=== PATIENT | male | born 1945 | race Caucasian/White ===

== ENCOUNTER 2019-12-14 18:00 | Inpatient (IN) | payer OTHER, SELFPAY ==
[2019-12-14] VITALS (14 sets, daily range): BP systolic 134–168; BP diastolic 50–87; PULSE 78–102; RESP 14–20; TEMP 36.1–37.2; O2SAT 93–100
--- NOTE | 2019-12-14 14:43 | P.HP_ITS ---
H&P: HPI History of Present Illness Chief complaint: BLADDER CLOT Narrative: Clint Ceron is a 74 year old male, well known to me, with a long history of prostate carcinoma that was metastatic at diagnosis in November 2016. He is being managed with a combination of Eligard and androgen receptor inhibitors per his medical oncologist Dr. Cabrera. Patient is known to have occasional problematic local recurrences that have required resection at the bladder neck in the past, most recently in May 2018. Since starting a new blood thinner (the name of which he can't recall) he has been having persistent hematuria for the past 6 weeks. He is recently begun to develop episodes of near clot retention. He was seen in the office today were large clots were evacuated decision was made to proceed with formal clot evacuation and cauterization. Review of Systems Cardiovascular: Cardiovascular: Denies chest pain, Denies lightheadedness, Denies palpitations and Denies dyspnea Respiratory: Respiratory: Denies dyspnea Gastrointestinal: Gastrointestinal: Denies diarrhea, Denies nausea and Denies vomiting Genitourinary: Genitourinary: Reports hematuria and Denies dysuria Endocrine: Endocrine: Denies palpitations Meds Home Medications and Allergies Allergies Allergy/AdvReac Type Severity Reaction Status Date / Time No Known Allergies Allergy Unverified 01/09/19 14:56 Exam Const: General: no acute distress Resp: Effort & Inspection: normal respiratory effort GI: Inspection: non-distended GI Palp: No abdominal tenderness and No Guarding due to palpation present (GI) Auscultation: normal bowel sounds Assessment and Plan Assessment and plan (1) Gross hematuria: Code(s): R31.0 - Gross hematuria Status: Acute (2) Prostate cancer: Code(s): C61 - Malignant neoplasm of prostate Status: Acute Assessment and Plan: * Cystoscopy with clot evacuation
--- NOTE | 2019-12-14 14:53 | ECG_ITS ---
Measurements Intervals [place] Rate: 84 P: 29 VA: 160 QRS: 22 QRSD: 85 T: 60 QT: 388 QTc: 461 Interpretive Statements SINUS RHYTHM EARLY PRECORDIAL R/S TRANSITION BORDERLINE ECG Electronically Signed On 12-14-2019 15:14:48 CDT by Kemal Gramajo D.O.
--- NOTE | 2019-12-14 15:26 | P.PNAN_ITS ---
Anes - Initial Pre Proc Eval Procedure: Operation Date: 12/14/19 14:45 Proposed Procedures p Cystoscopy, Evacuation Bladder Clots - Chase Aguirre MD Date/Time: 12/14/19 15:26 Surgeon: Chase Aguirre MD Pre Op Diagnosis: BLADDER CLOT Patient Data Age: 74 Gender: M Height: Weight: Allergies Allergy/AdvReac Type Severity Reaction Status Date / Time No Known Allergies Allergy Unverified 01/09/19 14:56 Patient hx anesthesia problems: none Family hx anesthesia problems: none [facility] Past Medical History Medical History (Updated 12/14/19 @ 15:29 by Demetrius Reyes MD) Diabetes Gastroesophageal reflux disease HTN (hypertension) Hyperlipidemia Obesity KENISHA (obstructive sleep apnea) Prostate cancer metastatic at diagnosis in November 2016 Anes - Eval Final PreProcedure Day of Procedure 12/14/19 15:26 Patient weight: obese Heart: regular rate and rhythm Lungs: clear to auscultation and normal air movement Airway: Mallampati scale class II Neurological: alert and oriented Last oral intake: >/= 8 hours ASA classification: III Emergent: no Anesthetic plan: proceed Anesthesia type and monitoring: general LMA Informed Consent: The patient's anesthetic plan and its attendant risks and benefits were discussed with the patient/family/POA. Questions were solicited and answers provided to the satisfaction of the patient/family/POA.
[2019-12-14] MEDS: LACTATED RINGERS 1,000 ML 30 ML IV CONT (15:40)
--- NOTE | 2019-12-14 15:51 | SUR.OPER ---
DVT IN PATIENTS RIGHT LEG. LEG IS RED AND WARM TO TOUCH WITH SWELLING. SPOKE WITH DR PETERS ABOUT KIKO. WANTS TO PROCEED WITH KIKO
[2019-12-14 16:08] LABS: Blood Urea Nitrogen 17 mg/dL (9-20); Calcium 9.2 mg/dL (8.4-10.2); Carbon Dioxide 25 mmol/L (22-30); Chloride 102 mmol/L (98-107); Estimated Glomerular Filt Rate > 60; Glucose 121 mg/dL (75-110); Potassium 3.8 mmol/L (3.4-5.0); Sodium 135 mmol/L (137-145)
--- NOTE | 2019-12-14 16:42 | P.OP_ITS ---
Procedure Note - Detailed Date of procedure: 12/14/19 Pre-op diagnosis: BLADDER CLOT Procedure performed: 1. Cystoscopy, urethral dilatation. 2. Clot evacuation. 3. Cauterization bladder neck. Description of procedure: Patient is brought to the operative suite where he was prepped and draped in routine sterile visible on dorsal lithotomy position. Attempt to place a 24 F resectoscope sheath but could because of a mid penile urethral stricture. This turned out to be a fairly tight long stricture that I dilated with sounds. I did place the resectoscope sheath and evacuated a small amount of clot. His bladder was endoscopically normal otherwise. He had m inimal regrowth of prostate cancer at the bladder neck. I extensively cauterized the bladder neck. Urinary efflux was clear at this point. I removed the resectoscope and placed a 22 F hematuria catheter over a wire. Anesthesia: GLMA Surgeon: Siddharth Lord MD Estimated blood loss (mL): 0 Drains: Yes (22F hematuria catheter) Packing: No Pathology: none sent Complications: No immediate complications Condition: stable Disposition: PACU
[2019-12-14 17:17] LABS: Glucose Point of Care 132 (65-105)
--- NOTE | 2019-12-14 17:27 | SUR.PHASEI ---
REPORT TO SUSANNA BYRNE
--- NOTE | 2019-12-14 18:59 | ADMGEN ---
This patient, Clint Ceron, was admitted to 2 Medical Room 244-. Patient/family oriented to hospital policies and general routines including ID bracelet, bed and alarms, visiting hours, pain management, procedures, bathroom and other care routines, personal items, smoking policy, room service/diet, and visiting hours. Valuables list has been completed. Information on how to activate the Rapid Response Team has been discussed. Patient/Family are encouraged to report perceived risks to care and to ask questions if they do not understand what they are told or what they should do.
[2019-12-14] MEDS: DOCUSATE SODIUM 100 MG CAPSULE PO (23:43)
[2019-12-15] VITALS (13 sets, daily range): BP systolic 122–159; BP diastolic 43–58; PULSE 70–96; RESP 16–20; TEMP 36.1–36.8; O2SAT 92–99; BMI 30.2
[2019-12-15 04:52] LABS: Hemoglobin 6.2 g/dL (14.0-18.0)
[2019-12-15 05:02] LABS: Potassium 4.3 mmol/L (3.4-5.0)
[2019-12-15 05:11] LABS: Blood Urea Nitrogen 13 mg/dL (9-20); Calcium 8.4 mg/dL (8.4-10.2); Carbon Dioxide 29 mmol/L (22-30); Chloride 107 mmol/L (98-107); Estimated Glomerular Filt Rate > 60; Glucose 109 mg/dL (75-110); Sodium 137 mmol/L (137-145)
--- NOTE | 2019-12-15 07:01 | WPDUROPN2 ---
Progress Note: A&P Assessment and Plan (1) Prostate cancer: Code(s): C61 - Malignant neoplasm of prostate Status: Acute (2) Gross hematuria: Code(s): R31.0 - Gross hematuria Status: Acute Assessment and Plan: Urine has cleared overnight - will stop CBI. Transfuse 2 units PRBC's. Subjective Subjective Date/Time Seen: 12/15/19 07:01 Comfortable, sleeping. Review of Systems Cardiovascular: Cardiovascular: Denies chest pain, Denies lightheadedness, Denies palpitations and Denies dyspnea Respiratory: Respiratory: Denies dyspnea Gastrointestinal: Gastrointestinal: Denies diarrhea, Denies nausea and Denies vomiting Genitourinary: Genitourinary: Denies hematuria and Denies dysuria Endocrine: Endocrine: Denies palpitations Exam Const: General: no acute distress Resp: Effort & Inspection: normal respiratory effort GI: Inspection: non-distended GI Palp: No abdominal tenderness and No Guarding due to palpation present (GI) Auscultation: normal bowel sounds Objective Data Vital Signs Vital Signs: Vital Signs - 24 hr 12/14/19 15:47 12/14/19 16:19 12/14/19 16:35 Temperature 98.9 F 97.3 F L Pulse Rate 78 95 90 Respiratory Rate 18 20 18 Blood Pressure 134/78 158/87 H 139/57 L Pulse Oximetry 98 96 95 12/14/19 16:55 12/14/19 17:10 12/14/19 17:24 Temperature Pulse Rate 90 93 90 Respiratory Rate 14 20 20 Blood Pressure 148/68 H 153/64 H 153/64 H Pulse Oximetry 94 94 93 12/14/19 17:35 12/14/19 17:50 12/14/19 18:00 Temperature Pulse Rate 89 90 94 Respiratory Rate 18 20 20 Blood Pressure 150/50 H 167/73 H 167/74 H Pulse Oximetry 95 95 98 12/14/19 18:15 12/14/19 18:25 12/14/19 18:47 Temperature 97.0 F L Pulse Rate 90 93 96 Respiratory Rate 18 20 18 Blood Pressure 168/75 H 147/72 H 150/55 H Pulse Oximetry 97 96 100 12/14/19 19:17 12/14/19 20:17 12/15/19 00:17 Temperature 97.0 F L 97.8 F 97.7 F Pulse Rate 102 H 100 96 Respiratory Rate 18 16 16 Blood Pressure 151/61 H 157/53 H 152/58 H Pulse Oximetry 99 98 99 12/15/19 04:17 Temperature 97.6 F Pulse Rate 88 Respiratory Rate 16 Blood Pressure 159/55 H Pulse Oximetry 99 Intake/Output Intake/Output: Intake & Output 12/12/19 12/13/19 12/14/19 12/15/19 23:59 23:59 23:59 23:59 Intake Total 650 500 Output Total 4650 Balance -4000 500 Meds/Results Medications: Active Medications Generic Name Dose Route Start Last Admin Trade Name Freq PRN Reason Stop Dose Admin Hydrocodone Bitart/Acetaminophen 1 tab 12/14/19 18:32 [place] 5-325 Mg PO Q4H PRN Pain Rated 1-6 Cephalexin HCl 500 mg 12/15/19 13:00 Keflex Capsule PO QID LUCIANO Docusate Sodium 100 mg 12/14/19 18:32 12/14/19 23:43 Colace Capsule PO 100 mg BID LUCIANO Administration Fentanyl Citrate 25 mcg 12/14/19 15:30 Sublimaze IV PUSH Q2M PRN Pain Hydromorphone HCl 0.25 mg 12/14/19 15:30 Dilaudid Inj IV PUSH Q5M PRN Pain Hyoscyamine 0.125 mg 12/14/19 18:32 Levsin Tablet SUBLINGUAL Q6H PRN Bladder Spasm Lactated Ringer's 1,000 mls @ 30 mls/hr 12/14/19 14:55 12/14/19 18:30 Lr - Lactated Ringers Iv IV CONT 30 mls/hr .Q24H LUCIANO Infusion Lactated Ringer's 1,000 mls @ 30 mls/hr 12/14/19 15:30 12/14/19 17:01 Lr - Lactated Ringers Iv IV CONT Not Given .Q24H LUCIANO Lactated Ringer's 1,000 mls @ 30 mls/hr 12/14/19 15:30 Lr - Lactated Ringers Iv IV CONT .Q24H LUCIANO Dextrose/Lactated Ringer's 1,000 mls @ 125 mls/hr 12/14/19 18:32 Dextrose 5%/Lactated Ringers IV CONT .Q8H LUCIANO Sodium Chloride 250 mls @ 30 mls/hr 12/15/19 05:09 Normal Saline Iv IV CONT 12/15/19 13:28 .Q8H20M STA Sodium Chloride 250 mls @ 30 mls/hr 12/15/19 06:57 Normal Saline Iv IV CONT 12/15/19 15:16 .Q8H20M STA Morphine Sulfate 2 mg 12/14/19 18:32 Morphine Sulfate Inj IV PUSH Q2H PRN Pain Rated 7-10
[2019-12-15] MEDS: METOPROLOL TARTRATE 12.5 MG TABLET PO ×2 (09:26→20:46)
[2019-12-15] MEDS: DOCUSATE SODIUM 100 MG CAPSULE PO ×2 (09:26→17:57)
[2019-12-15] MEDS: AMLODIPINE BESYLATE 5 MG TABLET PO (09:27)
[2019-12-15] MEDS: ASPIRIN 81 MG ENTERIC TABLET PO (09:27)
[2019-12-15] MEDS: metFORMIN HCL 500 MG TABLET PO ×2 (09:28→18:28)
[2019-12-15] MEDS: ATORVASTATIN 40 MG TABLET PO (09:28)
[2019-12-15] MEDS: SERTRALINE HCL 50 MG TABLET PO (09:28)
[2019-12-15] MEDS: PANTOPRAZOLE 40 MG TABLET PO (09:28)
[2019-12-15] MEDS: lisinopriL 10 MG TABLET PO (09:28)
[2019-12-15] MEDS: predniSONE 5 MG TABLET PO (09:28)
[2019-12-15] MEDS: APIXABAN 5 MG TABLET PO ×2 (09:29→17:57)
[2019-12-15] MEDS: PYRIDOSTIGMINE BROMIDE 60 MG TABLET PO ×3 (09:29→18:28)
[2019-12-15] MEDS: CLOPIDOGREL BISULFATE 75 MG TABLET PO (09:29)
[2019-12-15] MEDS: SODIUM CHLORIDE 0.9% IV 250 ML 30 ML IV CONT (11:17)
[2019-12-15] MEDS: CEPHALEXIN 500 MG CAPSULE PO ×3 (12:09→20:46)
[2019-12-15 19:01] LABS: Hematocrit 28.5 % (42.0-52.0); Hemoglobin 8.7 g/dL (14.0-18.0)
--- NOTE | 2019-12-15 19:47 | PHAR ---
Drug Name: Abiraterone Acetate Ingredients: Abiraterone Acetate -- 250 MG Related Documents: DRUGDEX Evaluations - ABIRATERONE ACETATE Color: White to Off-White Shape: Oval Imprint: 250 , ABR Form: Oral Tablet
[2019-12-16 05:00] VITALS: BP 124/50; PULSE 75; RESP 20; TEMP 36.9; O2SAT 95
[2019-12-16 07:36] LABS: Hemoglobin 8.1 g/dL (14.0-18.0)
[2019-12-16 07:48] LABS: Blood Urea Nitrogen 12 mg/dL (9-20); Calcium 7.6 mg/dL (8.4-10.2); Carbon Dioxide 27 mmol/L (22-30); Chloride 107 mmol/L (98-107); Estimated CRCL calculation 95 ml/min; Estimated Glomerular Filt Rate > 60; Glucose 103 mg/dL (75-110); Potassium 3.6 mmol/L (3.4-5.0); Sodium 137 mmol/L (137-145)
[2019-12-16 08:00] VITALS: PULSE 75; RESP 20; O2SAT 96
[2019-12-16] MEDS: ATORVASTATIN 40 MG TABLET PO (08:49)
[2019-12-16] MEDS: CLOPIDOGREL BISULFATE 75 MG TABLET PO (08:49)
[2019-12-16] MEDS: APIXABAN 5 MG TABLET PO ×2 (08:49→16:41)
[2019-12-16] MEDS: CEPHALEXIN 500 MG CAPSULE PO ×3 (08:49→16:42)
[2019-12-16] MEDS: ASPIRIN 81 MG ENTERIC TABLET PO (08:49)
[2019-12-16 08:50] VITALS: PULSE 75
[2019-12-16] MEDS: metFORMIN HCL 500 MG TABLET PO ×2 (08:50→16:42)
[2019-12-16] MEDS: METOPROLOL TARTRATE 12.5 MG TABLET PO (08:50)
[2019-12-16] MEDS: AMLODIPINE BESYLATE 5 MG TABLET PO (08:50)
[2019-12-16] MEDS: SERTRALINE HCL 50 MG TABLET PO (08:50)
[2019-12-16] MEDS: predniSONE 5 MG TABLET PO (08:50)
[2019-12-16] MEDS: PYRIDOSTIGMINE BROMIDE 60 MG TABLET PO ×3 (08:50→16:43)
[2019-12-16] MEDS: PANTOPRAZOLE 40 MG TABLET PO (08:50)
--- NOTE | 2019-12-16 09:00 | PC.NURSE ---
left message for pharmacy, missing lisinopril.
[2019-12-16 09:36] VITALS: O2SAT 96
--- NOTE | 2019-12-16 10:29 | WPDUROPN2 ---
Progress Note: A&P Additional Plan hematuria has returned after restarting anticoagulation. cbi off. will monitor at this time. repeat H&H in AM. Time Spent With Patient Time with patient: 15 - 25 minutes Subjective Subjective Date/Time Seen: 12/16/19 10:29 urine became bloody overnight. Patient states he was hand irrigated yesterday. Has not required hand irrigation today. CBI off. No abd pain. No f/c/n/v. Review of Systems Review of Systems: All systems reviewed & are unremarkable except as noted in HPI and below Exam Const: General: comfortable and no acute distress HENMT: Mouth: Yes moist mucous membranes Eyes: General: appearance normal, both eyes and all related structures Neck: Neck: no JVD Resp: Effort & Inspection: normal respiratory effort Cardio: Rate: regular rate Rhythm: regular rhythm GI: Inspection: non-distended : Male General Exam: Yes normal external exam Urinary Catheter: Urinary Catheter: patent and draining and urine red Skin: General skin exam: normal color Extrem: General: normal to inspection Psych: Mental Status: mental status grossly normal Affect: normal affect Objective Data Vital Signs Vital Signs: Vital Signs - 24 hr 12/15/19 11:30 12/15/19 13:55 12/15/19 14:23 Temperature 36.6 C 36.1 C L 36.1 C L Pulse Rate 76 70 72 Respiratory Rate 18 16 16 Blood Pressure 131/43 L 122/50 L 122/53 L Pulse Oximetry 97 93 93 12/15/19 16:30 12/15/19 18:00 12/15/19 20:46 Temperature 36.6 C 36.5 C Pulse Rate 78 76 76 Respiratory Rate 16 16 Blood Pressure 135/55 L 146/57 H Pulse Oximetry 94 97 12/15/19 22:00 12/16/19 05:00 12/16/19 08:50 Temperature 36.3 C L 36.9 C Pulse Rate 74 75 75 Respiratory Rate 20 20 Blood Pressure 129/55 L 124/50 L Pulse Oximetry 92 95 12/16/19 09:36 Temperature Pulse Rate Respiratory Rate Blood Pressure Pulse Oximetry 96 Intake/Output Intake/Output: Intake & Output 12/13/19 12/14/19 12/15/19 12/16/19 23:59 23:59 23:59 23:59 Intake Total 650 2330 400 Output Total 4650 3000 850 Balance -4000 -670 -450 Meds/Results Medications: Active Medications Generic Name Dose Route Start Last Admin Trade Name Freq PRN Reason Stop Dose Admin Hydrocodone Bitart/Acetaminophen 1 tab 12/14/19 18:32 [place] 5-325 Mg PO Q4H PRN Pain Rated 1-6 Amlodipine Besylate 5 mg 12/15/19 09:00 12/16/19 08:50 Norvasc PO 5 mg DAILY LUCIANO Administration Apixaban 5 mg 12/15/19 09:00 12/16/19 08:49 Eliquis PO 5 mg BID LUCIANO Administration Aspirin 81 mg 12/15/19 09:00 12/16/19 08:49 Aspirin Ec PO 81 mg DAILY LUCIANO Administration Atorvastatin Calcium 40 mg 12/15/19 09:00 12/16/19 08:49 Lipitor PO 40 mg DAILY LUCIANO Administration Cephalexin HCl 500 mg 12/15/19 13:00 12/16/19 08:49 Keflex Capsule PO 500 mg QID LUCIANO Administration Clopidogrel Bisulfate 75 mg 12/15/19 09:00 12/16/19 08:49 Plavix PO 75 mg DAILY [facility] Administration Docusate Sodium 100 mg 12/14/19 18:32 12/16/19 08:51 Colace Capsule PO Not Given BID [facility] Fentanyl Citrate 25 mcg 12/14/19 15:30 Sublimaze IV PUSH Q2M PRN Pain Hydromorphone HCl 0.25 mg 12/14/19 15:30 Dilaudid Inj IV PUSH Q5M PRN Pain Hyoscyamine 0.125 mg 12/14/19 18:32 Levsin Tablet SUBLINGUAL Q6H PRN Bladder Spasm Lactated Ringer's 1,000 mls @ 30 mls/hr 12/14/19 14:55 12/14/19 18:30 Lr - Lactated Ringers Iv IV CONT 30 mls/hr .Q24H LUCIANO Infusion Lactated Ringer's 1,000 mls @ 30 mls/hr 12/14/19 15:30 12/14/19 17:01 Lr - Lactated Ringers Iv IV CONT Not Given .Q24H LUCIANO Lactated Ringer's 1,000 mls @ 30 mls/hr 12/14/19 15:30 12/15/19 07:34 Lr - Lactated Ringers Iv IV CONT Not Given .Q24H LUCIANO Dextrose/Lactated Ringer's 1,000 mls @ 125 mls/hr 12/14/19 18:32 12/15/19 07:34 Dextrose 5%/Lactated Ringers IV CONT Not Given .Q8H LUCIANO
[2019-12-16 14:00] VITALS: BP 150/56; PULSE 79; RESP 17; TEMP 37.6; O2SAT 95
[2019-12-16] MEDS: lisinopriL 10 MG TABLET PO (16:40)
--- NOTE | 2020-01-11 09:53 | PM.DS ---
DS: Diagnosis Admitting Diagnosis Admitting Diagnosis: Malignant neoplasm of prostate DS: Summary Time Spent with Patient Time attestation: Total time spent providing and/or coordinating discharge services:15 This patient is very well known to me with a history of locally advanced prostate cancer and intermittent episodes of gross hematuria. In the relatively recent past he has had a DVT requiring anticoagulation. He has also had an IVC filter placed in the recent past. On this occasion he was admitted with gross hematuria requiring clot evacuation. We undertook extensive cauterization at the bladder neck. Thereafter his continuous bladder irrigation remained relatively clear and had been stopped and the catheter removed prior to discharge on 12/15 4, 2 days after admission. Exam Const: General: no acute distress Resp: Effort & Inspection: normal respiratory effort GI: Inspection: non-distended GI Palp: No abdominal tenderness and No Guarding due to palpation present (GI) Auscultation: normal bowel sounds Discharge Plan Discharge Consulting providers: Kemal Gramajo ; Chase Aguirre Discharging Clinician: Akbar Sheffield Patient Disposition: Home, Self-Care Activity: no straining and other - see discharge instructions Diet: regular Discharge Instructions: No straining or lifting 10 lbs or more for 2 weeks. Have blood work drawn in 1 week and follow up with Urology. Return to the ER with concerning symptoms: dizziness, weakness, or unable to clear clots. Discharge with Henry catheter. Patient Instructions: Antibiotic Form, Apixaban (By mouth) Stand Alone Forms: General Discharge Information Follow-up/Referrals: Siddharth Lord MD [Physician] - Discharge Medications: Continued metformin 500 mg tablet 500 mg PO BID RF: 0 pyridostigmine bromide 60 mg tablet 90 mg PO TID RF: 0 sertraline 50 mg tablet 50 mg PO HS RF: 0 atorvastatin 40 mg tablet 40 mg PO HS RF: 0 prednisone 5 mg tablet 5 mg PO DAILY RF: 0 clopidogrel 75 mg tablet 75 mg PO HS RF: 0 amlodipine 5 mg tablet 5 mg PO HS RF: 0 metoprolol tartrate 25 mg tablet 12.5 mg PO BID RF: 0 calcium carbonate [Oysco-500] 500 mg calcium (1,250 mg) Tablet 500 mg PO BID RF: 0 esomeprazole magnesium 20 mg Tablet,Delayed Release (Dr/Ec) 20 mg PO QPM RF: 0 No Action abiraterone 250 mg Tablet 1,000 mg PO DAILY RF: 0 Other Ambulatory Orders: Hemoglobin and Hematocrit (Routine) Timeframe: 1 Week Location: Determined by Patient Ordered By: Akbar Sheffield Date of admission: 12/14/19 18:00 Primary Care Provider: UNKNOWN,DOCTOR Admitting Provider: Siddharth Lord Discharge Date/Time: 12/16/19 18:45 Attending physician on admission: Akbar Sheffield
== END 2019-12-16 18:45 | disposition home or self-care (01) | DRG 716 ==
LOC: ANH2MED 12-16 12:57
PROVIDERS: Anesthesiology; Urology; Admitting Provider Urology; Visit Provider Surgery
PROC: 0TCB8ZZ Extirpation of Matter from Bladder, Via Natural or Artificial Opening Endoscopic (ICD-10-PCS; CPT 52001; principal; 2019-12-14 14:45)
DX: C61 Malignant neoplasm of prostate (principal); R31.0 Gross hematuria; Z86.718 Personal history of other venous thrombosis and embolism
CPT/HCPCS: 36415; 36430; 80048; 85014; 85018; 86850; 86900; 86901; 86923; 93005; A9270; C1757; C1758; C1769; J0690; J1100; J2405; J2704; J3010; J7050; J7120; J7512; P9016

== ENCOUNTER 2020-01-03 15:53 | Inpatient (IN) | payer OTHER, SELFPAY ==
--- NOTE | ~2020-01-03 | XR_ITS ---
EXAMINATION: XR chest 1V portable DATE: 01/15/2020 06:00 INDICATION: Respiratory failure TECHNIQUE: frontal view of the chest was obtained. COMPARISON: Chest radiograph dated 01/14/2020, 01/13/2020 and 01/12/2020 FINDINGS: Endotracheal tube tip 3.3 cm above the rogleio. Right internal jugular central venous catheter with di stal tip at the midsuperior vena cava. Nasogastric tube extends below the left hemidiaphragm with di stal tip collimated off the study. Patchy bilateral airspace opacities without significant interval change accounting for differences in technique. No pneumothorax or definitive pleural effusion. The cardiomediastinal silhouette is mary l. Sclerotic lesions at the right humeral head and at T8. IMPRESSION: 1. No significant interval change in patchy bilateral opacities consistent with pneumonia, pulmonary edema, ARDS or some combination thereof. 2. A couple sclerotic bone lesions consistent with metastatic disease. Reviewed, dictated and finalized at location A.
--- NOTE | ~2020-01-03 | XR_ITS ---
EXAMINATION: XR chest 1V portable DATE: 01/19/2020 05:33 INDICATION: Bilateral pulmonary infiltrates TECHNIQUE: frontal view of the chest was obtained. COMPARISON: Chest radiograph dated 01/18/2020 FINDINGS: Endotracheal tube tip 3.4 cm above the rogelio. Nasogastric tube extends below the left hemidiaphragm with distal tip collimated off the study. Right internal jugular central venous catheter with distal tip at the midsuperior vena cava. Diffuse bilateral interstitial and patchy airspace opacities throughout both lungs. No pulmonary kuldip a or pleural effusion. The cardiomediastinal silhouette is normal. Sclerotic bone lesions at T8 and r ight humeral head. IMPRESSION: 1. No significant interval change in diffuse bilateral lung disease consistent with pneumonia, pulmon justice edema, ARDS or some combination thereof. 2. Sclerotic bone lesions consistent with metastatic disease. Reviewed, dictated and finalized at location A. IMPRESSION: 1. No significant interval change in diffuse bilateral lung disease consistent with pneumonia, pulmonary edema, ARDS or some combination thereof. 2. Sclerotic bone lesions consistent with metastatic disease.
--- NOTE | ~2020-01-03 | XR_ITS ---
XR chest 1V portable DATE: 01/20/2020 06:13 INDICATION: Bilateral infiltrates TECHNIQUE: Portable AP chest on 01/30/2020 at 0529 hours COMPARISON: 01/29/2020 portable AP chest at 0523 hours FINDINGS: Bilateral hyperinflation. There are extensive diffuse bilateral pulmonary infiltrates, with out significant change since 01/29/2020. No pneumothorax or pleural effusion is evident. Heart size is within normal range. Aortic arch calcification. ET tube tip approximately 5.3 cm above rogelio; ideal range is 205 cm. NG tube in stomach. Right internal jugular central venous catheter tip overlies the superior vena cava. IMPRESSION: No definite change of extensive bilateral pulmonary infiltrates since 01/19/2020 Reviewed, dictated and finalized at location A. IMPRESSION: No definite change of extensive bilateral pulmonary infiltrates sin ce 01/19/2020
--- NOTE | ~2020-01-03 | XR_ITS ---
EXAMINATION: XR chest 1V portable DATE: 01/12/2020 06:13 INDICATION: Respiratory failure TECHNIQUE: frontal view of the chest was obtained. COMPARISON: Chest radiograph dated 01/11/2020 FINDINGS: Endotracheal tube tip 3.2 cm above the rogelio. Nasogastric tube extends below the left hemidiaphragm with distal tip collimated off the study. Right internal jugular central venous catheter with distal tip in the mid superior vena cava. No significant interval change in diffuse bilateral interstitial and airspace opacities. The previous ly small left pleural effusion is not definitively identified in the current study. No pneumothorax. The cardiomediastinal silhouette is normal. Again seen are sclerotic lesions at the right humeral hea d and throughout the T8 vertebral body. IMPRESSION: 1. Unchanged diffuse lung disease consistent with pneumonia, pulmonary edema, ARDS or some combinatio n thereof. 2. A couple sclerotic bone lesions consistent with metastatic disease. Reviewed, dictated and finalized at location A. IMPRESSION: 1. Unchanged diffuse lung disease consistent with pneumonia, pulmonary edema, A RDS or some combination thereof. 2. A couple sclerotic bone lesions consistent with metastatic disease.
--- NOTE | ~2020-01-03 | CT_ITS ---
EXAMINATION: CTA chest PE protocol EXAM DATE: 01/08/2020 19:10 INDICATION: Hypoxia, recent DVT. TECHNIQUE: Spiral CTA of the chest (pulmonary arteries) was performed with 100 cc Omnipaque 350 intr avenous contrast injection. Images were acquired during the pulmonary arterial phase. Coronal maxi mum intensity projection 3D-reconstructions were created by the technologist on dedicated workstation . Axial, coronal and sagittal reformatted images were reviewed. The dose-length product (DLP) for t his examination was 470.13 mGy-cm. The exposure was tailored according to patient size (auto mA exp osure control), and iterative reconstruction (ASIR) was used as additional dose reduction technique. Comparison is made to prior examination from 07/11/2019. FINDINGS: There are no pulmonary emboli in the 1st through 3rd order (central and interlobar) pulmon justice arteries. Some loss of attenuation in the left basilar segmental pulmonary arteries due to respi ratory motion, but no intraluminal filling defects suspected. No thoracic aortic dissection. There is moderate amount of groundglass airspace disease throughout the dependent portions of the brett gs, new compared to the previous chest CT. Probably acute process such as be pneumonia, acute lung in jury, edema. Small bilateral pleural effusions. Tracheobronchial tree is patent. There is right h ilar lymphadenopathy with a lymph node or conglomerate of nodes measuring 3.0 x 2.1 cm. Probably reac tive. There is no pneumothorax. Heart normal in size. There is mild to moderate coronary arteria l calcification, arterial sclerosis. There is small sliding gastroesophageal hiatal hernia. Upper ab domen is unremarkable. There is thoracic spondylosis without osteoblastic or osteolytic lesions yovana ntified. IMPRESSION: 1. Limited segmental evaluation, but no pulmonary emboli are suspected. 2. Moderate amount of groundglass airspace disease, likely acute process such as infection and/or ed rodo. Acute lung injury from COVID 19 also possible. 3. Small pleural effusions. 4. Right hilar lymphadenopathy likely reactive. 5. Small hiatal hernia. Reviewed, dictated and finalized at location A. IMPRESSION: 1. Limited segmental evaluation, but no pulmonary emboli are suspected. 2. Moderate amount of groundglass airspace disease, likely acute process such as infection and/or edema. Acute lung injury from COVID 19 also possible. 3. Small pleural effusions. 4. Right hilar lymphadenopathy likely reactive. 5. Small hiatal hernia.
--- NOTE | ~2020-01-03 | XR_ITS ---
EXAMINATION: XR chest 1V portable DATE: 01/09/2020 05:00 INDICATION: Oxygen desaturation. Fever. TECHNIQUE: A single frontal view of the chest was obtained. COMPARISON: Chest 2 views 01/08/2020, chest CT 01/08/2020 FINDINGS: There are airspace and interstitial opacities in all lung zones bilaterally, right worse th an left. No pleural effusion or pneumothorax. The heart size is normal. There are sclerotic lesions i n right humeral head and T8 vertebral body. IMPRESSION: 1. Worsened diffuse lung disease, consistent with atypical pneumonia such as COVID-19 versus pulmonar y edema. 2. Sclerotic lesions of bone, consistent with metastatic disease. Reviewed, dictated and finalized at location A. IMPRESSION: 1. Worsened diffuse lung disease, consistent with atypical pneumonia such as CO VID-19 versus pulmonary edema. 2. Sclerotic lesions of bone, consistent with metastatic disease.
--- NOTE | ~2020-01-03 | XR_ITS ---
EXAMINATION: XR chest 1V portable DATE: 01/16/2020 05:59 INDICATION: Bilateral pulmonary infiltrates TECHNIQUE: frontal view of the chest was obtained. COMPARISON: Chest radiographs dated 01/15/2020-01/13/2020 FINDINGS: Endotracheal tube tip 3.7 cm above the rogelio. Right internal jugular central venous catheter with di stal tip at the caudal superior vena cava. Nasogastric tube extends below the left hemidiaphragm wit h distal tip collimated off the study. No significant interval change in patchy bilateral airspace opacities. No pleural effusion or pneumot horax. The cardiomediastinal silhouette is normal. Sclerotic lesion at T8 and more subtly at the left humeral neck. IMPRESSION: 1. Unchanged diffuse bilateral lung disease consistent with pneumonia, pulmonary edema, ARDS or some combination thereof. 2. Sclerotic bone lesions consistent with metastatic disease. Reviewed, dictated and finalized at location A. IMPRESSION: 1. Unchanged diffuse bilateral lung disease consistent with pneumonia, pulmonar y edema, ARDS or some combination thereof. 2. Sclerotic bone lesions consistent with metastatic disease.
--- NOTE | ~2020-01-03 | CT_ITS ---
EXAMINATION: CT abdomen pelvis wo con EXAM DATE: 01/03/2020 17:19 INDICATION: Fully clotted. Urinary retention. TECHNIQUE: Spiral CT of the abdomen and pelvis was performed without contrast. Axial, coronal and s agittal images were reviewed. The dose-length product (DLP) for this examination was 1239.78 mGy-cm. The exposure was tailored according to patient size (auto mA exposure control), and iterative recon struction (ASIR) was used as additional dose reduction technique. Comparison is made to prior examina tion from 07/11/2019. FINDINGS: The liver, spleen, adrenal glands and pancreas are unremarkable. Gallbladder is unremarkab le. No biliary obstruction. There is Henry catheter in expected position. The bladder is collapsed. There is moderate amount of pericystic inflammation, consistent with cystitis. There is mild to mode rate right-sided hydronephrosis, moderate to severe left-sided hydronephrosis, probably chronic parti cularly on the left with completely extend renal cortex, probably minimal functioning renal parenchym a on this side. There is been development of the right-sided hydronephrosis and progression of the le ft-sided hydronephrosis compared to 2019. There are pathologically enlarged bilateral iliac, obturato r lymph nodes. Mildly enlarged lower retroperitoneal lymph nodes. There is an IVC filter. There is m ild scattered arteriosclerotic disease. Some generalized body wall fat stranding, and some right uppe r leg edema. There is nonspecific edema at the base of the penis. The appendix is normal. The stomach and small bowel are unremarkable. There is colonic fluid, corre late for diarrhea. No free intraperitoneal gas. The interventricular septum is perceptible, sugge sting patient is anemic. Mild basilar fibrosis. There is scattered osteoblastic disease, pelvis, r ight hip which also has replacement, T8 among others. Compared to prior study, lymphadenopathy has developed. Difficult to appreciate significant interval change in the osteoblastic disease. IMPRESSION: 1. Henry catheter in position. Development of right-sided mild to moderate and progression of left-s ided moderate to severe hydronephrosis. 2. Pericystic inflammation, could be acute or chronic cystitis. Bladder is mostly collapsed. 3. Pelvic, retroperitoneal metastatic lymphadenopathy. 4. Osteoblastic disease. 5. Colonic fluid. Reviewed, dictated and finalized at location A. IMPRESSION: 1. Henry catheter in position. Development of right-sided mild to moderate and progression of left-sided moderate to severe hydronephrosis. 2. Pericystic inflammation, could be acute or chronic cystitis. Bladder is mos tly collapsed. 3. Pelvic, retroperitoneal metastatic lymphadenopathy. 4. Osteoblastic disease. 5. Colonic fluid.
--- NOTE | ~2020-01-03 | XR_ITS ---
EXAMINATION: XR chest 1V portable DATE: 01/17/2020 05:53 INDICATION: Bilateral pulmonary infiltrates TECHNIQUE: frontal view of the chest was obtained. COMPARISON: Chest radiograph dated 01/16/2020 FINDINGS: Endotracheal tube tip 3.6 cm above the rogelio. Right internal jugular central venous catheter with di stal tip at the midsuperior vena cava. Nasogastric tube extends below the left hemidiaphragm with di stal tip collimated off the study. No significant interval change accounting for leftward rotation of the patient in patchy bilateral ai rspace opacities which relatively spare the left upper lung zone. No pneumothorax or definitive pleur al effusion. The cardiomediastinal silhouette is normal. Sclerotic bone lesions at T8 and at the prox imal left humerus consistent with known metastatic disease. IMPRESSION: 1. No significant interval change in bilateral lung disease consistent with pneumonia, pulmonary kuldip a, ARDS or some combination thereof. Reviewed, dictated and finalized at location A. IMPRESSION: 1. No significant interval change in bilateral lung disease consistent with pne umonia, pulmonary edema, ARDS or some combination thereof.
--- NOTE | ~2020-01-03 | US_ITS ---
EXAMINATION:US venous doppler LE RT INDICATION:Right leg swelling TECHNIQUE: Multiple grayscale, color flow and Doppler images of the right lower extremity deep venous systems were obtained and reviewed. COMPARISON:No prior studies for comparison. FINDINGS: The common femoral, superficial femoral and popliteal veins demonstrate normal respiratory variation, augmentation and compressibility. Color flow is also seen within the posterior tibial, pe roneal, greater saphenous and profunda veins. There are multiple hypoechoic masses in the right groin , consistent with lymph nodes, largest measuring approximately 2 cm. IMPRESSION: 1: No lower extremity deep venous thrombosis. 2: Right inguinal lymphadenopathy, likely reactive. Reviewed, dictated and finalized at location A.
--- NOTE | ~2020-01-03 | XR_ITS ---
EXAMINATION: XR chest 1V portable DATE: 01/22/2020 05:46 INDICATION: Respiratory failure. COVID-19 pneumonia. TECHNIQUE: A single frontal view of the chest was obtained. COMPARISON: Chest single view 01/21/2020, chest CT 01/08/2020 FINDINGS: There are interstitial and airspace opacities throughout the lungs bilaterally. No pleural effusion or pneumothorax. The heart size is normal. The endotracheal tube tip is 3.5 cm above the car teo. The nasogastric tube tip is beyond the inferior margin of the radiograph, but at least to the st omach. A right internal jugular central venous catheter is seen with tip in the superior vena cava. T here are sclerotic lesions in right humeral head and T8 vertebral body. IMPRESSION: 1. Stable diffuse lung disease, consistent with pneumonia versus pulmonary edema versus acute respira tory distress syndrome (ARDS). 2. Sclerotic lesions of bone, consistent with metastatic disease. Reviewed, dictated and finalized at location A. IMPRESSION: 1. Stable diffuse lung disease, consistent with pneumonia versus pulmonary kuldip a versus acute respiratory distress syndrome (ARDS). 2. Sclerotic lesions of bone, consistent with metastatic disease.
--- NOTE | ~2020-01-03 | XR_ITS ---
EXAMINATION: XR fluoroscopy no charge DATE: 01/04/2020 13:07 INDICATION: Prostate cancer TECHNIQUE: 2 fluoroscopic images of the abdomen and pelvis were obtained during procedure performed brian Lord. Radiologist was not present for the imaging or procedure. The amount of fluoroscopy zora e used during this procedure was 0.1 minutes. COMPARISON: None. FINDINGS: IVC filter projecting over the right side of the lumbar spine at L1 and L2. Partially visualized bipo lar type right hip hemiarthroplasty. Mild lumbar levorotocurvature. IMPRESSION: 1. Fluoroscopy utilized during urologic procedure. See procedure note for further detail. Reviewed, dictated and finalized at location A. IMPRESSION: 1. Fluoroscopy utilized during urologic procedure. See procedure note for furth er detail.
--- NOTE | ~2020-01-03 | XR_ITS ---
EXAMINATION: XR abdomen NG/feed tube insert DATE: 01/10/2020 06:06 INDICATION: Orogastric tube placement. TECHNIQUE: An upright view of the abdomen was obtained. COMPARISON: CT abdomen and pelvis 01/03/2020 FINDINGS: There are no dilated loops of bowel. There is a filter in the inferior vena cava. The nasog astric tube tip is in the stomach. There is sclerosis in T8 and T11, consistent with metastatic disea se. IMPRESSION: 1. Nasogastric tube tip in the stomach. 2. Sclerotic lesions of bone, consistent with metastatic disease. Reviewed, dictated and finalized at location A.
--- NOTE | ~2020-01-03 | XR_ITS ---
EXAMINATION: XR chest 1V portable DATE: 01/11/2020 05:56 INDICATION: Respiratory failure. COVID-19 pneumonia. TECHNIQUE: A single frontal view of the chest was obtained. COMPARISON: Chest single view 01/10/2020, chest CT 01/08/2020 FINDINGS: There are airspace and interstitial opacities in all lung zones bilaterally, worst at left lung base. There is a small left pleural effusion. No pneumothorax. The heart size is normal. There a re sclerotic lesions in right humeral head and T8 vertebral body. A right internal jugular central ve nous catheter is seen with tip in the superior vena cava. The nasogastric tube tip is beyond the infe rior margin of the radiograph, but at least to the stomach. The endotracheal tube tip is 2.7 cm above the rogelio. IMPRESSION: 1. Unchanged diffuse lung disease, consistent with pneumonia versus pulmonary edema versus acute resp iratory distress syndrome (ARDS). 2. Small left pleural effusion. 3. Sclerotic lesions of bone, consistent with metastatic disease. Reviewed, dictated and finalized at location A. IMPRESSION: 1. Unchanged diffuse lung disease, consistent with pneumonia versus pulmonary e norris versus acute respiratory distress syndrome (ARDS). 2. Small left pleural effusion. 3. Sclerotic lesions of bone, consistent with metastatic disease.
--- NOTE | ~2020-01-03 | US_ITS ---
EXAMINATION: US venous doppler [facility] EXAM DATE: 01/04/2020 15:41 INDICATION: Left leg swelling. TECHNIQUE: Multiple grayscale, color flow and Doppler images of the left lower extremity deep venous system were obtained and reviewed. There is no prior study for comparison. FINDINGS: The left common femoral, femoral and profunda veins demonstrate normal color flow, respirat ory variation, augmentation and compressibility. Compressibility, color flow confirmed within the le ft popliteal, posterior tibial, peroneal, and greater saphenous veins. IMPRESSION: 1. No left lower extremity deep venous thrombosis. Reviewed, dictated and finalized at location A.
--- NOTE | ~2020-01-03 | XR_ITS ---
XR chest 1V portable 01/13/2020 06:26 Indication: Respiratory failure Procedure: AP portable chest Comparison: Comparison to multiple prior studies sequentially, with oldest reviewed study dated 01/08. Findings: Borderline heart size. Right IJ central line tip in the SVC. Endotracheal tube tip 3.5 cm a carlos alberto the rogelio. NG tube in the stomach. No significant change to diffuse bilateral airspace disease. No pleural effusion or pneumothorax. Impression: 1: Stable diffuse bilateral airspace disease which may represent edema or pneumonia. Reviewed, dictated and finalized at location A. Impression: 1: Stable diffuse bilateral airspace disease which may represent edema or pneum onia.
--- NOTE | ~2020-01-03 | XR_ITS ---
EXAMINATION: XR chest 1V portable DATE: 01/18/2020 05:40 INDICATION: Bilateral pulmonary infiltrates. TECHNIQUE: frontal view of the chest was obtained. COMPARISON: Chest radiograph dated 01/17/2020 FINDINGS: Endotracheal tube tip 3.6 cm above the rogelio. Right internal jugular central venous catheter with di stal tip at the midsuperior vena cava. Nasogastric tube extends below the left hemidiaphragm with di stal tip collimated off the study. Again seen are extensive bilateral patchy airspace opacities with areas appearing to demonstrate slig ht improvement in some slight worsening which may be related to changes in positioning. No pleural ef fusion or pneumothorax. The cardiomediastinal silhouette is normal. Sclerotic bone lesions at the pro ximal humeri and at T8 consistent with metastatic disease. IMPRESSION: 1. No significant interval change in diffuse bilateral lung disease consistent with pneumonia, pulmon justice edema, ARDS or some combination thereof. Reviewed, dictated and finalized at location A. IMPRESSION: 1. No significant interval change in diffuse bilateral lung disease consistent with pneumonia, pulmonary edema, ARDS or some combination thereof.
--- NOTE | ~2020-01-03 | XR_ITS ---
XR chest 1V portable DATE: 01/21/2020 06:19 INDICATION: Respiratory failure TECHNIQUE: Portable AP chest on 01/21/2020 at 0530 hours COMPARISON: 01/30/2020 portable AP chest at 0529 hours FINDINGS: Persistent diffuse extensive bilateral pulmonary patchy infiltrates, mildly increased since 01/16/2020. ET tube in satisfactory position 3.8 cm above rogelio. NG tube in stomach. Right internal jugular cent ral venous catheter tip overlies the superior vena cava. No pneumothorax. No pleural effusion is evid ent. IMPRESSION: Extensive bilateral pulmonary infiltrates, increased since 01/20/2020 Reviewed, dictated and finalized at location A.
--- NOTE | ~2020-01-03 | XR_ITS ---
EXAMINATION: XR chest ET placement DATE: 01/10/2020 06:06 INDICATION: Intubation. COVID-19 pneumonia. TECHNIQUE: A single frontal view of the chest was obtained. COMPARISON: Chest single view 01/09/2020 FINDINGS: There are airspace and interstitial opacities in all lung zones bilaterally. No pleural eff usion or pneumothorax. The heart size is normal. The endotracheal tube tip is 3.5 cm above the rogeilo . The nasogastric tube tip is beyond the inferior margin of the radiograph, but at least to the stoma ch. A right internal jugular central venous catheter is seen with tip in the superior vena cava. Ther e is a sclerotic lesion in T8 vertebral body. IMPRESSION: 1. Worsened diffuse lung disease, consistent with pneumonia versus pulmonary edema. 2. Sclerotic lesion of bone, consistent with metastatic disease. Reviewed, dictated and finalized at location A. IMPRESSION: 1. Worsened diffuse lung disease, consistent with pneumonia versus pulmonary ed rodo. 2. Sclerotic lesion of bone, consistent with metastatic disease.
--- NOTE | ~2020-01-03 | XR_ITS ---
EXAMINATION: XR chest 2V DATE: 01/08/2020 10:49 INDICATION: Hypoxia. Prostate cancer. TECHNIQUE: Frontal and lateral views of the chest were obtained. COMPARISON: CT abdomen and pelvis 01/03/2020, chest CT 07/11/2019 FINDINGS: There are airspace and interstitial opacities in the mid and lower lung zones. Again seen i s mild elevation of right hemidiaphragm. No pleural effusion or pneumothorax. The heart size is mary l. There are sclerotic lesions in right humeral head and T8 vertebral body. IMPRESSION: 1. Airspace and interstitial opacities in the mid and lower lung zones, consistent with atelectasis v ersus pneumonia versus pulmonary edema superimposed on chronic interstitial lung disease. 2. Sclerotic lesions of bone, consistent with metastatic disease. Reviewed, dictated and finalized at location A. IMPRESSION: 1. Airspace and interstitial opacities in the mid and lower lung zones, consist ent with atelectasis versus pneumonia versus pulmonary edema superimposed on ch ronic interstitial lung disease. 2. Sclerotic lesions of bone, consistent with metastatic disease.
--- NOTE | ~2020-01-03 | XR_ITS ---
XR chest 1V portable 01/14/2020 06:30 Indication: Respiratory failure Procedure: AP portable chest Comparison: Comparison to multiple prior studies sequentially, with oldest reviewed study dated 01/09. Findings: Endotracheal tube tip is 4.5 cm above the rogelio. NG tube in the stomach. Right IJ central line tip in the SVC. Stable diffuse bilateral airspace disease. Cardiomediastinal silhouette is stabl e. No acute osseous abnormality. Small pleural effusions. Impression: 1: Stable diffuse bilateral airspace disease and pleural effusions, pneumonia versus edema. Reviewed, dictated and finalized at location A. Impression: 1: Stable diffuse bilateral airspace disease and pleural effusions, pneumonia v ersus edema.
--- NOTE | ~2020-01-03 | XR_ITS ---
EXAMINATION: XR chest 1V portable DATE: 01/23/2020 05:54 INDICATION: Respiratory failure. COVID-19 pneumonia. TECHNIQUE: A single frontal view of the chest was obtained. COMPARISON: Chest single view 01/22/2020 FINDINGS: There are airspace and interstitial opacities throughout the lungs bilaterally. No pleural effusion or pneumothorax. The heart size is normal. The endotracheal tube tip is 4.1 cm above the car teo. The nasogastric tube tip is beyond the inferior margin of the radiograph, but at least to the st omach. A right internal jugular central venous catheter is seen with tip in the superior vena cava. T here is a sclerotic lesion in T8 vertebral body. IMPRESSION: 1. Stable diffuse lung disease, consistent with pneumonia versus pulmonary edema versus acute respira tory distress syndrome (ARDS). 2. Sclerotic bone lesion, consistent with metastatic disease. Reviewed, dictated and finalized at location A. IMPRESSION: 1. Stable diffuse lung disease, consistent with pneumonia versus pulmonary kuldip a versus acute respiratory distress syndrome (ARDS). 2. Sclerotic bone lesion, consistent with metastatic disease.
--- NOTE | ~2020-01-03 | XR_ITS ---
XR abdomen NG/feed tube insert INDICATION: Evaluate NG tube placement position. TECHNIQUE: Limited KUB perform for evaluating NG tube . COMPARISON: FINDINGS: NG tube tip in the stomach. Visualized bowel gas pattern is unremarkable.There is an IVC f ilter. IMPRESSION: 1: NG tube tip in the stomach. Reviewed, dictated and finalized at location A.
[2020-01-03 16:08] VITALS: BP 117/59; PULSE 82; RESP 20; TEMP 36.8; O2SAT 98
--- NOTE | 2020-01-03 16:14 | ED.GENADULT ---
HPI - General Adult General Chief complaint: Urogenital-Male Stated complaint: Blocked scott catheter Time Seen by Provider: 01/03/20 16:15 Source: patient and family Mode of arrival: ambulatory Limitations: no limitations History of Present Illness HPI narrative: Patient is a 74-year-old male with a history of prostate cancer and chronic indwelling Scott catheter who presents for evaluation of urinary retention. Patient reportedly has had no draining into the Scott catheter over the past 20 hours. Patient reports some overflow incontinence with urine and blood coming out around the Scott catheter. Patient states they have been trying to flush the catheter at home without resolution of the retention. Patient follows with Dr. Lord for his urinary retention and prostate cancer. No current radiation therapy, patient takes an oral chemotherapy. Patient reports abdominal distention, nausea without vomiting. No fever or chills. Per chart review, patient had cystoscopy with clot evacuation with Dr. Aguirre on December 18. Prior to that he had been seen by Dr. Lord several times for hematuria and problems with clots obstructing scott. Related Data Home Medications Medication Instructions Recorded Confirmed Eliquis 5 mg PO BID 12/14/19 12/14/19 amlodipine 5 mg PO DAILY 12/14/19 12/14/19 aspirin 81 mg PO DAILY 12/14/19 12/14/19 atorvastatin 40 mg PO DAILY 12/14/19 12/14/19 calcium carbonate [[place]-500] 500 mg PO BID 12/14/19 12/14/19 clopidogrel 75 mg PO DAILY 12/14/19 12/14/19 esomeprazole magnesium 20 mg PO DAILY 12/14/19 12/14/19 lisinopril 10 mg PO DAILY 12/14/19 12/14/19 metformin 500 mg PO BID 12/14/19 12/14/19 metoprolol tartrate 12.5 mg PO BID 12/14/19 12/14/19 prednisone 5 mg PO DAILY 12/14/19 12/14/19 pyridostigmine bromide 90 mg PO TID 12/14/19 12/14/19 sertraline 50 mg PO DAILY 12/14/19 12/14/19 Allergies Allergy/AdvReac Type Severity Reaction Status Date / Time No Known Allergies Allergy Verified 01/03/20 18:22 Review of Systems Review of Systems: Narrative: CONSTITUTIONAL: Denies fever, chills, or sweats. ENT: Denies rhinorrhea, congestion, sore throat, or otalgia. CARDIOVASCULAR: Denies chest pain, palpitations, or edema. RESPIRATORY: Denies cough or dyspnea. GASTROINTESTINAL: Reports abdominal pain, nausea, denies vomiting or diarrhea GENITOURINARY: Reports hematuria and urinary retention SKIN: Denies rash or itching. MUSCULOSKELETAL: Denies back pain, joint pain, or myalgia. NEUROLOGIC: Denies headache, numbness, or weakness. [facility] Past Medical History Medical History Diabetes Gastroesophageal reflux disease HTN (hypertension) Hyperlipidemia Obesity KENISHA (obstructive sleep apnea) Prostate cancer metastatic at diagnosis in November 2016 Social History Social History Smoking status: Never smoker Alcohol intake: never Substance use: never Gender identity (if verbalized by the patient): Male Spiritual care concerns: No Agree to blood products: Yes Exam Narrative: Exam Narrative: GENERAL: Awake, alert, conversant, uncomfortable appearing HEAD: Normocephalic, atraumatic. EYES: PERRLA and EOMI. ENT: Nares clear, no rhinorrhea or epistaxis. Mucous membranes moist. NECK: Supple. CHEST: No respiratory distress, breathing even and non labored HEART: Regular rate, sinus rhythm ABDOMEN: Mildly distended, tender in the suprapubic area, no guarding : Indwelling Scott with hematuria present, minimal output EXTREMITIES: Normal range of motion. No edema. SKIN: Warm, dry, no rash. NEURO:No focal deficits. Alert and oriented x3 Course Course Emergency Course: Patient presented for evaluation of Scott catheter which seems to be clotted as well as abdominal distention. At the time of initial assessment, ABCs are intact and vital signs are stable. Patient has some mild distention and tende
[2020-01-03 16:53] LABS: Basophils Percent Auto 0.6 % (0.2-1.2); Eosinophils Absolute Auto 0.1 K/mm3 (0-0.3); Eosinophils Percent Auto 1.1 % (0-4.4); Immature Granulocyte Absolute 0.07 K/mm3 (0.00-0.031); Immature Granulocyte Percent A 1.3 % (0-0.5); Lymphocytes Absolute Auto 1.07 K/mm3 (0.9-3.2); Lymphocytes Percent Auto 20.4 % (18.3-44.2); Mean Corpuscular Hemoglobin 26.2 pg (26-34); Mean Corpuscular Volume 87.5 fl (80-100); Mean Platelet Volume 10.5 fl (7.4-10.4); Monocytes Absolute Auto 0.3 K/mm3 (0.1-0.6); Monocytes Percent Auto 5.9 % (2.6-8.5); Neutrophils Absolute Auto 3.7 K/mm3 (1.3-6.7); Neutrophils Percent Auto 70.7 % (45.5-73.1); Platelet Count Result 347 k/mm3 (150-375); Red Blood Count 3.43 M/mm3 (4.6-6.20); Red Cell Distribution Width 17.9 % (11.5-14.5); White Blood Count 5.3 K/mm3 (4.5-10.0)
--- NOTE | 2020-01-03 17:00 | PC.NURSE ---
3 way urinary cath continued from prior to arrival, Cath was irrigated by this RN with minimal small blood clots. Unable to get cath to drain after irrigation. EDP was notified.
[2020-01-03 17:05] LABS: Blood Urea Nitrogen 11 mg/dL (9-20); Calcium 8.5 mg/dL (8.4-10.2); Carbon Dioxide 24 mmol/L (22-30); Chloride 107 mmol/L (98-107); Estimated CRCL calculation 66 ml/min; Estimated Glomerular Filt Rate > 60; Glucose 109 mg/dL (75-110); Potassium 4.2 mmol/L (3.4-5.0); Sodium 137 mmol/L (137-145)
--- NOTE | 2020-01-03 18:00 | PC.NURSE ---
RN x 2 attempt to insert 3way cath with no success. EDP notified
[2020-01-03 18:42] LABS: INR 0.9; Prothrombin Time 12.3 Seconds (11.1-14.7)
[2020-01-03 18:43] LABS: Partial Thromboplastin Time 39.8 SECONDS (22.3-36.8)
--- NOTE | 2020-01-03 18:51 | PC.NURSE ---
RNsx2 attempted to insert scott with coude tip with no success. EDP notified.
[2020-01-03 18:52] VITALS: BP 136/55; PULSE 75; RESP 17; O2SAT 96
[2020-01-03 20:16] VITALS: BP 130/57; PULSE 71; RESP 14; TEMP 37.3; O2SAT 100
--- NOTE | 2020-01-03 20:43 | ADMGEN ---
This patient, Clint Ceron, was admitted to Medical Room . Patient/family oriented to hospital policies and general routines including ID bracelet, bed and alarms, visiting hours, pain management, procedures, bathroom and other care routines, personal items, smoking policy, room service/diet, and visiting hours. Valuables list has been completed. Information on how to activate the Rapid Response Team has been discussed. Patient/Family are encouraged to report perceived risks to care and to ask questions if they do not understand what they are told or what they should do.
[2020-01-03 21:45] VITALS: BP 139/56; PULSE 75; RESP 20; TEMP 36.2; O2SAT 96; BMI 30.3
[2020-01-04] VITALS (15 sets, daily range): BP systolic 112–164; BP diastolic 50–71; PULSE 86–101; RESP 16–22; TEMP 36.2–36.6; O2SAT 92–100
--- NOTE | 2020-01-04 05:17 | PM.IMHP ---
H&P: HPI History of Present Illness Chief complaint: Minimal urine out from his catheter Narrative: Date and time of patient contact: 01/04/2020 at 5:30 a.m. Clint Ceron is a 74 year old male with a past medical history of metastatic (bones and lymph nodes) prostate cancer, chronic Plavix therapy, and for episodes of hematuria who presented to the ER with minimal output from his Henry catheter and leakage of urine around his catheter. The patient had cystoscopy with urethral dilatation, clot evacuation and cauterization of bladder neck on 12/14/[address] Lord. He reports that since the procedure he has had bloody urine. He came to the ER when he began having leaking of urine around the catheter and decreased urine output. In the ER they were unable to replace the patient's catheter. The patient reports that he has been passing multiple clots throughout the night. He is also having some bladder spasms was some moderate to severe discomfort. He denies any nausea, vomiting, fever, chills, cough or congestion. He does have bilateral lower extremity swelling. He reports that he had a DVT in his right lower extremity during recent hospitalization at [facility]. He was placed on Eliquis but then subsequently developed hematuria. He had a cystoscopy and clot evacuation performed at [facility] prior to his most recent cystoscopy with Dr. Lord. He reports that he had IVC filter placed during that time interval. Shortly after his right lower extremity had started swelling his left lower extremity. Also started swelling. He has not had a venous Doppler of the left lower extremity. He reports that he has not slept well for years. He only sleeps for short intervals. He takes frequent naps during the day. He reports that he has been having soft stools followed by diarrhea. However he was placed on stool softeners so that he would not strain when having a bowel movement. Review of Systems Review of Systems: Narrative: 12 systems were reviewed with pertinent positives and negatives per HPI. Except as documented in the HPI, all other systems were reviewed and are negative. [facility] Past Medical History Medical History (Updated 01/04/20 @ 08:35 by Audrey Grier DO) Diabetes DVT (deep venous thrombosis) Essential hypertension Gastroesophageal reflux disease Hyperlipidemia Myasthenia gravis Obesity KENISHA (obstructive sleep apnea) Patient denies history of sleep apnea Prostate cancer metastatic disease to the bone at diagnosis in November 2016 Surgical History Surgical History (Updated 01/04/20 @ 08:24 by Audrey Grier DO) History of arthroplasty of right hip January 2018 Presence of IVC filter S/P TURP Cystoscopy with clot evacuation and TURP December [address] Lord Status post cataract extraction of both eyes with insertion of intraocular lens Status post cystoscopy April 2018, 12/14/2019 cystoscopy with urethral dilatation and clot evacuation and Juliano is a ivey of the bladder neck performed by Dr. Lord Family History Family History (Updated 01/04/20 @ 03:45 by Audrey Grier DO) Sibling Malignant neoplasm of prostate Throat cancer Colon cancer Acute myocardial infarction Emphysema of lung Mother Diabetes mellitus Heart disease Social History Social History (Updated 01/04/20 @ 08:27 by Audrey Grier DO) Smoking status: Former smoker Tobacco type: cigarettes Additional smoking assessment comments: He smoked about a pack of cigarettes per day for a couple of years. Alcohol intake: never Substance use: never Additional living arrangements comments: He lives in [place] with his of 55 years. 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 Gender identity (if verbalized by the patient): Male Spiritual care concerns: No Agree to blood products: Yes Meds Home Medications and
[2020-01-04] MEDS: MORPHINE SULFATE 2 MG/ML INJ IV PUSH (07:43)
[2020-01-04] MEDS: LACTATED RINGERS 1,000 ML 30 ML IV CONT (10:55)
[2020-01-04 10:58] LABS: Add Urine Microscopic? YES; Appearance Urine Turbid (Clear); Bilirubin Urine Negative (Negative); Blood Urine 2+ (Negative); Color Urine Red (Yellow); Glucose Urine UA 1+ mg/dL (Negative); Ketones Urine Negative (Negative); Leukocyte Esterase Ur Negative LEU/UL (Negative); Nitrate Urine Negative (Negative); Protein Urine 2+ mg/dL (Negative); Specific Grav Ur 1.026 (1.001-1.035); Urobilinogen Urine Negative mg/dL (<2.0)
[2020-01-04 10:59] LABS: RBC Urine >75 /hpf (0-2); WBC Urine Unable to determine /hpf
[2020-01-04 11:00] LABS: Bacteria Urine Unable to determine /hpf; Squamous Epithelial Cell Urine Unable to determine /hpf (Few)
--- NOTE | 2020-01-04 11:23 | WPDANESEPPF ---
Anes - Initial Pre Proc Eval Procedure: Operation Date: 01/04/20 15:30 Proposed Procedures p Cystoscopy, Evacuation Bladder Clot, Bilateral Stent Placement - Siddharth Lord MD s Possible Transurethral Resection Prostate - Siddharth Lord MD Date/Time: 01/04/20 11:23 Surgeon: Rajat Melgar MD Pre Op Diagnosis: Minimal urine out from his catheter Patient Data Age: 74 Gender: M Height: 5 ft 11 in Weight: 98.7 kg Last Vital Signs Temp 36.2 C L 01/04/20 06:00 Pulse 87 01/04/20 06:00 Resp 16 01/04/20 06:00 BP 124/65 01/04/20 06:00 Pulse Ox 93 01/04/20 06:00 Allergies Allergy/AdvReac Type Severity Reaction Status Date / Time No Known Allergies Allergy Verified 01/04/20 11:02 Home Medications Medication Instructions Recorded Confirmed Type amlodipine 5 mg PO HS 12/14/19 01/03/20 History atorvastatin 40 mg PO HS 12/14/19 01/03/20 History calcium carbonate [Oysco-500] 500 mg PO BID 12/14/19 01/03/20 History clopidogrel 75 mg PO HS 12/14/19 01/03/20 History esomeprazole magnesium 20 mg PO QPM 12/14/19 01/03/20 History metformin 500 mg PO BID 12/14/19 01/03/20 History metoprolol tartrate 12.5 mg PO BID 12/14/19 01/03/20 History prednisone 5 mg PO DAILY 12/14/19 01/03/20 History pyridostigmine bromide 90 mg PO TID 12/14/19 01/03/20 History sertraline 50 mg PO HS 12/14/19 01/03/20 History abiraterone 1,000 mg PO DAILY 01/03/20 01/03/20 History Laboratory Tests 01/03/20 01/03/20 01/03/20 16:46 16:46 16:46 WBC 5.3 K/mm3 K/mm3 (4.5-10.0) RBC 3.43 M/mm3 L M/mm3 (4.6-6.20) Hgb 9.0 g/dL L g/dL (14.0-18.0) Hct 30.0 % L % (42.0-52.0) MCV 87.5 fl fl (80-100) MCH 26.2 pg pg (26-34) MCHC 30.0 g/dl L g/dl (32-36) RDW 17.9 % H % (11.5-14.5) Plt Count 347 k/mm3 k/mm3 (150-375) MPV 10.5 fl H fl (7.4-10.4) Immature Gran % (Auto) 1.3 % H % (0-0.5) Neut % (Auto) 70.7 % % (45.5-73.1) Lymph % (Auto) 20.4 % % (18.3-44.2) [place] % (Auto) 5.9 % % (2.6-8.5) Eos % (Auto) 1.1 % % (0-4.4) Baso % (Auto) 0.6 % % (0.2-1.2) Lymph # (Auto) 1.07 K/mm3 K/mm3 (0.9-3.2) [place] # (Auto) 0.3 K/mm3 K/mm3 (0.1-0.6) Eos # (Auto) 0.1 K/mm3 K/mm3 (0-0.3) Baso # (Auto) 0.0 K/mm3 K/mm3 (0.0-0.1) Abs Immat Gran (auto) 0.07 K/mm3 H K/mm3 (0.00-0.031) Absolute Neuts (auto) 3.7 K/mm3 K/mm3 (1.3-6.7) Absolute Nucleated RBC 0.0 K/mm3 K/mm3 (0.0-0.012) Nucleated RBC % 0.0 % % (0.0-0.2) PT 12.3 Seconds Seconds (11.1-14.7) INR 0.9 APTT 39.8 SECONDS H SECONDS (22.3-36.8) Sodium 137 mmol/L mmol/L (137-145) Potassium 4.2 mmol/L mmol/L (3.4-5.0) Chloride 107 mmol/L mmol/L (98-107) Carbon Dioxide 24 mmol/L mmol/L (22-30) BUN 11 mg/dL mg/dL (9-20) Creatinine 0.90 mg/dL mg/dL (0.7-1.3) Estim Creat Clear Calc 66 ml/min ml/min Estimated GFR > 60 (59 - ) Glucose 109 mg/dL mg/dL (75-110) Calcium 8.5 mg/dL mg/dL (8.4-10.2) Urine Color Urine Appearance Urine pH Ur Specific Wells Urine Protein Urine Glucose (UA) Urine Ketones Ur Blood (Man) Urine Nitrate Urine Bilirubin Urine Urobilinogen Leukocyte Esterase Rfl Urine RBC Urine WBC Ur Squamous Epith Cells Urine Bacteria 01/04/20 10:43 WBC RBC Hgb Hct MCV MCH MCHC RDW Plt Count MPV Immature Gran % (Auto) Neut % (Auto) Lymph % (Auto) [place] % (Auto) Eos % (Auto) Baso %
--- NOTE | 2020-01-04 11:32 | WPDURCON ---
Assessment and Plan Assessment and plan (1) Prostate cancer: Code(s): C61 - Malignant neoplasm of prostate Status: Acute (2) Hydronephrosis: Code(s): N13.30 - Unspecified hydronephrosis Status: Acute (3) Gross hematuria: Code(s): R31.0 - Gross hematuria Status: Acute Assessment and Plan: Very difficult problem in a man with metastatic prostate carcinoma who is having intermittent episodes of gross hematuria resulting from locally recurrent prostate cancer. New onset bilateral hydronephrosis which may be difficult to manage. I will attempt cystoscopy to see if I can place ureteral stents. If that can't be accomplished, he may need bilateral percutaneous nephrostomy tubes - will be complicated by ongoing anticoagulation. Urology Consult Note HPI Date Seen: 01/04/20 Requesting Physician: Rajat Melgar MD Primary Care Provider: UNKNOWN,DOCTOR Consult Narrative Narrative: Clint Ceron is a 74 year old male Who is very well known to me with a history of metastatic prostate cancer. This was 1st diagnosed in November 2016 when he presented with extensive retroperitoneal and pelvic adenopathy. His biopsy at that time showed [place] grade 5+5=10 in all cores sampled. He was originally treated with ADT plus Casodex. He had a tremendous initial response with marked diminution in the adenopathy. He did well for about a year and a half but then in May 2018 developed signs of local recurrence requiring a channel TURP. By December 2018 he had a bone scan showing new widespread bony metastases. At that time he was switched from Casodex to enzalutamide. At this time he remains on a combination of ADT plus insulin in height. Of significance now is that he he has begun to have recurrence episodes of gross hematuria with clot retention over the past 3 months. He has been [facility] to [facility] and, most recently [facility] and [facility]. Cystoscopy in [place] revealed a fixed bladder neck with evidence of local recurrence. On this occasion, I believe for the 1st time, CT imaging shows bilateral hydronephrosis. His main complaint, however, is of gross hematuria with intermittent clot retention. During a recent admission he was also found to have bilateral DVT and remains on a combination of Eliquis and Plavix. Review of Systems Cardiovascular: Cardiovascular: Denies chest pain, Denies lightheadedness, Denies palpitations and Denies dyspnea Respiratory: Respiratory: Denies dyspnea Gastrointestinal: Gastrointestinal: Denies diarrhea, Denies nausea and Denies vomiting Genitourinary: Genitourinary: Reports hematuria, Denies dysuria and Reports urinary hesitancy Endocrine: Endocrine: Denies palpitations PMF Past Medical History Medical History Diabetes DVT (deep venous thrombosis) Essential hypertension Gastroesophageal reflux disease Hyperlipidemia Myasthenia gravis Obesity KENISHA (obstructive sleep apnea) Patient denies history of sleep apnea Prostate cancer metastatic disease to the bone at diagnosis in November 2016 Surgical History Surgical History History of arthroplasty of right hip January 2018 Presence of IVC filter S/P TURP Cystoscopy with clot evacuation and TURP December [address] Lord Status post cataract extraction of both eyes with insertion of intraocular lens Status post cystoscopy April 2018, 12/14/2019 cystoscopy with urethral dilatation and clot evacuation and Juliano is a ivey of the bladder neck performed by Dr. Lord Family History Family History Sibling Malignant neoplasm of prostate Throat cancer Colon cancer Acute myocardial infarction Emphysema of lung Mother Diabetes mellitus Heart disease Social History Social History (Reviewed 01/04/20 @ 1
[2020-01-04] MEDS: ceFAZolin 2 GM/D5W 50 ML 2 GM/50 ML BAG IVPB (12:43)
--- NOTE | 2020-01-04 13:06 | PM.PROC ---
Procedure Note - Detailed Date of procedure: 01/04/20 Pre-op diagnosis: Locally advanced and metastatic prostate cancer Post-op diagnosis: same Procedure performed: 1. Cystoscopy, clot evauation. 2. Cauterization of bladder neck Description of procedure: this patient is brought to the operative suite was prepped and draped in routine sterile fashion while in a dorsal lithotomy position after the uneventful induction of a general anesthetic. Cystoscopy was 1st undertaken with a 19 F rigid scope and then a 24 F resectoscope. He has no urethral strictures but marked regrowth of locally advanced, recurrence prostate carcinoma that is covering the bladder neck and trigone. He is a fairly large clot which I evacuated using a TUMI syringe. I made an exhaustive attempt to identify either ureteral orifice, to no avail. I avoided resection given the fact that he remains on anticoagulation. I did however extensively cauterize the bladder neck with a rollerball electrode. Scopes were removed and I placed a 24 hematuria catheter due to continuous irrigation. I will withhold ongoing Plavix it in the anticipation that he may need replacement of bilateral percutaneous nephrostomy tubes in the near future. If ongoing anticoagulation is indicated I would recommend Lovenox which would allow for placement of these tubes down the road. Anesthesia: GLMA Surgeon: Siddharth Lord MD Estimated blood loss (mL): 10 Drains: Yes (24F hematuria catheter) Packing: No Pathology: yes Complications: No immediate complications Condition: stable Disposition: PACU
--- NOTE | 2020-01-04 13:16 | SUR.PHASEI ---
1305- pt admitted to pacu. cbi running through [address]. pt sedated. breathing unlabored. skin warm, dry and pink. piv patent in rt ac. vss.
[2020-01-04 13:51] LABS: Glucose Point of Care 94 (65-105)
--- NOTE | 2020-01-04 15:41 | PM.IMPN ---
Progress Note: A&P Assessment and Plan (1) Acute retention of urine: Code(s): R33.8 - Other retention of urine Status: Acute Assessment and Plan: Taken to OR today for cysto. Caught extracted better cauterized and CBI started. Could not easily identify the ureteral orifice and will probably need stents at later time Plavix on hold (2) Prostate cancer: Code(s): C61 - Malignant neoplasm of prostate Status: Acute Assessment and Plan: Recurrent and blocking urethra. Was fulgarized and catheter placed. (3) HTN (hypertension): Code(s): I10 - Essential (primary) hypertension Status: Acute Assessment and Plan: Fair control continue the amlodipine (4) Diabetes: Code(s): E11.9 - Type 2 diabetes mellitus without complications Status: Acute Assessment and Plan: Sliding scale hold metformin (5) Hydronephrosis: Code(s): N13.30 - Unspecified hydronephrosis Status: Acute Assessment and Plan: Probable stent at later date if bleeding all stops Subjective Date/time seen: 01/04/20 15:41 Interval history: Date of visit 01/03. 74-year-old white male with indwelling Henry and and prostate carcinoma admitted with difficulty urinating, leaking around Henry and hematuria. Was taken to the OR for cysto today for a large clot was extracted, cautery was applied, and now will receive CBI. History of DVT and Eliquis was held some 2 weeks ago when started having marked hematuria. IVC filter placed last week Exam Narrative: Exam Narrative: Blood pressure 158/64 pulse is 98 respirations 22 per minute sat 96% on 2 L Pupils equal reactive light sclera anicteric Lungs clear CV faint systolic murmur no arrhythmia Abdomen soft nontender no masses Extremities without edema distal pulses are 2+ Neuro alert cooperative no focal deficits Objective Data Vital Signs Vital Signs: Vital Signs - 24 hr 01/03/20 16:08 01/03/20 18:52 01/03/20 20:16 Temperature 36.8 C 37.3 C Pulse Rate 82 75 71 Respiratory Rate 20 17 14 Blood Pressure 117/59 L 136/55 L 130/57 L Pulse Oximetry 98 96 100 01/03/20 21:45 01/04/20 06:00 01/04/20 11:29 Temperature 36.2 C L 36.2 C L 36.2 C L Pulse Rate 75 87 87 Respiratory Rate 20 16 18 Blood Pressure 139/56 L 124/65 133/67 Pulse Oximetry 96 93 93 01/04/20 13:05 01/04/20 13:22 01/04/20 13:43 Temperature 36.4 C Pulse Rate 87 91 94 Respiratory Rate 22 H 20 19 Blood Pressure 112/61 145/71 H 161/64 H Pulse Oximetry 100 100 92 01/04/20 13:57 01/04/20 14:00 01/04/20 14:12 Temperature 36.3 C L 36.4 C Pulse Rate 92 88 101 H Respiratory Rate 20 16 22 H Blood Pressure 164/64 H 139/51 L 160/63 H Pulse Oximetry 96 98 92 01/04/20 14:32 Temperature Pulse Rate 98 Respiratory Rate 22 H Blood Pressure 158/65 H Pulse Oximetry 96 Intake/Output Intake/Output: Intake & Output 01/01/20 01/02/20 01/03/20 01/04/20 23:59 23:59 23:59 23:59 Intake Total 850 Output Total 3100 Balance -2250 Meds/Results Radiology Results: ITS Impressions Abdomen/Pelvis CT 01/03/20 17:28 IMPRESSION: 1. Henry catheter in position. Development of right-sided mild to moderate and progression of left-sided moderate to severe hydronephrosis. 2. Pericystic inflammation, could be acute or chronic cystitis. Bladder is mostly collapsed. 3. Pelvic, retroperitoneal metastatic lymphadenopathy. 4. Osteoblastic disease. 5. Colonic fluid. Fluoroscopy 01/04/20 14:29 IMPRESSION: 1. Fluoroscopy utilized during urologic procedure. See procedure note for further detail. Labs Labs: Laboratory Results - last 24 hr 01/03/20 01/03/20 01/03/20 16:46 16:46 16:46 WBC 5.3 RBC 3.43 L Hgb 9.0 L Hct 30.0 L MCV 87.5 MCH 26.2 MCHC 30.0 L RDW 17.9 H Plt Count 347 MPV 10.5 H Immature Gran % (Auto) 1.3 H Neut % (Auto) 70.7 Lymph % (Auto) 20.4 [place] % (Auto) 5.9 Eos % (
[2020-01-04 18:13] LABS: Glucose Point of Care 217 (65-105)
[2020-01-04] MEDS: METOPROLOL TARTRATE 12.5 MG TABLET PO (21:19)
[2020-01-04] MEDS: AMLODIPINE BESYLATE 5 MG TABLET PO (21:19)
[2020-01-04] MEDS: PYRIDOSTIGMINE BROMIDE 60 MG TABLET PO (21:20)
[2020-01-04] MEDS: ATORVASTATIN 40 MG TABLET PO (21:20)
[2020-01-04] MEDS: PANTOPRAZOLE 40 MG TABLET PO (21:20)
[2020-01-04] MEDS: SERTRALINE HCL 50 MG TABLET PO (21:20)
[2020-01-04 21:25] LABS: Glucose Point of Care 145 (65-105)
[2020-01-05] VITALS (13 sets, daily range): BP systolic 113–149; BP diastolic 40–95; PULSE 74–94; RESP 16–20; TEMP 36.3–37.1; O2SAT 93–99
[2020-01-05 05:00] LABS: Basophils Percent Auto 0.2 % (0.2-1.2); Eosinophils Absolute Auto 0.1 K/mm3 (0-0.3); Eosinophils Percent Auto 0.9 % (0-4.4); Hematocrit 22.9 % (42.0-52.0); Immature Granulocyte Absolute 0.03 K/mm3 (0.00-0.031); Immature Granulocyte Percent A 0.6 % (0-0.5); Lymphocytes Absolute Auto 1.41 K/mm3 (0.9-3.2); Lymphocytes Percent Auto 26.5 % (18.3-44.2); Mean Corpuscular HGB Conc 29.3 g/dl (32-36); Mean Corpuscular Hemoglobin 26.3 pg (26-34); Mean Corpuscular Volume 89.8 fl (80-100); Monocytes Absolute Auto 0.4 K/mm3 (0.1-0.6); Monocytes Percent Auto 6.9 % (2.6-8.5); Neutrophils Absolute Auto 3.5 K/mm3 (1.3-6.7); Neutrophils Percent Auto 64.9 % (45.5-73.1); Platelet Count Result 276 k/mm3 (150-375); Red Blood Count 2.55 M/mm3 (4.6-6.20); Red Cell Distribution Width 17.6 % (11.5-14.5); White Blood Count 5.3 K/mm3 (4.5-10.0)
[2020-01-05 05:11] LABS: Blood Urea Nitrogen 12 mg/dL (9-20); Carbon Dioxide 27 mmol/L (22-30); Chloride 110 mmol/L (98-107); Estimated CRCL calculation 75 ml/min; Estimated Glomerular Filt Rate > 60; Glucose 98 mg/dL (75-110); Potassium 3.9 mmol/L (3.4-5.0); Sodium 138 mmol/L (137-145)
[2020-01-05 05:39] LABS: Hemoglobin 6.7 g/dL (14.0-18.0); Hypochromasia 2+ (NORMAL); Platelet Estimate Adequate (Adequate)
[2020-01-05 05:40] LABS: Microcytosis 1+ (NORMAL)
[2020-01-05] MEDS: PYRIDOSTIGMINE BROMIDE 60 MG TABLET PO ×3 (05:54→21:00)
[2020-01-05] MEDS: SODIUM CHLORIDE 0.9% IV 250 ML 30 ML IV CONT (08:05)
[2020-01-05] MEDS: METOPROLOL TARTRATE 12.5 MG TABLET PO ×2 (08:15→20:47)
[2020-01-05] MEDS: predniSONE 5 MG TABLET PO (08:15)
[2020-01-05 08:17] LABS: Glucose Point of Care 105 (65-105)
[2020-01-05] MEDS: OXYBUTYNIN CHLORIDE 5 MG TABLET PO ×3 (10:07→23:47)
[2020-01-05 11:25] LABS: Glucose Point of Care 147 (65-105)
--- NOTE | 2020-01-05 13:19 | WPDUROPN2 ---
Progress Note: A&P Assessment and Plan (1) Acute retention of urine: Code(s): R33.8 - Other retention of urine Status: Acute Assessment and Plan: Henry catheter in place. Will go home with Henry catheter (2) Gross hematuria: Code(s): R31.0 - Gross hematuria Status: Acute Assessment and Plan: status post cystoscopy yesterday. No clear site of bleeding. He is likely bleeding from local recurrence of his bladder cancer. His urine is very light pink on a very slow CBI without clots. Anticoagulation is on hold. (3) Prostate cancer: Code(s): C61 - Malignant neoplasm of prostate Status: Acute Assessment and Plan: Locally advanced (4) Hydronephrosis: Code(s): N13.30 - Unspecified hydronephrosis Status: Acute Assessment and Plan: I reviewed his imaging. He has bilateral hydronephrosis. He has essentially a solitary right kidney as his left kidney is significantly atrophic. Unable to identify ureteral orifices on cystoscopy. Creatinine right now is stable and normal. If creatinine becomes elevated would need a right-sided nephrostomy tube. Subjective Subjective Date/Time Seen: 01/05/20 13:19 Urine is light pink on a very slow CBI. I irrigated his bladder and got no clots. Having some bladder spasms. Will start as needed oxybut Exam Const: General: no acute distress Resp: Effort & Inspection: normal respiratory effort Urinary Catheter: Urinary Catheter: patent and draining and urine pink Extrem: General: normal to inspection Psych: Affect: normal affect Objective Data Vital Signs Vital Signs: Vital Signs - 24 hr 01/04/20 13:22 01/04/20 13:43 01/04/20 13:57 Temperature 97.4 F L Pulse Rate 91 94 92 Respiratory Rate 20 19 20 Blood Pressure 145/71 H 161/64 H 164/64 H Pulse Oximetry 100 92 96 01/04/20 14:00 01/04/20 14:12 01/04/20 14:32 Temperature 97.6 F Pulse Rate 88 101 H 98 Respiratory Rate 16 22 H 22 H Blood Pressure 139/51 L 160/63 H 158/65 H Pulse Oximetry 98 92 96 01/04/20 14:55 01/04/20 15:10 01/04/20 15:25 Temperature 97.6 F 97.5 F L 97.2 F L Pulse Rate 88 90 87 Respiratory Rate 16 16 18 Blood Pressure 139/51 L 129/56 L 140/51 L Pulse Oximetry 98 99 98 01/04/20 15:55 01/04/20 20:00 01/04/20 21:19 Temperature 97.4 F L 97.8 F Pulse Rate 86 89 88 Respiratory Rate 18 20 Blood Pressure 132/50 L 124/52 L Pulse Oximetry 98 98 01/05/20 00:00 01/05/20 04:00 01/05/20 08:05 Temperature 98.2 F 97.3 F L 97.7 F Pulse Rate 77 76 76 Respiratory Rate 20 20 20 Blood Pressure 136/53 L 121/66 128/50 L Pulse Oximetry 98 96 99 01/05/20 08:20 01/05/20 09:20 01/05/20 10:20 Temperature 98.4 F 97.6 F 97.7 F Pulse Rate 82 78 74 Respiratory Rate 18 18 18 Blood Pressure 149/44 H 140/40 L 121/45 L Pulse Oximetry 97 97 99 01/05/20 10:32 01/05/20 11:20 01/05/20 11:25 Temperature 97.7 F 98.8 F 98.8 F Pulse Rate 94 76 76 Respiratory Rate 20 18 18 Blood Pressure 113/95 H 145/57 H 145/57 H Pulse Oximetry 94 98 98 Intake/Output Intake/Output: Intake & Output 01/02/20 01/03/20 01/04/20 01/05/20 23:59 23:59 23:59 23:59 Intake Total 1090 1354 Output Total 4440 1650 Balance -3350 -296 Meds/Results Medications: Active Medications Generic Name Dose Route Start Last Admin Trade Name Freq PRN Reason Stop Dose Admin Acetaminophen 650 mg 01/04/20 15:50 Tylenol Tablet PO Q6H PRN Mild Pain (1-3) or Fever Amlodipine Besylate 5 mg 01/04/20 21:00 01/04/20 21:19 Norvasc PO 5 mg HS LUCIANO Administration Atorvastatin Calcium 40 mg 01/04/20 21:00 01/04/20 21:20 Lipitor PO 40 mg HS LUCIANO Administration Dextrose 12.5 gm 01/04/20 17:07 Dextrose 50% Syringe IV PUSH PRN PRN Hypoglycemia Protocol Glucagon 1 mg 01/04/20 17:07 Glucagon For Inj IM PRN PRN Hypoglycemia Protocol Glucose 15 gm 01/04/20 17:07 Glutose
[2020-01-05 13:25] LABS: Hemoglobin 7.8 g/dL (14.0-18.0)
--- NOTE | 2020-01-05 14:42 | PM.IMPN ---
Progress Note: A&P Assessment and Plan (1) Acute retention of urine: Code(s): R33.8 - Other retention of urine Status: Acute Assessment and Plan: Taken to OR 01/03 for cysto. cauterized and CBI started. Could not easily identify the ureteral orifice and will possibly need stents at later time Plavix on hold (2) Prostate cancer: Code(s): C61 - Malignant neoplasm of prostate Status: Acute Assessment and Plan: Recurrent and blocking urethra. Was opened and new catheter placed. (3) HTN (hypertension): Code(s): I10 - Essential (primary) hypertension Status: Acute Assessment and Plan: Fair control continue the amlodipine (4) Diabetes: Code(s): E11.9 - Type 2 diabetes mellitus without complications Status: Acute Assessment and Plan: Sliding scale hold metformin (5) Hydronephrosis: Code(s): N13.30 - Unspecified hydronephrosis Status: Acute Assessment and Plan: Probable stent at later date if bleeding all stops or nephrostomy tube. creatinine stable at 0.9 (6) Anemia: Code(s): D64.9 - Anemia, unspecified Status: Acute Assessment and Plan: Chronic disease and partial acute blood loss anemia. Hemoglobin decreased to 6.7 and transfuse 1 unit of packed cells today. Continue serial monitoring Subjective Date/time seen: 01/05/20 14:42 Interval history: Date of visit 01/04. 74-year-old white male with indwelling Henry and and prostate carcinoma admitted with difficulty urinating, leaking around Henry and hematuria. Was taken to the OR for cysto 01/03 and a large clot was extracted, cautery was applied, and now receiving CBI. History of DVT and Eliquis was held some 2 weeks ago when started having marked hematuria. IVC filter placed last week Exam Narrative: Exam Narrative: Blood pressure 130/50 pulse is 76 respirations 22 per minute sat 96% on 2 L Pupils equal reactive light sclera anicteric Lungs clear CV faint systolic murmur no arrhythmia Abdomen soft nontender no masses Extremities without edema distal pulses are 2+ Neuro alert cooperative no focal deficits Objective Data Vital Signs Vital Signs: Vital Signs - 24 hr 01/04/20 14:55 01/04/20 15:10 01/04/20 15:25 Temperature 36.4 C 36.4 C L 36.2 C L Pulse Rate 88 90 87 Respiratory Rate 16 16 18 Blood Pressure 139/51 L 129/56 L 140/51 L Pulse Oximetry 98 99 98 01/04/20 15:55 01/04/20 20:00 01/04/20 21:19 Temperature 36.3 C L 36.6 C Pulse Rate 86 89 88 Respiratory Rate 18 20 Blood Pressure 132/50 L 124/52 L Pulse Oximetry 98 98 01/05/20 00:00 01/05/20 04:00 01/05/20 08:05 Temperature 36.8 C 36.3 C L 36.5 C Pulse Rate 77 76 76 Respiratory Rate 20 20 20 Blood Pressure 136/53 L 121/66 128/50 L Pulse Oximetry 98 96 99 01/05/20 08:20 01/05/20 09:20 01/05/20 10:20 Temperature 36.9 C 36.4 C 36.5 C Pulse Rate 82 78 74 Respiratory Rate 18 18 18 Blood Pressure 149/44 H 140/40 L 121/45 L Pulse Oximetry 97 97 99 01/05/20 10:32 01/05/20 11:20 01/05/20 11:25 Temperature 36.5 C 37.1 C 37.1 C Pulse Rate 94 76 76 Respiratory Rate 20 18 18 Blood Pressure 113/95 H 145/57 H 145/57 H Pulse Oximetry 94 98 98 01/05/20 13:48 Temperature 36.3 C L Pulse Rate 77 Respiratory Rate 18 Blood Pressure 131/49 L Pulse Oximetry 96 Intake/Output Intake/Output: Intake & Output 01/02/20 01/03/20 01/04/20 01/05/20 23:59 23:59 23:59 23:59 Intake Total 1090 1354 Output Total 4420 1650 Balance -0666 -296 Meds/Results Medications: Active Medications Generic Name Dose Route Start Last Admin Trade Name Freq PRN Reason Stop Dose Admin Acetaminophen 650 mg 01/04/20 15:50 Tylenol Tablet PO Q6H PRN Mild Pain (1-3) or Fever Amlodipine Besylate 5 mg 01/04/20 21:00 01/04/20 21:19 Norvasc PO 5 mg HS LUCIANO Administration Atorvastatin Calcium 40 mg 01/04/20 21:00 01/04/20 21:20 Lipitor PO 40 mg HS LUCIANO
[2020-01-05 16:25] LABS: Glucose Point of Care 132 (65-105)
[2020-01-05] MEDS: ONDANSETRON INJ 4 MG/2 ML VIAL IV PUSH ×2 (17:47→23:54)
--- NOTE | 2020-01-05 18:20 | WPDANESPN ---
Anes - Prog Note Post-Op Date/Time: 01/05/20 18:20 Cardiovascular status: normal Respiratory status: normal Airway patency: baseline Mental status: baseline Post-Op hydration status: normal Vital Signs: Last Vital Signs Temp 36.4 C L 01/05/20 18:06 Pulse 78 01/05/20 18:06 Resp 16 01/05/20 18:06 BP 122/48 L 01/05/20 18:06 Pulse Ox 93 01/05/20 18:06 I/O: Intake & Output 01/05/20 01/05/20 01/05/20 07:59 15:59 23:59 Intake Total 300 1054 540 Output Total 1650 450 Balance -1350 1054 90 Laboratory Tests 01/05/20 13:19 01/05/20 04:42 01/04/20 01/05/20 01/05/20 21:18 04:42 04:42 WBC 5.3 RBC 2.55 L Hgb 6.7 L* Hct 22.9 L MCV 89.8 MCH 26.3 MCHC 29.3 L RDW 17.6 H Plt Count 276 MPV 10.0 Immature Gran % (Auto) 0.6 H Neut % (Auto) 64.9 Lymph % (Auto) 26.5 Johnston % (Auto) 6.9 Eos % (Auto) 0.9 Baso % (Auto) 0.2 Lymph # (Auto) 1.41 Johnston # (Auto) 0.4 Eos # (Auto) 0.1 Baso # (Auto) 0.0 Abs Immat Gran (auto) 0.03 Absolute Neuts (auto) 3.5 Absolute Nucleated RBC 0.0 Nucleated RBC % 0.0 Platelet Estimate Adequate Hypochromasia 2+ Microcytosis 1+ Sodium 138 Potassium 3.9 Chloride 110 H Carbon Dioxide 27 BUN 12 Creatinine 0.90 Estim Creat Clear Calc 75 Estimated GFR > 60 Glucose 98 POC Capillary Glucose 145 H Calcium 7.0 L Blood Type Antibody Screen Crossmatch 01/05/20 01/05/20 01/05/20 05:52 08:09 11:16 WBC RBC Hgb Hct MCV MCH MCHC RDW Plt Count MPV Immature Gran % (Auto) Neut % (Auto) Lymph % (Auto) Johnston % (Auto) Eos % (Auto) Baso % (Auto) Lymph # (Auto) Johnston # (Auto) Eos # (Auto) Baso # (Auto) Abs Immat Gran (auto) Absolute Neuts (auto) Absolute Nucleated RBC Nucleated RBC % Platelet Estimate Hypochromasia Microcytosis Sodium Potassium Chloride Carbon Dioxide BUN Creatinine Estim Creat Clear Calc Estimated GFR Glucose POC Capillary Glucose 105 147 H Calcium Blood Type A Positive Antibody Screen Negative Crossmatch See Detail 01/05/20 01/05/20 13:19 16:20 WBC RBC Hgb 7.8 L Hct 26.0 L MCV MCH MCHC RDW Plt Count MPV Immature Gran % (Auto) Neut % (Auto) Lymph % (Auto) Johnston % (Auto) Eos % (Auto) Baso % (Auto) Lymph # (Auto) Johnston # (Auto) Eos # (Auto) Baso # (Auto) Abs Immat Gran (auto) Absolute Neuts (auto) Absolute Nucleated RBC Nucleated RBC % Platelet Estimate Hypochromasia Microcytosis Sodium Potassium Chloride Carbon Dioxide BUN Creatinine Estim Creat Clear Calc Estimated GFR Glucose POC Capillary Glucose 132 H Calcium Blood Type Antibody Screen Crossmatch Post-procedural complaints: none Patient Feedback: Patient satisfied with anesthetic care.
[2020-01-05] MEDS: AMLODIPINE BESYLATE 5 MG TABLET PO (20:46)
[2020-01-05] MEDS: SERTRALINE HCL 50 MG TABLET PO (20:47)
[2020-01-05] MEDS: ATORVASTATIN 40 MG TABLET PO (20:47)
[2020-01-05] MEDS: PANTOPRAZOLE 40 MG TABLET PO (20:47)
[2020-01-05 20:56] LABS: Glucose Point of Care 123 (65-105)
[2020-01-06 06:00] VITALS: BP 144/52; PULSE 94; RESP 20; TEMP 38.6; O2SAT 97
[2020-01-06 06:32] VITALS: TEMP 38.6
[2020-01-06] MEDS: PYRIDOSTIGMINE BROMIDE 60 MG TABLET PO ×3 (06:32→21:05)
[2020-01-06] MEDS: ACETAMINOPHEN 325 MG TABLET 650 MG PO (06:32)
[2020-01-06 07:49] LABS: Basophils Percent Auto 0.4 % (0.2-1.2); Eosinophils Absolute Auto 0.1 K/mm3 (0-0.3); Hematocrit 25.3 % (42.0-52.0); Hemoglobin 7.6 g/dL (14.0-18.0); Immature Granulocyte Absolute 0.04 K/mm3 (0.00-0.031); Immature Granulocyte Percent A 0.8 % (0-0.5); Lymphocytes Absolute Auto 1.41 K/mm3 (0.9-3.2); Mean Corpuscular Volume 89.7 fl (80-100); Mean Platelet Volume 10.5 fl (7.4-10.4); Monocytes Absolute Auto 0.3 K/mm3 (0.1-0.6); Monocytes Percent Auto 5.2 % (2.6-8.5); Neutrophils Absolute Auto 3.3 K/mm3 (1.3-6.7); Neutrophils Percent Auto 64.6 % (45.5-73.1); Platelet Count Result 266 k/mm3 (150-375); Red Blood Count 2.82 M/mm3 (4.6-6.20); Red Cell Distribution Width 16.9 % (11.5-14.5)
[2020-01-06 08:02] LABS: Blood Urea Nitrogen 12 mg/dL (9-20); Calcium 7.4 mg/dL (8.4-10.2); Carbon Dioxide 26 mmol/L (22-30); Chloride 108 mmol/L (98-107); Estimated CRCL calculation 83 ml/min; Estimated Glomerular Filt Rate > 60; Glucose 112 mg/dL (75-110); Potassium 3.8 mmol/L (3.4-5.0); Sodium 136 mmol/L (137-145)
[2020-01-06 08:26] LABS: Glucose Point of Care 114 (65-105)
[2020-01-06] MEDS: predniSONE 5 MG TABLET PO (09:21)
[2020-01-06 09:31] VITALS: PULSE 76
[2020-01-06] MEDS: METOPROLOL TARTRATE 12.5 MG TABLET PO ×2 (09:31→21:05)
--- NOTE | 2020-01-06 10:14 | WPDUROPN2 ---
Progress Note: A&P Assessment and Plan (1) Hydronephrosis: Code(s): N13.30 - Unspecified hydronephrosis Status: Acute Assessment and Plan: Renal function been OK---not able to stent. Will observe (2) Acute retention of urine: Code(s): R33.8 - Other retention of urine Status: Acute (3) Gross hematuria: Code(s): R31.0 - Gross hematuria Status: Acute Assessment and Plan: CBI and cysto yesterday---noted advancing prostate cancer/bladder involvement (4) Prostate cancer: Code(s): C61 - Malignant neoplasm of prostate Status: Acute Assessment and Plan: treated and events noted--local control. no new recs (5) Gross hematuria: Code(s): R31.0 - Gross hematuria Status: Acute Assessment and Plan: Weaning CBI---off Plavix Subjective Subjective Date/Time Seen: 01/06/20 10:14 Has CBI. Events noted. Cysto yesterday and bilateral hydro. Would need right perc if renal failure as UO's not found in bladder. Has progressive prostate cancer. Exam Const: General: cooperative : Male General Exam: Yes normal external exam Penis: Yes normal penis Scrotum: scrotum normal Urinary Catheter: Urinary Catheter: urine clear Objective Data Vital Signs Vital Signs: Vital Signs - 24 hr 01/05/20 10:20 01/05/20 10:32 01/05/20 11:20 Temperature 36.5 C 36.5 C 37.1 C Pulse Rate 74 94 76 Respiratory Rate 18 20 18 Blood Pressure 121/45 L 113/95 H 145/57 H Pulse Oximetry 99 94 98 01/05/20 11:25 01/05/20 13:48 01/05/20 18:06 Temperature 37.1 C 36.3 C L 36.4 C L Pulse Rate 76 77 78 Respiratory Rate 18 18 16 Blood Pressure 145/57 H 131/49 L 122/48 L Pulse Oximetry 98 96 93 01/05/20 20:47 01/05/20 22:00 01/06/20 06:00 Temperature 36.4 C 38.6 C H Pulse Rate 78 89 94 Respiratory Rate 18 20 Blood Pressure 135/49 L 144/52 H Pulse Oximetry 96 97 01/06/20 06:32 01/06/20 09:31 Temperature 38.6 C H Pulse Rate 76 Respiratory Rate Blood Pressure Pulse Oximetry Intake/Output Intake/Output: Intake & Output 01/03/20 01/04/20 01/05/20 01/06/20 23:59 23:59 23:59 23:59 Intake Total 1090 1894 1320 Output Total 4440 2100 1000 Balance -3350 -206 320 Meds/Results Medications: Active Medications Generic Name Dose Route Start Last Admin Trade Name Freq PRN Reason Stop Dose Admin Acetaminophen 650 mg 01/04/20 15:50 01/06/20 06:32 Tylenol Tablet PO 650 mg Q6H PRN Administration Mild Pain (1-3) or Fever Amlodipine Besylate 5 mg 01/04/20 21:00 01/05/20 20:46 Norvasc PO 5 mg HS LUCIANO Administration Atorvastatin Calcium 40 mg 01/04/20 21:00 01/05/20 20:47 Lipitor PO 40 mg HS LUCIANO Administration Dextrose 12.5 gm 01/04/20 17:07 Dextrose 50% Syringe IV PUSH PRN PRN Hypoglycemia Protocol Glucagon 1 mg 01/04/20 17:07 Glucagon For Inj IM PRN PRN Hypoglycemia Protocol Glucose 15 gm 01/04/20 17:07 Glutose 15 PO PRN PRN Hypoglycemia Protocol Dextrose 1,000 mls @ 100 mls/hr 01/04/20 17:07 Dextrose 5% 1,000 Ml IVPB PRN PRN Hypoglycemia Protocol Insulin Aspart 2 - 5 units 01/05/20 08:00 01/06/20 08:11 Novolog SUB-Q Not Given TIDWM LUCIANO Protocol Metoprolol Tartrate 12.5 mg 01/04/20 21:00 01/06/20 09:31 Lopressor PO 12.5 mg Q12HR LUCIANO Administration Ondansetron HCl 4 mg 01/05/20 17:21 01/05/20 23:54 Zofran Inj IV PUSH 4 mg Q6H PRN Administration Nausea And Vomiting Oxybutynin Chloride 5 mg 01/05/20 07:53 01/05/20 23:47 Ditropan PO 5 mg TID PRN Administration bladder spasms Pantoprazole Sodium 40 mg 01/04/20 21:00 01/05/20 20:47 Protonix PO 40 mg HS LUCIANO Administration Prednisone 5 mg 01/05/20 08:00 01/06/20 09:21 Prednisone PO 5 mg DAILY@0800 LUCIANO Administration Pyridostigmine Torrey 60 mg 01/04/20 22:00 01/06/20 06:32
[2020-01-06 12:31] LABS: Glucose Point of Care 117 (65-105)
--- NOTE | 2020-01-06 13:37 | PM.IMPN ---
Progress Note: A&P Assessment and Plan (1) Acute retention of urine: Code(s): R33.8 - Other retention of urine Status: Acute Assessment and Plan: Taken to OR 01/03 for cysto. cauterized and CBI started. Could not easily identify the ureteral orifice and will possibly need stents at later time Plavix on hold. Creatinine stable 0.9 (2) Prostate cancer: Code(s): C61 - Malignant neoplasm of prostate Status: Acute Assessment and Plan: Recurrent and blocking urethra. Was opened and new catheter placed. (3) HTN (hypertension): Code(s): I10 - Essential (primary) hypertension Status: Acute Assessment and Plan: Fair control continue the amlodipine (4) Diabetes: Code(s): E11.9 - Type 2 diabetes mellitus without complications Status: Acute Assessment and Plan: Sliding scale hold metformin (5) Hydronephrosis: Code(s): N13.30 - Unspecified hydronephrosis Status: Acute Assessment and Plan: Probable stent at later date if bleeding all stops or nephrostomy tube. creatinine stable at 0.9 (6) Anemia: Code(s): D64.9 - Anemia, unspecified Status: Acute Assessment and Plan: Chronic disease and partial acute blood loss anemia. Hemoglobin decreased to 7.6 after transfused 1 unit of packed cells 01/04. Continue serial monitoring (7) DVT (deep venous thrombosis): Code(s): I82.409 - Acute embolism and thrombosis of unspecified deep veins of unspecified lower extremity Status: Acute Assessment and Plan: Recent right lower extremity DVT and subsequent I BC filter placed approximately 10 days ago due to hematuria. Off anticoagulation. Venous Doppler of left lower extremity negative on this admission (8) Myasthenia gravis: Code(s): G70.00 - Myasthenia gravis without (acute) exacerbation Status: Acute Assessment and Plan: Continue low-dose prednisone and pyridostigmine Subjective Date/time seen: 01/06/20 13:37 Interval history: Date of visit 01/05. 74-year-old white male with indwelling Henry and and prostate carcinoma admitted with difficulty urinating, leaking around Henry and hematuria. Was taken to the OR for cysto 01/03 and a large clot was extracted, cautery was applied, and now receiving CBI. History of DVT and Eliquis was held some 2 weeks ago when started having marked hematuria. IVC filter placed last week Feels better this am Exam Narrative: Exam Narrative: Blood pressure 144/60 pulse is 76 respirations 20 per minute sat 96% on 2 L, T 38.6 Pupils equal reactive light sclera anicteric Lungs clear CV faint systolic murmur no arrhythmia Abdomen soft nontender no masses Extremities without edema distal pulses are 2+ Neuro alert cooperative no focal deficits Objective Data Vital Signs Vital Signs: Vital Signs - 24 hr 01/05/20 13:48 01/05/20 18:06 01/05/20 20:47 Temperature 36.3 C L 36.4 C L Pulse Rate 77 78 78 Respiratory Rate 18 16 Blood Pressure 131/49 L 122/48 L Pulse Oximetry 96 93 01/05/20 22:00 01/06/20 06:00 01/06/20 06:32 Temperature 36.4 C 38.6 C H 38.6 C H Pulse Rate 89 94 Respiratory Rate 18 20 Blood Pressure 135/49 L 144/52 H Pulse Oximetry 96 97 01/06/20 09:31 Temperature Pulse Rate 76 Respiratory Rate Blood Pressure Pulse Oximetry Intake/Output Intake/Output: Intake & Output 01/03/20 01/04/20 01/05/20 01/06/20 23:59 23:59 23:59 23:59 Intake Total 1090 1894 1320 Output Total 4440 2100 1000 Balance -3350 -206 320 Meds/Results Medications: Active Medications Generic Name Dose Route Start Last Admin Trade Name Freq PRN Reason Stop Dose Admin Acetaminophen 650 mg 01/04/20 15:50 01/06/20 06:32 Tylenol Tablet PO 650 mg Q6H PRN Administration Mild Pain (1-3) or Fever Amlodipine Besylate 5 mg 01/04/20 21:00 01/05/20 20:46 Norvasc PO 5 mg HS LUCIANO Administration Atorvastatin Calc
[2020-01-06 14:00] VITALS: BP 148/58; PULSE 80; RESP 18; TEMP 36.3; O2SAT 91
[2020-01-06 17:46] LABS: Glucose Point of Care 111 (65-105)
[2020-01-06 21:05] VITALS: PULSE 96
[2020-01-06] MEDS: ATORVASTATIN 40 MG TABLET PO (21:05)
[2020-01-06] MEDS: AMLODIPINE BESYLATE 5 MG TABLET PO (21:05)
[2020-01-06] MEDS: PANTOPRAZOLE 40 MG TABLET PO (21:05)
[2020-01-06] MEDS: SERTRALINE HCL 50 MG TABLET PO (21:05)
[2020-01-06 21:22] LABS: Glucose Point of Care 106 (65-105)
[2020-01-06 22:00] VITALS: BP 156/54; PULSE 96; RESP 16; TEMP 36.7; O2SAT 95
[2020-01-07 05:12] LABS: Basophils Percent Auto 0.2 % (0.2-1.2); Eosinophils Percent Auto 0.7 % (0-4.4); Hematocrit 25.6 % (42.0-52.0); Hemoglobin 7.7 g/dL (14.0-18.0); Immature Granulocyte Absolute 0.04 K/mm3 (0.00-0.031); Immature Granulocyte Percent A 0.9 % (0-0.5); Lymphocytes Absolute Auto 1.37 K/mm3 (0.9-3.2); Lymphocytes Percent Auto 31.1 % (18.3-44.2); Mean Corpuscular HGB Conc 30.1 g/dl (32-36); Mean Corpuscular Hemoglobin 26.7 pg (26-34); Mean Corpuscular Volume 88.9 fl (80-100); Mean Platelet Volume 10.2 fl (7.4-10.4); Monocytes Absolute Auto 0.2 K/mm3 (0.1-0.6); Monocytes Percent Auto 5.4 % (2.6-8.5); Neutrophils Absolute Auto 2.7 K/mm3 (1.3-6.7); Neutrophils Percent Auto 61.7 % (45.5-73.1); Platelet Count Result 259 k/mm3 (150-375); Red Blood Count 2.88 M/mm3 (4.6-6.20); Red Cell Distribution Width 17.1 % (11.5-14.5); White Blood Count 4.4 K/mm3 (4.5-10.0)
[2020-01-07 05:26] LABS: Blood Urea Nitrogen 11 mg/dL (9-20); Calcium 7.3 mg/dL (8.4-10.2); Carbon Dioxide 28 mmol/L (22-30); Chloride 109 mmol/L (98-107); Estimated CRCL calculation 83 ml/min; Estimated Glomerular Filt Rate > 60; Glucose 112 mg/dL (75-110); Potassium 3.7 mmol/L (3.4-5.0); Sodium 137 mmol/L (137-145)
[2020-01-07 06:00] VITALS: BP 143/46; PULSE 93; RESP 16; TEMP 37.6; O2SAT 94
[2020-01-07] MEDS: PYRIDOSTIGMINE BROMIDE 60 MG TABLET PO ×3 (06:33→22:12)
[2020-01-07 08:04] LABS: Glucose Point of Care 115 (65-105)
[2020-01-07 09:14] VITALS: PULSE 80
[2020-01-07] MEDS: METOPROLOL TARTRATE 12.5 MG TABLET PO ×2 (09:14→22:12)
[2020-01-07] MEDS: predniSONE 5 MG TABLET PO (09:15)
--- NOTE | 2020-01-07 10:07 | WPDUROPN2 ---
Progress Note: A&P Assessment and Plan (1) Hydronephrosis: Code(s): N13.30 - Unspecified hydronephrosis Status: Acute Assessment and Plan: Renal function been OK---not able to stent. Will observe (2) Acute retention of urine: Code(s): R33.8 - Other retention of urine Status: Acute (3) Gross hematuria: Code(s): R31.0 - Gross hematuria Status: Acute Assessment and Plan: CBI weaning and off Plavix. cysto unable to stent but fulgarated bleeding---noted advancing prostate cancer/bladder involvement (4) Prostate cancer: Code(s): C61 - Malignant neoplasm of prostate Status: Acute Assessment and Plan: treated and events noted--local control. no new recs Subjective Subjective Date/Time Seen: 01/07/20 10:07 Review of Systems Cardiovascular: Cardiovascular: Denies chest pain, Denies lightheadedness, Denies palpitations and Denies dyspnea Respiratory: Respiratory: Denies dyspnea Gastrointestinal: Gastrointestinal: Denies diarrhea, Denies nausea and Denies vomiting Genitourinary: Genitourinary: Reports hematuria, Denies dysuria and Reports urinary hesitancy Endocrine: Endocrine: Denies palpitations Exam Const: General: cooperative and no acute distress Resp: Effort & Inspection: normal respiratory effort : Male General Exam: Yes normal external exam Penis: Yes normal penis Scrotum: scrotum normal Urinary Catheter: Urinary Catheter: urine clear Extrem: General: normal to inspection Psych: Affect: normal affect Objective Data Vital Signs Vital Signs: Vital Signs - 24 hr 01/06/20 14:00 01/06/20 21:05 01/06/20 22:00 Temperature 36.3 C L 36.7 C Pulse Rate 80 96 96 Respiratory Rate 18 16 Blood Pressure 148/58 H 156/54 H Pulse Oximetry 91 95 01/07/20 06:00 01/07/20 09:14 Temperature 37.6 C Pulse Rate 93 80 Respiratory Rate 16 Blood Pressure 143/46 H Pulse Oximetry 94 Intake/Output Intake/Output: Intake & Output 01/04/20 01/05/20 01/06/20 01/07/20 23:59 23:59 23:59 23:59 Intake Total 1090 1894 1910 740 Output Total 4440 2100 2750 1000 Balance -3350 -206 -840 -260 Meds/Results Medications: Active Medications Generic Name Dose Route Start Last Admin Trade Name Freq PRN Reason Stop Dose Admin Acetaminophen 650 mg 01/04/20 15:50 01/06/20 06:32 Tylenol Tablet PO 650 mg Q6H PRN Administration Mild Pain (1-3) or Fever Amlodipine Besylate 5 mg 01/04/20 21:00 01/06/20 21:05 Norvasc PO 5 mg HS LUCIANO Administration Atorvastatin Calcium 40 mg 01/04/20 21:00 01/06/20 21:05 Lipitor PO 40 mg HS LUCIANO Administration Dextrose 12.5 gm 01/04/20 17:07 Dextrose 50% Syringe IV PUSH PRN PRN Hypoglycemia Protocol Glucagon 1 mg 01/04/20 17:07 Glucagon For Inj IM PRN PRN Hypoglycemia Protocol Glucose 15 gm 01/04/20 17:07 Glutose 15 PO PRN PRN Hypoglycemia Protocol Dextrose 1,000 mls @ 100 mls/hr 01/04/20 17:07 Dextrose 5% 1,000 Ml IVPB PRN PRN Hypoglycemia Protocol Insulin Aspart 2 - 5 units 01/05/20 08:00 01/07/20 09:09 Novolog SUB-Q Not Given TIDWM [facility] Protocol Metoprolol Tartrate 12.5 mg 01/04/20 21:00 01/07/20 09:14 Lopressor PO 12.5 mg Q12HR LUCIANO Administration Ondansetron HCl 4 mg 01/05/20 17:21 01/05/20 23:54 Zofran Inj IV PUSH 4 mg Q6H PRN Administration Nausea And Vomiting Oxybutynin Chloride 5 mg 01/05/20 07:53 01/05/20 23:47 Ditropan PO 5 mg TID PRN Administration bladder spasms Pantoprazole Sodium 40 mg 01/04/20 21:00 01/06/20 21:05 Protonix PO 40 mg HS LUCIANO Administration Prednisone 5 mg 01/05/20 08:00 01/07/20 09:15 Prednisone PO 5 mg DAILY@0800 LUCIANO Administration Pyridostigmine Miles 60 mg 01/04/20 22:00 01/07/20 06:33 Mestinon PO 60 mg Q8HR LUCIANO Administration Pyridostigmine Bromid
[2020-01-07 11:57] LABS: Glucose Point of Care 134 (65-105)
--- NOTE | 2020-01-07 13:43 | PM.IMPN ---
Progress Note: A&P Assessment and Plan (1) Acute retention of urine: Code(s): R33.8 - Other retention of urine Status: Acute Assessment and Plan: Taken to OR 01/03 for cysto. cauterized and CBI started. Could not easily identify the ureteral orifice and will possibly need stents at later time Plavix on hold. Creatinine stable 0.8 (2) Prostate cancer: Code(s): C61 - Malignant neoplasm of prostate Status: Acute Assessment and Plan: Recurrent and blocking urethra. Was opened and new catheter placed. (3) HTN (hypertension): Code(s): I10 - Essential (primary) hypertension Status: Acute Assessment and Plan: Fair control continue the amlodipine (4) Diabetes: Code(s): E11.9 - Type 2 diabetes mellitus without complications Status: Acute Assessment and Plan: Sliding scale hold metformin (5) Hydronephrosis: Code(s): N13.30 - Unspecified hydronephrosis Status: Acute Assessment and Plan: Probable stent at later date if bleeding all stops or nephrostomy tube. creatinine stable at 0.8 (6) Anemia: Code(s): D64.9 - Anemia, unspecified Status: Acute Assessment and Plan: Chronic disease and partial acute blood loss anemia. Hemoglobin stable at 7.7 after transfused 1 unit of packed cells 01/04. Continue serial monitoring (7) DVT (deep venous thrombosis): Code(s): I82.409 - Acute embolism and thrombosis of unspecified deep veins of unspecified lower extremity Status: Acute Assessment and Plan: Recent right lower extremity DVT and subsequent IVC filter placed approximately 12 days ago due to hematuria. Off anticoagulation. Venous Doppler of left lower extremity negative on this admission (8) Myasthenia gravis: Code(s): G70.00 - Myasthenia gravis without (acute) exacerbation Status: Acute Assessment and Plan: Continue low-dose prednisone and pyridostigmine Subjective Date/time seen: 01/07/20 13:43 Interval history: Date of visit 01/06. 74-year-old white male with indwelling Henry and and prostate carcinoma admitted with difficulty urinating, leaking around Henry and hematuria. Was taken to the OR for cysto 01/03 and a large clot was extracted, cautery was applied, and now receiving CBI. History of DVT and Eliquis was held some 2 weeks ago when started having marked hematuria. IVC filter placed week before admission Feels better this am but had some diarrheal stools Exam Narrative: Exam Narrative: Blood pressure 144//50 pulse is 86 respirations 20 per minute sat 94% on RA, T max 37.6 Pupils equal reactive light sclera anicteric Lungs clear CV faint systolic murmur no arrhythmia Abdomen soft nontender no masses Extremities without edema distal pulses are 2+ Neuro alert cooperative no focal deficits Objective Data Vital Signs Vital Signs: Vital Signs - 24 hr 01/06/20 14:00 01/06/20 21:05 01/06/20 22:00 Temperature 36.3 C L 36.7 C Pulse Rate 80 96 96 Respiratory Rate 18 16 Blood Pressure 148/58 H 156/54 H Pulse Oximetry 91 95 01/07/20 06:00 01/07/20 09:14 Temperature 37.6 C Pulse Rate 93 80 Respiratory Rate 16 Blood Pressure 143/46 H Pulse Oximetry 94 Intake/Output Intake/Output: Intake & Output 01/04/20 01/05/20 01/06/20 01/07/20 23:59 23:59 23:59 23:59 Intake Total 1090 1894 1910 740 Output Total 4440 2100 2750 1000 [facility] -3350 -206 -840 -260 Meds/Results Medications: Active Medications Generic Name Dose Route Start Last Admin Trade Name Freq PRN Reason Stop Dose Admin Acetaminophen 650 mg 01/04/20 15:50 01/06/20 06:32 Tylenol Tablet PO 650 mg Q6H PRN Administration Mild Pain (1-3) or Fever Amlodipine Besylate 5 mg 01/04/20 21:00 01/06/20 21:05 Norvasc PO 5 mg HS LUCIANO Administration Atorvastatin Calcium 40 mg 01/04/20 21:00 01/06/20 21:05 Lipitor PO 40 mg HS LUCIANO Administration Dextr
[2020-01-07 14:00] VITALS: BP 139/42; PULSE 87; RESP 18; TEMP 37.1; O2SAT 92
[2020-01-07 15:00] VITALS: O2SAT 91
[2020-01-07 16:47] LABS: Glucose Point of Care 146 (65-105)
[2020-01-07 20:00] VITALS: BP 123/48; PULSE 83; RESP 18; TEMP 36.3; O2SAT 91
--- NOTE | 2020-01-07 20:37 | PC.NURSE ---
1944 PRICE LEAKING AT PENIS, IRRIGATED OF MULTIPLE CLOTS. RUNNING AT MODERATE RATE AT PRESENT
--- NOTE | 2020-01-07 20:38 | PC.NURSE ---
2015 CBI RUNNING CLEAR, DECREASED RATE
[2020-01-07 21:17] LABS: Glucose Point of Care 114 (65-105)
[2020-01-07 22:12] VITALS: PULSE 90
[2020-01-07] MEDS: PANTOPRAZOLE 40 MG TABLET PO (22:12)
[2020-01-07] MEDS: ATORVASTATIN 40 MG TABLET PO (22:13)
[2020-01-07] MEDS: AMLODIPINE BESYLATE 5 MG TABLET PO (22:13)
[2020-01-07] MEDS: SERTRALINE HCL 50 MG TABLET PO (22:13)
[2020-01-08] VITALS (10 sets, daily range): BP systolic 100–153; BP diastolic 42–53; PULSE 75–103; RESP 16–20; TEMP 36.2–36.6; O2SAT 85–93
[2020-01-08 04:28] LABS: Glucose Point of Care 108 (65-105)
[2020-01-08 05:37] LABS: Basophils Percent Auto 0.4 % (0.2-1.2); Eosinophils Absolute Auto 0.1 K/mm3 (0-0.3); Eosinophils Percent Auto 1.3 % (0-4.4); Hematocrit 25.8 % (42.0-52.0); Hemoglobin 7.7 g/dL (14.0-18.0); Immature Granulocyte Absolute 0.05 K/mm3 (0.00-0.031); Immature Granulocyte Percent A 1.1 % (0-0.5); Lymphocytes Absolute Auto 1.01 K/mm3 (0.9-3.2); Lymphocytes Percent Auto 22.6 % (18.3-44.2); Mean Corpuscular HGB Conc 29.8 g/dl (32-36); Mean Corpuscular Hemoglobin 26.2 pg (26-34); Mean Corpuscular Volume 87.8 fl (80-100); Mean Platelet Volume 10.2 fl (7.4-10.4); Monocytes Absolute Auto 0.2 K/mm3 (0.1-0.6); Monocytes Percent Auto 3.8 % (2.6-8.5); Neutrophils Absolute Auto 3.2 K/mm3 (1.3-6.7); Neutrophils Percent Auto 70.8 % (45.5-73.1); Platelet Count Result 255 k/mm3 (150-375); Red Blood Count 2.94 M/mm3 (4.6-6.20); Red Cell Distribution Width 16.8 % (11.5-14.5); White Blood Count 4.5 K/mm3 (4.5-10.0)
[2020-01-08 05:47] LABS: Blood Urea Nitrogen 12 mg/dL (9-20); Calcium 7.3 mg/dL (8.4-10.2); Carbon Dioxide 28 mmol/L (22-30); Chloride 108 mmol/L (98-107); Estimated CRCL calculation 83 ml/min; Estimated Glomerular Filt Rate > 60; Glucose 103 mg/dL (75-110); Potassium 3.8 mmol/L (3.4-5.0); Sodium 137 mmol/L (137-145)
[2020-01-08] MEDS: PYRIDOSTIGMINE BROMIDE 60 MG TABLET PO ×3 (06:30→21:01)
[2020-01-08 07:46] LABS: Glucose Point of Care 118 (65-105)
[2020-01-08 07:50] LABS: Hypochromasia 1+ (NORMAL); Ovalocytes 1+ (NORMAL); Platelet Estimate Adequate (Adequate)
[2020-01-08] MEDS: predniSONE 5 MG TABLET PO (08:09)
[2020-01-08] MEDS: METOPROLOL TARTRATE 12.5 MG TABLET PO ×2 (08:09→20:55)
--- NOTE | 2020-01-08 08:10 | WPDUROPN2 ---
Progress Note: A&P Assessment and Plan (1) Gross hematuria: Code(s): R31.0 - Gross hematuria Status: Acute Assessment and Plan: Is resolved. Will hold CBI and cap inflow. Patient will go home with the current Henry catheter. (2) Hydronephrosis: Code(s): N13.30 - Unspecified hydronephrosis Status: Acute Assessment and Plan: Essentially has a right solitary kidney. Renal function is normal. Unable to find ureteral orifice on cystoscopy making stent and possible. Only option would be nephrostomy tube but given the fact his creatinine is normal with his functionally solitary kidney will simply observe for now. (3) Prostate cancer: Code(s): C61 - Malignant neoplasm of prostate Status: Acute Subjective Subjective Date/Time Seen: 01/08/20 08:10 Urine is clear basically with continuous bladder irrigation off. Exam Const: General: no acute distress HENMT: Mouth: Yes moist mucous membranes Eyes: EOM: EOMs intact bilaterally Resp: Effort & Inspection: normal respiratory effort Urinary Catheter: Urinary Catheter: patent and draining and urine clear Psych: Mental Status: mental status grossly normal Objective Data Vital Signs Vital Signs: Vital Signs - 24 hr 01/07/20 09:14 01/07/20 14:00 01/07/20 15:00 Temperature 98.8 F Pulse Rate 80 87 Respiratory Rate 18 Blood Pressure 139/42 L Pulse Oximetry 92 91 01/07/20 20:00 01/07/20 22:12 01/08/20 04:00 Temperature 97.3 F L 98 F Pulse Rate 83 90 75 Respiratory Rate 18 20 Blood Pressure 123/48 L 100/42 L Pulse Oximetry 91 91 Intake/Output Intake/Output: Intake & Output 01/05/20 01/06/20 01/07/20 01/08/20 23:59 23:59 23:59 23:59 Intake Total 1894 1910 1450 Output Total 6397 1730 0690 Balance -206 -280 -3423 Meds/Results Medications: Active Medications Generic Name Dose Route Start Last Admin Trade Name Freq PRN Reason Stop Dose Admin Acetaminophen 650 mg 01/04/20 15:50 01/06/20 06:32 Tylenol Tablet PO 650 mg Q6H PRN Administration Mild Pain (1-3) or Fever Amlodipine Besylate 5 mg 01/04/20 21:00 01/07/20 22:13 Norvasc PO 5 mg HS LUCIANO Administration Atorvastatin Calcium 40 mg 01/04/20 21:00 01/07/20 22:13 Lipitor PO 40 mg HS LUCIANO Administration Dextrose 12.5 gm 01/04/20 17:07 Dextrose 50% Syringe IV PUSH PRN PRN Hypoglycemia Protocol Glucagon 1 mg 01/04/20 17:07 Glucagon For Inj IM PRN PRN Hypoglycemia Protocol Glucose 15 gm 01/04/20 17:07 Glutose 15 PO PRN PRN Hypoglycemia Protocol Dextrose 1,000 mls @ 100 mls/hr 01/04/20 17:07 Dextrose 5% 1,000 Ml IVPB PRN PRN Hypoglycemia Protocol Insulin Aspart 2 - 5 units 01/05/20 08:00 01/08/20 08:04 Novolog SUB-Q Not Given TIDWM [facility] Protocol Metoprolol Tartrate 12.5 mg 01/04/20 21:00 01/07/20 22:12 Lopressor PO 12.5 mg Q12HR LUCIANO Administration Ondansetron HCl 4 mg 01/05/20 17:21 01/05/20 23:54 Zofran Inj IV PUSH 4 mg Q6H PRN Administration Nausea And Vomiting Oxybutynin Chloride 5 mg 01/05/20 07:53 01/05/20 23:47 Ditropan PO 5 mg TID PRN Administration bladder spasms Pantoprazole Sodium 40 mg 01/04/20 21:00 01/07/20 22:12 Protonix PO 40 mg HS LUCIANO Administration Prednisone 5 mg 01/05/20 08:00 01/07/20 09:15 Prednisone PO 5 mg DAILY@0800 LUCIANO Administration Pyridostigmine Shafer 60 mg 01/04/20 22:00 01/08/20 06:30 Mestinon PO 60 mg Q8HR LUCIANO Administration Pyridostigmine Shafer 30 mg 01/04/20 22:00 01/08/20 06:30 Mestinon PO 30 mg Q8HR LUCIANO Administration Sertraline HCl 50 mg 01/04/20 21:00 01/07/20 22:13 Zoloft PO 50 mg HS LUCIANO Administration Radiology Results: ITS Impressions Abdomen/Pelvis CT 01/03/20 17:28 IMPRESSION: 1. Henry catheter in position. Development of right-sided mi
--- NOTE | 2020-01-08 11:41 | PM.IMPN ---
Progress Note: A&P Assessment and Plan (1) Acute retention of urine: Code(s): R33.8 - Other retention of urine Status: Acute Assessment and Plan: Taken to OR 01/03 for cysto. cauterized and CBI stopped today as urine has cleared Plavix on hold. Creatinine stable 0.8 Since creatinine stable urologist not going to persue stent or nephrostomy tube (2) Prostate cancer: Code(s): C61 - Malignant neoplasm of prostate Status: Acute Assessment and Plan: Recurrent and blocking urethra. Was opened and new catheter placed. (3) HTN (hypertension): Code(s): I10 - Essential (primary) hypertension Status: Acute Assessment and Plan: Fair control continue the amlodipine, continue (4) Diabetes: Code(s): E11.9 - Type 2 diabetes mellitus without complications Status: Acute Assessment and Plan: Sliding scale here and will restart metformin on discharge (5) Hydronephrosis: Code(s): N13.30 - Unspecified hydronephrosis Status: Acute Assessment and Plan: creatinine stable at 0.8 and blocked ureter probable nonfunctioning kidney so no stent or nephrostomy tube planned (6) Anemia: Code(s): D64.9 - Anemia, unspecified Status: Acute Assessment and Plan: Chronic disease and partial acute blood loss anemia. Hemoglobin stable at 7.7 after transfused 1 unit of packed cells 01/04. (7) DVT (deep venous thrombosis): Code(s): I82.409 - Acute embolism and thrombosis of unspecified deep veins of unspecified lower extremity Status: Acute Assessment and Plan: Recent right lower extremity DVT and subsequent IVC filter placed approximately 13 days ago due to hematuria. Off anticoagulation. Venous Doppler of left lower extremity negative on this admission 02 sat borderline low, will get cxr and cta chest since recent dvt even though filter present (8) Myasthenia gravis: Code(s): G70.00 - Myasthenia gravis without (acute) exacerbation Status: Acute Assessment and Plan: Continue low-dose prednisone and pyridostigmine Subjective Date/time seen: 01/08/20 11:41 Interval history: Date of visit 01/07. 74-year-old white male with indwelling Henry and and prostate carcinoma admitted with difficulty urinating, leaking around Henry and hematuria. Was taken to the OR for cysto 01/03 and a large clot was extracted, cautery was applied, and receiving CBI until today.. History of DVT and Eliquis was held some 2 weeks ago when started having marked hematuria. IVC filter placed week before admission Feels better this and urology has released Exam Narrative: Exam Narrative: Blood pressure 110/52pulse is 84 respirations 20 per minute sat 93% on 2L Pupils equal reactive light sclera anicteric Lungs clear CV faint systolic murmur no arrhythmia Abdomen soft nontender no masses Extremities trace edema distal pulses are 2+ Neuro alert cooperative no focal deficits Objective Data Vital Signs Vital Signs: Vital Signs - 24 hr 01/07/20 14:00 01/07/20 15:00 01/07/20 20:00 Temperature 37.1 C 36.3 C L Pulse Rate 87 83 Respiratory Rate 18 18 Blood Pressure 139/42 L 123/48 L Pulse Oximetry 92 91 91 01/07/20 22:12 01/08/20 04:00 01/08/20 08:09 Temperature 36.6 C Pulse Rate 90 75 92 Respiratory Rate 20 Blood Pressure 100/42 L Pulse Oximetry 91 01/08/20 09:07 Temperature Pulse Rate Respiratory Rate Blood Pressure Pulse Oximetry 93 Intake/Output Intake/Output: Intake & Output 01/05/20 01/06/20 01/07/20 01/08/20 23:59 23:59 23:59 23:59 Intake Total 1894 1910 1450 240 Output Total 2100 2750 3200 Balance -206 840 -3120 240 Meds/Results Medications: Active Medications Generic Name Dose Route Start Last Admin Trade Name Freq PRN Reason Stop Dose Admin Acetaminophen 650 mg 01/04/20 15:50 01/06/20 06:32 Tylenol Tablet PO 650 mg Q6H PRN Administration Mild Pa
[2020-01-08 12:14] LABS: Glucose Point of Care 147 (65-105)
[2020-01-08 16:34] LABS: Glucose Point of Care 137 (65-105)
[2020-01-08] MEDS: ONDANSETRON INJ 4 MG/2 ML VIAL IV PUSH (18:39)
[2020-01-08] MEDS: AMLODIPINE BESYLATE 5 MG TABLET PO (20:54)
[2020-01-08] MEDS: PANTOPRAZOLE 40 MG TABLET PO (20:54)
[2020-01-08] MEDS: ATORVASTATIN 40 MG TABLET PO (20:54)
[2020-01-08] MEDS: SERTRALINE HCL 50 MG TABLET PO (20:54)
[2020-01-08 23:43] LABS: Glucose Point of Care 122 (65-105)
[2020-01-09] VITALS (17 sets, daily range): BP systolic 84–143; BP diastolic 49–55; PULSE 70–100; RESP 14–31; TEMP 36.3–37.7; O2SAT 80–100
[2020-01-09 05:10] LABS: Alveolar/Arterial O2 Gradient 595.5 mmHg; Base Excess ABG -0.4 mEq/l (+/-2.0); Fractional Inspired Oxygen 100 %; HCO3 ABG 24.9 mEq/l (22.0-26.0); Oxygen Saturation ABG 94.4 % (95.0-100.0); Oxyhemoglobin 92.9 % THb (90.0-100.0); PCO2 ABG 43.9 mmHg (35.0-45.0); PO2 ABG 73.6 mmHg (80.0-100.0); PO2 FiO2 Ratio Arterial Blood 0.74 %; Total Hemoglobin 9.1 g/dL (12.0-18.0); pH ABG 7.372 (7.350-7.450)
[2020-01-09 05:11] LABS: Device NON-REBREATHER MASK; Site Drawn RIGHT BRACHIAL
--- NOTE | 2020-01-09 05:29 | PM.EVENT ---
Event Note Event Note Event Note: Called to bedside to evaluate this 74 year old male w/ MG who is being treated for urinary retention who tonight was foudn to be desaturating down to the 80s. On my arrival to bedside the patient is on a nonrebreather and saturating 100%. He denies any significant shortness of breath. CXR was obtained which demonstrated dense bilateral pulmonary edema. The patient is not on any IV fluids at this time. The patient has an Echocardiogram pending. We will treat the patient with Lasix 40 mg IV once and titrate his oxygen back to NC when possible. The patient had a CTA chest done yesterday which did demonstrate groundglass opacities. Radiology called and states that CXR appears to have worsening opacities. The patient has been placed on contact isolation. We will check the patient for novel COVID-19 virus. I will continue to monitor closely.
[2020-01-09] MEDS: PYRIDOSTIGMINE BROMIDE 60 MG TABLET PO ×3 (06:11→22:13)
[2020-01-09 06:21] LABS: Basophils Percent Auto 0.4 % (0.2-1.2); Eosinophils Percent Auto 0.7 % (0-4.4); Hematocrit 27.2 % (42.0-52.0); Hemoglobin 8.4 g/dL (14.0-18.0); Immature Granulocyte Absolute 0.04 K/mm3 (0.00-0.031); Immature Granulocyte Percent A 0.7 % (0-0.5); Lymphocytes Absolute Auto 0.91 K/mm3 (0.9-3.2); Lymphocytes Percent Auto 16.9 % (18.3-44.2); Mean Corpuscular HGB Conc 30.9 g/dl (32-36); Mean Corpuscular Hemoglobin 26.7 pg (26-34); Mean Corpuscular Volume 86.3 fl (80-100); Mean Platelet Volume 10.6 fl (7.4-10.4); Monocytes Absolute Auto 0.1 K/mm3 (0.1-0.6); Monocytes Percent Auto 2.4 % (2.6-8.5); Neutrophils Absolute Auto 4.2 K/mm3 (1.3-6.7); Neutrophils Percent Auto 78.9 % (45.5-73.1); Nucleated Red Blood Cells Perc 0.4 % (0.0-0.2); Platelet Count Result 282 k/mm3 (150-375); Red Blood Count 3.15 M/mm3 (4.6-6.20); Red Cell Distribution Width 16.7 % (11.5-14.5); White Blood Count 5.4 K/mm3 (4.5-10.0)
[2020-01-09 06:31] LABS: Blood Urea Nitrogen 13 mg/dL (9-20); Calcium 7.4 mg/dL (8.4-10.2); Carbon Dioxide 28 mmol/L (22-30); Chloride 107 mmol/L (98-107); Estimated CRCL calculation 94 ml/min; Estimated Glomerular Filt Rate > 60; Glucose 126 mg/dL (75-110); Potassium 3.7 mmol/L (3.4-5.0); Sodium 136 mmol/L (137-145)
[2020-01-09] MEDS: FUROSEMIDE INJ 40 MG/4 ML VIAL IV PUSH (06:32)
[2020-01-09 06:42] LABS: NT Pro B Type Natriuretic Pept 617 PG/ML (5-100)
--- NOTE | 2020-01-09 07:04 | WPDUROPN2 ---
Progress Note: A&P Assessment and Plan (1) Hydronephrosis: Code(s): N13.30 - Unspecified hydronephrosis Status: Acute (2) Prostate cancer: Code(s): C61 - Malignant neoplasm of prostate Status: Acute (3) Gross hematuria: Code(s): R31.0 - Gross hematuria Status: Acute Assessment and Plan: No plans for any intervention at this time. Plan to leave indwelling catheter (the one currently in place) x 2-3 weeks as means to help control hematuria. I would favor NOT resuming anticoagulation unless hospitalists feel strongly, otherwise. No plans for perc. nephrostomy placement unless renal function regresses significantly. Subjective Subjective Date/Time Seen: 01/09/20 07:04 Respiratory distress / oxygen desaturation overnight. Possible Covid-19 infection on CXR. Review of Systems Review of Systems: ROS unobtainable: Yes unobtainable due to medical condition Exam Const: General: no acute distress Resp: Effort & Inspection: normal respiratory effort GI: Inspection: non-distended GI Palp: No abdominal tenderness and No Guarding due to palpation present (GI) Auscultation: normal bowel sounds Objective Data Vital Signs Vital Signs: Vital Signs - 24 hr 01/08/20 08:09 01/08/20 09:07 01/08/20 11:53 Temperature 97.3 F L Pulse Rate 92 85 Respiratory Rate 16 Blood Pressure 131/50 L Pulse Oximetry 93 85 L 01/08/20 12:12 01/08/20 13:53 01/08/20 14:20 Temperature 97.9 F Pulse Rate 87 Respiratory Rate 20 Blood Pressure 134/53 L Pulse Oximetry 91 88 L 92 01/08/20 20:55 01/08/20 21:40 01/08/20 22:00 Temperature 97.2 F L Pulse Rate 103 H 103 H Respiratory Rate 18 Blood Pressure 153/53 H Pulse Oximetry 92 90 01/09/20 05:48 Temperature 97.4 F L Pulse Rate 100 Respiratory Rate 22 H Blood Pressure 143/55 H Pulse Oximetry 87 L Intake/Output Intake/Output: Intake & Output 01/06/20 01/07/20 01/08/20 01/09/20 23:59 23:59 23:59 23:59 Intake Total 1910 1450 510 300 Output Total 2750 3200 1125 400 Balance -840 -1750 -615 -100 Meds/Results Medications: Active Medications Generic Name Dose Route Start Last Admin Trade Name Freq PRN Reason Stop Dose Admin Acetaminophen 650 mg 01/04/20 15:50 01/06/20 06:32 Tylenol Tablet PO 650 mg Q6H PRN Administration Mild Pain (1-3) or Fever Amlodipine Besylate 5 mg 01/04/20 21:00 01/08/20 20:54 Norvasc PO 5 mg HS LUCIANO Administration Atorvastatin Calcium 40 mg 01/04/20 21:00 01/08/20 20:54 Lipitor PO 40 mg HS LUCIANO Administration Dextrose 12.5 gm 01/04/20 17:07 Dextrose 50% Syringe IV PUSH PRN PRN Hypoglycemia Protocol Glucagon 1 mg 01/04/20 17:07 Glucagon For Inj IM PRN PRN Hypoglycemia Protocol Glucose 15 gm 01/04/20 17:07 Glutose 15 PO PRN PRN Hypoglycemia Protocol Dextrose 1,000 mls @ 100 mls/hr 01/04/20 17:07 Dextrose 5% 1,000 Ml IVPB PRN PRN Hypoglycemia Protocol Insulin Aspart 2 - 5 units 01/05/20 08:00 01/08/20 16:22 Novolog SUB-Q Not Given TIDWM [facility] Protocol Metoprolol Tartrate 12.5 mg 01/04/20 21:00 01/08/20 20:55 Lopressor PO 12.5 mg Q12HR LUCIANO Administration Ondansetron HCl 4 mg 01/05/20 17:21 01/08/20 18:39 Zofran Inj IV PUSH 4 mg Q6H PRN Administration Nausea And Vomiting Oxybutynin Chloride 5 mg 01/05/20 07:53 01/05/20 23:47 Ditropan PO 5 mg TID PRN Administration bladder spasms Pantoprazole Sodium 40 mg 01/04/20 21:00 01/08/20 20:54 Protonix PO 40 mg HS LUCIANO Administration Prednisone 5 mg 01/05/20 08:00 01/08/20 08:09 Prednisone PO 5 mg DAILY@0800 LUCIANO Administration Pyridostigmine [place] 60 mg 01/04/20 22:00 01/09/20 06:11 Mestinon PO 60 mg Q8HR LUCIANO Administration Pyridostigmine [place] 30 mg 01/04/20 22:00 01/09/20 06:12 Mestinon PO 3
--- NOTE | 2020-01-09 07:42 | PC.NURSE ---
Pt oxygen saturation 80% during morning rounds (aprox 0430). At patient bedside coaching with breathing techniques failed to improve saturation and multiple fingers yielded the same results. RT was paged and I was directed by Bekah to titrate up until she arrived. Titration up to 5L only improved patient to 84-87%. Dr Xie was called at this time and was informed of the patients status, he instructed to place patient on a venturi mask if saturations did not rise further and input orders for a Chest Xray and ABGs. After several minutes on 5L patient was not improving, at this time Chain Mender entered situation and assisted with venturi placement with 15L. Saturations began to rise to a stable 96%. Dr Xie entered the scene and informed myself and day care supervisor of Chest Xray results and ordered 40mg Lasix to be given. Lasix administered at 0516 (scanned at 0632 due to delay in pharmacy verification), Patient was stable at 91-96% at this time and did not have stated no shortness of breath. Post stabilization: Dr. Lopez with radiology called to gather history of patient and to inform me of his opinion of the Chest Xray taken. At this time I was informed that he believed the results reflected a possible worsening Covid infection rather than pulmonary edema and recommended activating precautions for possible Covid infection. Dr Xie was consulted with information provided by Dr Lopez and ordered Covid swab and appropriate precautions.
--- NOTE | 2020-01-09 07:59 | PC.NURSE ---
Patient sating 96% on 15L nonrebreather. Decreased oxygen to 8L nonrebreather and called to respiratory, sats resting at 90-91%. Respiratory currently at bedside and switched oxygen over to 15L highflow NC. Patient currently sating 88-90% on 15L highflow. Will continue to monitor.
--- NOTE | 2020-01-09 08:33 | PM.IMPN ---
Progress Note: A&P Assessment and Plan (1) Acute respiratory failure with hypoxia: Code(s): J96.01 - Acute respiratory failure with hypoxia Status: Acute Assessment and Plan: Patient with low-grade fever few days ago. No chest x-ray on admission but CT of the abdomen did show the lower bases of the lungs that were relatively clear. Concern for COVID. Testing has been collected. Will check ferritin, LDH, D-dimer and CRP. Will also check EKG given the abnormal heart rhythm. Will see how he does clinically after the Lasix given this morning. He currently appears comfortable. Wean oxygen as tolerated. 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 Patient is a full code. Echo ordered. Case discussed with farmworkers. DDimer 13, Ferritin 125, LDH 574, CRP>9. COVID positive. EKG NSR, no AFib. 38 minutes spent on critical care time (2) Acute retention of urine: Code(s): R33.8 - Other retention of urine Status: Acute Assessment and Plan: Taken to OR 01/03 for cysto and underwent cautery. CBI post procedure and stopped yesterday as urine has cleared Plavix remians on hold. Creatinine stable 0.7. Since creatinine stable urologist not going to pursue stent or nephrostomy tube (3) Prostate cancer: Code(s): C61 - Malignant neoplasm of prostate Status: Acute Assessment and Plan: Recurrent and blocking urethra. Was opened and new catheter placed. (4) Hydronephrosis: Code(s): N13.30 - Unspecified hydronephrosis Status: Acute Assessment and Plan: As above. Creatinine stable at 0.7 and blocked ureter probable nonfunctioning kidney so no stent or nephrostomy tube planned per urology. (5) HTN (hypertension): Qualifiers: Hypertension type: essential hypertension Qualified Code(s): I10 - Essential (primary) hypertension Code(s): I10 - Essential (primary) hypertension Status: Acute Assessment and Plan: Blood pressure reviewed on 01/09/2020. Blood pressure well controlled. Continue amlodipine. (6) Diabetes: Qualifiers: Diabetes mellitus type: type 2 Code(s): E11.9 - Type 2 diabetes mellitus without complications Status: Acute Assessment and Plan: No recent A1c listed. Glucose reviewed on 01/09/2020. Glucose well controlled. Continue sliding scale protocol with frequent Accu-Cheks. Resume metformin at discharge. (7) Anemia: Code(s): D64.9 - Anemia, unspecified Status: Acute Assessment and Plan: Hemoglobin 6.7 on admission related to acute blood loss anemia from the hematuria. Patient transfused 1 unit of packed cells 01/04. Hgb 7-8 range since transfusion. (8) DVT (deep venous thrombosis): Code(s): I82.409 - Acute embolism and thrombosis of unspecified deep veins of unspecified lower extremity Status: Acute Assessment and Plan: Recent right lower extremity DVT and subsequent IVC filter placed approximately 14 days ago due to hematuria. Currently off anticoagulation. Venous Doppler of left lower extremity negative on this admission. CTA negative for PE. Echo ordered. (9) Myasthenia gravis: Code(s): G70.00 - Myasthenia gravis without (acute) exacerbation Status: Acute Assessment and Plan: Stable. Continue low-dose prednisone and pyridostigmine. Continue PT/OT Subjective Date/time seen: 01/09/20 08:33 Interval history: Date of visit 01/08. 74yo male with indwelling Henry and and prostate carcinoma admitted with difficulty urinating, leaking around Henry and hematuria. Was taken to the OR for cysto 01/03 and a large clot was extracted, cautery was applied, and receiving CBI until 01/07. History of DVT and Eliquis was held some 2 weeks ago when started having marked hematuria. IVC filter placed week before admission. Chart reviewed. Assuming care. Case discussed
--- NOTE | 2020-01-09 08:58 | ECG_ITS ---
Measurements Intervals Burna Rate: 99 P: 1 MA: 148 QRS: 7 QRSD: 81 T: 55 QT: 348 QTc: 447 Interpretive Statements SINUS RHYTHM SUPRAVENTRICULAR TRIGEMINY BORDERLINE ST-T WAVE ABNORMALITY- LATERAL LEADS ABNORMAL ECG Electronically Signed On 01-09-2020 10:08:32 CDT by Kemal Gramajo D.O.
[2020-01-09] MEDS: METOPROLOL TARTRATE 12.5 MG TABLET PO ×2 (09:11→20:05)
[2020-01-09] MEDS: predniSONE 5 MG TABLET PO (09:11)
[2020-01-09 09:56] LABS: CRP > 9.0 mg/dL (<1.0)
--- NOTE | 2020-01-09 10:00 | PCPTNOTE ---
Treatment this date, 01/09/2020 was held due to down grade in Pt's status per RN. Will continue per POC 01/10/2020.
[2020-01-09 10:01] LABS: D Dimer 13.09 ug/mL (<0.48)
[2020-01-09 10:02] LABS: Lactate Dehydrogenase 574 U/L (313-618)
[2020-01-09 10:18] LABS: Iron 12 ug/dL (49-181)
[2020-01-09 10:28] LABS: Percent Iron Saturation 5 % (20-50)
[2020-01-09 11:14] LABS: Folic Acid > 20.0 ng/mL (2.76->20)
--- NOTE | 2020-01-09 11:15 | PC.NURSE ---
This patient, Clint Ceron, was transferred to ICU on 01/09/20 at 1115. Personal belongings sent with patient. Belongings list checked and signed with receiving ICU. Report given to CATY Obregon. Appropriate documentation sent with patient.
--- NOTE | 2020-01-09 11:24 | PC.NURSE ---
Called to update patients on patients condition, Christine. No further questions at this time.
[2020-01-09 11:38] LABS: Glucose Point of Care 129 (65-105)
--- NOTE | 2020-01-09 11:53 | WPDCNINT ---
Assessment and Plan Assessment and plan (1) Acute respiratory failure with hypoxia: Code(s): J96.01 - Acute respiratory failure with hypoxia Status: Acute Assessment and Plan: on presentation patient did not had many respiratory symptoms but over his hospital stay he has became hypoxic and over time hypoxia has worsened. CT angiogram of lung was done yesterday to rule out PE and showed ground-glass opacities. chest x-ray done today showed worsening of infiltrates CTA 01/07 IMPRESSION: 1. Limited segmental evaluation, but no pulmonary emboli are suspected. 2. Moderate amount of groundglass airspace disease, likely acute process such as infection and/or edema. Acute lung injury from COVID 19 also possible. 3. Small pleural effusions. 4. Right hilar lymphadenopathy likely reactive. 5. Small hiatal hernia. CXR 01/08 IMPRESSION: 1. Worsened diffuse lung disease, consistent with atypical pneumonia such as COVID-19 versus pulmonary edema. 2. Sclerotic lesions of bone, consistent with metastatic diseas patient now on nasal cannula at 15 L. ABG shows hypoxia with preserved ventilator. no respiratory distress COVID-19 suspected. SARS-CoV-2 PCR sent and results pending Patient is in Airborne, Droplet and Contact Isolation monitor in ICU. May need intubation if hypoxic continues to worsen Lasix 40 mg IV given given and echo is pending Inflammatory markers light ferritin, LDH, D-dimer and CRP are ordered (2) Acute retention of urine: Code(s): R33.8 - Other retention of urine Status: Acute Assessment and Plan: Taken to OR 01/03 for cysto and underwent cautery. CBI post procedure and stopped yesterday as urine has cleared Plavix and anticoagulation on hold at this time as per urology Creatinine stable 0.7. Since creatinine stable urologist not going to pursue stent or nephrostomy tube (3) Prostate cancer: Code(s): C61 - Malignant neoplasm of prostate Status: Acute Assessment and Plan: Recurrent and blocking urethra. Was opened and new catheter placed. (4) Hydronephrosis: Code(s): N13.30 - Unspecified hydronephrosis Status: Acute Assessment and Plan: As above. Creatinine stable at 0.7 and blocked ureter probable nonfunctioning kidney so no stent or nephrostomy tube planned per urology. (5) HTN (hypertension): Qualifiers: Hypertension type: essential hypertension Qualified Code(s): I10 - Essential (primary) hypertension Code(s): I10 - Essential (primary) hypertension Status: Acute Assessment and Plan: Blood pressure well controlled. Continue amlodipine. (6) Diabetes: Qualifiers: Diabetes mellitus type: type 2 Code(s): E11.9 - Type 2 diabetes mellitus without complications Status: Acute Assessment and Plan: No recent A1c listed. Glucose reviewed on 01/09/2020. Glucose well controlled. Continue sliding scale protocol with frequent Accu-Cheks. Resume metformin at discharge. (7) Anemia: Code(s): D64.9 - Anemia, unspecified Status: Acute Assessment and Plan: Hemoglobin 6.7 on admission related to acute blood loss anemia from the hematuria. Patient transfused 1 unit of packed cells 01/04. hemoglobin now stable. no hematuria noticed notice at this time. monitor (8) DVT (deep venous thrombosis): Code(s): I82.409 - Acute embolism and thrombosis of unspecified deep veins of unspecified lower extremity Status: Acute Assessment and Plan: Recent right lower extremity DVT and subsequent IVC filter placed approximately 14 days ago due to hematuria. Currently off anticoagulation. Venous Doppler of left lower extremity negative on this admission. CTA negative for PE. Echo ordered and pending (9) Myasthenia gravis: Code(s): G70.00 - Myasthenia gravis without (acute) exacerbation Status: Acute Assessment a
[2020-01-09 12:09] LABS: Glucose Point of Care 137 (65-105)
[2020-01-09 14:56] LABS: SARS-CoV-2 RNA PCR Positive
--- NOTE | 2020-01-09 19:27 | PC.NURSE ---
patient placed on NRB 15L on top of 15L HF NC due to low O2sat of 82%.
[2020-01-09 20:00] LABS: Glucose Point of Care 121 (65-105)
[2020-01-09] MEDS: PANTOPRAZOLE 40 MG TABLET PO (20:05)
[2020-01-09] MEDS: methylPREDNISolone SOD SUCC 125 MG VIAL 100 MG IV PUSH (20:05)
[2020-01-09] MEDS: SERTRALINE HCL 50 MG TABLET PO (20:05)
[2020-01-09] MEDS: AMLODIPINE BESYLATE 5 MG TABLET PO (20:06)
[2020-01-09] MEDS: ATORVASTATIN 40 MG TABLET PO (20:06)
--- NOTE | 2020-01-09 22:54 | PC.NURSE ---
Spoke with Dr. Lopez regarding O2 Sat of 88-90% on 15L NC and NRB. Okay to put patient on High flow vapotherm and to keep NRB on top of it. Chest xray and ABG in am.
[2020-01-10] VITALS (35 sets, daily range): BP systolic 95–134; BP diastolic 48–69; PULSE 65–87; RESP 16–35; TEMP 34.7–37.7; O2SAT 89–100; BMI 30.3
--- NOTE | 2020-01-10 | ECHO_ITS ---
Patient Info Name: Clint Ceron Age: 74 years : 1945 Gender: Male Ht: 71 in Wt: 217 lbs BSA: 2.24 m2 HR: 77 bpm BP: 97 / 64 mmHg Heart Rhythm: Sinus Rhythm Technical Quality: Good Exam Date: 01/10/2020 8:47 AM Exam Location: [facility] Pulmonary Patient Status: Inpatient Admit Date: 01/05/2020 Staff Ordering Physician: Rajat Melgar MD Tapping Machine Operator Automatic: Parvez Hanks, DOM, RT Attending Provider: Jaycob Munguia MD Referring Physician: Talia VELÁSQUEZ; Exam Type: CA echo doppler color flow Study Info Indications J96.91 - Respiratory failure, unspecified with hypoxia Complete two-dimensional, color flow and Doppler transthoracic echocardiogram is performed. Summary 1. Left ventricular chamber dimension is normal. 2. Left ventricular systolic function is normal, estimated at 60-65%. 3. There is mildly increased left ventricular wall thickness. 4. Left ventricular septal wall motion is normal. 5. The left ventricular diastolic function is grade I diastolic dysfunction. 6. Right ventricular chamber dimension is mildly enlarged. 7. There is mild to moderate aortic valve regurgitation. 8. There is mild tricuspid valve regurgitation. 9. Mild pulmonary hypertension, estimated pulmonary arterial systolic pressure is 40 mmHg. 10. There is mild to moderate pulmonic regurgitation. Left Ventricle Left ventricular chamber dimension is normal. Left ventricular systolic function is normal, estimated at 60-65%. There is mildly increased left ventricular wall thickness. Left ventricular septal wall motion is normal. The left ventricular diastolic function is grade I diastolic dysfunction. Right Ventricle Right ventricular chamber dimension is mildly enlarged. Right ventricular systolic function is normal. Left Atria Left atrial chamber dimension is normal. Right Atria Right atrial chamber dimension is normal. Atrial Septum Intact interatrial septum visualized by color flow imaging. Aortic Valve The aortic valve is trileaflet. There is mild aortic valve sclerosis. There is no aortic valve stenosis. There is mild to moderate aortic valve regurgitation. Pulmonic Valve The pulmonic valve is normal. There is no pulmonic valve stenosis. There is mild to moderate pulmonic regurgitation. Mitral Valve The mitral valve has thickened leaflets. There is no mitral valve stenosis. There is trace mitral valve regurgitation. Tricuspid Valve Mild pulmonary hypertension, estimated pulmonary arterial systolic pressure is 40 mmHg. The tricuspid valve leaflets are normal. There is no significant tricuspid valve stenosis. There is mild tricuspid valve regurgitation. Pericardium/Pleural The pericardium appears normal. There is no pericardial effusion. Inferior Vena Cava Dilated inferior vena cava with no collapse upon inspiration consistent with elevated right atrial pressure, 15 mmHg. Aorta The aortic root size at the sinus of Valsalva is dilated. Left Ventricular Outflow Tract Name Value Normal LVOT Doppler LVOT Peak Velocity 124 cm/s LVOT Peak Gradient 6 mmHg LVOT Mean Gradient 3 mmHg LVOT VTI
[2020-01-10 04:07] LABS: Alveolar/Arterial O2 Gradient 612.8 mmHg; Base Excess ABG -1.5 mEq/l (+/-2.0); Carboxyhemoglobin 0.3 % THb (0-2.0); Fractional Inspired Oxygen 100 %; HCO3 ABG 24.2 mEq/l (22.0-26.0); Methemoglobin ABG 0.6 %THb (0-1.5); Oxygen Content ABG 10.9 %vol (16.0-22.0); Oxyhemoglobin 86.6 % THb (90.0-100.0); PCO2 ABG 45.1 mmHg (35.0-45.0); PO2 ABG 55.1 mmHg (80.0-100.0); PO2 FiO2 Ratio Arterial Blood 0.55 %; Reduced Hemoglobin 12.5 %THb (0-5.0); Total Hemoglobin 8.9 g/dL (12.0-18.0); pH ABG 7.347 (7.350-7.450)
[2020-01-10 04:09] LABS: Modified Allen's Test Pass; Site Drawn LEFT RADIAL
[2020-01-10 04:10] LABS: Device HIGH FLOW NASAL CANN
[2020-01-10 04:13] LABS: Basophils Percent Auto 0.2 % (0.2-1.2); Hematocrit 25.8 % (42.0-52.0); Hemoglobin 7.8 g/dL (14.0-18.0); Immature Granulocyte Absolute 0.03 K/mm3 (0.00-0.031); Immature Granulocyte Percent A 0.5 % (0-0.5); Lymphocytes Absolute Auto 0.28 K/mm3 (0.9-3.2); Lymphocytes Percent Auto 4.9 % (18.3-44.2); Mean Corpuscular HGB Conc 30.2 g/dl (32-36); Mean Corpuscular Hemoglobin 26.4 pg (26-34); Mean Corpuscular Volume 87.2 fl (80-100); Monocytes Absolute Auto 0.1 K/mm3 (0.1-0.6); Monocytes Percent Auto 0.9 % (2.6-8.5); Neutrophils Absolute Auto 5.3 K/mm3 (1.3-6.7); Neutrophils Percent Auto 93.5 % (45.5-73.1); Platelet Count Result 263 k/mm3 (150-375); Red Blood Count 2.96 M/mm3 (4.6-6.20); Red Cell Distribution Width 16.8 % (11.5-14.5); White Blood Count 5.7 K/mm3 (4.5-10.0)
[2020-01-10 04:25] LABS: Alanine Aminotransferase 12 U/L (4-50); Albumin Level 2.7 g/dL (3.5-5.1); Alkaline Phosphatase 90 U/L (38-126); Aspartate Amino Transferase 40 U/L (17-59); Bilirubin,Total 0.4 mg/dL (0.2-1.3); Blood Urea Nitrogen 16 mg/dL (9-20); Calcium 7.2 mg/dL (8.4-10.2); Carbon Dioxide 27 mmol/L (22-30); Chloride 108 mmol/L (98-107); Estimated CRCL calculation 94 ml/min; Estimated Glomerular Filt Rate > 60; Glucose 187 mg/dL (75-110); Phosphorus 2.9 mg/dL (2.5-4.5); Potassium 3.8 mmol/L (3.4-5.0); Sodium 138 mmol/L (137-145)
[2020-01-10] MEDS: RAPID SEQUENCE INTUBATION KIT 1 EACH (04:30)
--- NOTE | 2020-01-10 05:15 | WPDPROCEDUR ---
Procedures Intubation Intubation Date: 01/10/20 Intubation Time: 05:15 A pre-procedural Time-Out was completed immediately before starting the procedure and confirmed: Patient Identification, Site, Procedure, Patient Position and the Availability of Requisite Equipment: Yes Sedative: etomidate Mg given: 10 Paralytic: succinylcholine Mg given: 100 Laryngoscope: fiber optic video scope ET tube size: 8 Tube secured depth (cm): 26 Tube secured location: lips Tube placement confirmation: visualized tube passing through cords, equal breath sounds bilaterally, no breath sounds over epigastrium and confirmation by capnometry Patient tolerated procedure: well Intubation complications: none Additional comments: Date of service was 01/10/2020 at 04:40 hrs.
--- NOTE | 2020-01-10 05:15 | WPDPROCEDUR ---
Procedures Central Line Placement Right IJ: Central Line Date: 01/10/20 Central Line Time: 05:16 Discussed w/ the patient/family/POA,the placement of a central venous catheter, including its clinical necessity/indication & associated potential risks, benifits and alternatives.: Yes Consent: verbal Time Out Performed: Yes Patient Position: supine Patient placed on monitor/pulse ox: Yes Provider Prep: mask, sterile gown, sterile gloves, Max. sterile barrier precautions, cap and hand hygiene Central line prep: Povidone-Iodine 1% Ultrasound used for placement: Yes Central line lumen inserted: triple Kinyarwanda: 7 Length (cm): 17 Depth of Insertion (cm): 16 Post procedure: sutured in place, good blood return, all ports aspirated, flushed, capped, tegaderm, hemostatic disc, antimicrobial disc and aseptic technique maintained throughout procedure Post procedure x-ray: tip of catheter in good position and no pneumothorax seen Patient tolerated procedure: well Complications: none Additional comments: Date of service was 01/10/2020 at 04:50 hrs.
[2020-01-10 06:21] LABS: Alveolar/Arterial O2 Gradient 474.9 mmHg; Base Excess ABG -0.8 mEq/l (+/-2.0); Carboxyhemoglobin 0.3 % THb (0-2.0); Fractional Inspired Oxygen 100 %; HCO3 ABG 24.3 mEq/l (22.0-26.0); Methemoglobin ABG 0.7 %THb (0-1.5); Oxygen Content ABG 12.3 %vol (16.0-22.0); Oxygen Saturation ABG 99.3 % (95.0-100.0); Oxyhemoglobin 97.5 % THb (90.0-100.0); PCO2 ABG 42.1 mmHg (35.0-45.0); PO2 FiO2 Ratio Arterial Blood 1.96 %; Reduced Hemoglobin 1.5 %THb (0-5.0); Total Hemoglobin 8.6 g/dL (12.0-18.0)
[2020-01-10 06:22] LABS: Device VENTILATOR; Modified Allen's Test Pass; Site Drawn LEFT RADIAL
[2020-01-10 06:23] LABS: Arterial Blood Gas PEEP 15 cmH2O; Arterial Blood Gas Tidal Volume 450 ml; Arterial Blood Gas Vent Mode CMV; Arterial Blood Gas Ventilator rate 20 /MIN
--- NOTE | 2020-01-10 07:57 | PCPTNOTE ---
Mr Ceron has moved from 2 Medical to ICU - condition has worsened. Need to stop PT at this time. Will await for new orders once his condition has improved.
--- NOTE | 2020-01-10 08:30 | WPDINTPN ---
Progress Note: A&P Assessment and Plan (1) Acute respiratory failure with hypoxia: Code(s): J96.01 - Acute respiratory failure with hypoxia Status: Acute Assessment and Plan: Acute respiratory failure secondary to COVID-19 Pt on presentation patient did not had many respiratory symptoms but over his hospital stay he has became hypoxic and over time hypoxia has worsened. CT angiogram of lung was done yesterday to rule out PE and showed ground-glass opacities. chest x-ray done today showed worsening of infiltrates 01/08 transferred to ICU and SARS-CoV-2 PCR positive 01/09 hypoxia worsened and patient was intubated and placed on mechanical ventilation continue Airborne, Droplet and Contact Isolation Solu-Medrol 1 mg kg daily for 5 days Cautious IVF Follow Troponin, LDH, D-Dimer, CRP, Procal, Ferritin periodically echo is pending will consult infectious disease Ventilator settings reviewed and patient is on 60% FiO2 and I have decrease PEEP to 12. Patient is sedated this time. may need paralytic or even prone ventilation if worsens further CTA 01/07 IMPRESSION: 1. Limited segmental evaluation, but no pulmonary emboli are suspected. 2. Moderate amount of groundglass airspace disease, likely acute process such as infection and/or edema. Acute lung injury from COVID 19 also possible. 3. Small pleural effusions. 4. Right hilar lymphadenopathy likely reactive. 5. Small hiatal hernia. CXR 01/08 IMPRESSION: 1. Worsened diffuse lung disease, consistent with atypical pneumonia such as COVID-19 versus pulmonary edema. 2. Sclerotic lesions of bone, consistent with metastatic diseas (2) Acute retention of urine: Code(s): R33.8 - Other retention of urine Status: Acute Assessment and Plan: Taken to OR 01/03 for cysto and underwent cautery. CBI post procedure and stopped yesterday as urine has cleared Plavix and anticoagulation on hold at this time as per urology Creatinine stable 0.7. Since creatinine stable urologist not going to pursue stent or nephrostomy tube (3) Prostate cancer: Code(s): C61 - Malignant neoplasm of prostate Status: Acute Assessment and Plan: Recurrent and blocking urethra. Was opened and new catheter placed. (4) Hydronephrosis: Code(s): N13.30 - Unspecified hydronephrosis Status: Acute Assessment and Plan: As above. Creatinine stable at 0.7 and blocked ureter probable nonfunctioning kidney so no stent or nephrostomy tube planned per urology. (5) HTN (hypertension): Qualifiers: Hypertension type: essential hypertension Qualified Code(s): I10 - Essential (primary) hypertension Code(s): I10 - Essential (primary) hypertension Status: Acute Assessment and Plan: Blood pressure well controlled. hold p.o. blood pressure meds (6) Diabetes: Qualifiers: Diabetes mellitus type: type 2 Code(s): E11.9 - Type 2 diabetes mellitus without complications Status: Acute Assessment and Plan: is on sliding scale. (7) Anemia: Code(s): D64.9 - Anemia, unspecified Status: Acute Assessment and Plan: Hemoglobin 6.7 on admission related to acute blood loss anemia from the hematuria. Patient transfused 1 unit of packed cells 01/04. hemoglobin now stable. no hematuria noticed at this time. monitor (8) DVT (deep venous thrombosis): Code(s): I82.409 - Acute embolism and thrombosis of unspecified deep veins of unspecified lower extremity Status: Acute Assessment and Plan: Recent right lower extremity DVT and subsequent IVC filter placed approximately 14 days ago due to hematuria. Currently off anticoagulation as per urology. Venous Doppler of left lower extremity negative on this admission. CTA negative for PE. Echo ordered and pending will discuss with urology regarding timing of resuming heparin infusion (9) Myasthen
[2020-01-10] MEDS: methylPREDNISolone SOD SUCC 125 MG VIAL 100 MG IV PUSH (10:46)
[2020-01-10] MEDS: PYRIDOSTIGMINE BROMIDE 60 MG TABLET PO ×3 (10:53→21:47)
[2020-01-10 11:44] LABS: Alveolar/Arterial O2 Gradient 254.3 mmHg; Base Excess ABG -0.6 mEq/l (+/-2.0); Fractional Inspired Oxygen 50 %; HCO3 ABG 23.9 mEq/l (22.0-26.0); Oxygen Content ABG 14.3 %vol (16.0-22.0); Oxygen Saturation ABG 90.9 % (95.0-100.0); Oxyhemoglobin 90.5 % THb (90.0-100.0); PCO2 ABG 38.5 mmHg (35.0-45.0); PO2 ABG 58.9 mmHg (80.0-100.0); PO2 FiO2 Ratio Arterial Blood 1.18 %; Total Hemoglobin 11.2 g/dL (12.0-18.0)
[2020-01-10 11:45] LABS: Device VENTILATOR; Modified Allen's Test Pass; Site Drawn LEFT RADIAL
[2020-01-10 11:46] LABS: Arterial Blood Gas PEEP 12 cmH2O; Arterial Blood Gas Tidal Volume 450 ml; Arterial Blood Gas Vent Mode CMV; Arterial Blood Gas Ventilator rate 20 /MIN
[2020-01-10 12:35] LABS: Glucose Point of Care 159 (65-105)
[2020-01-10 12:35] LABS: Glucose Point of Care 174 (65-105)
--- NOTE | 2020-01-10 13:31 | PM.EVENT ---
Event Note Event Note Event Note: Spoke to urologist and he is okay with starting heparin infusion. Recommended restarting CBI if patient develops hematuria
[2020-01-10 14:01] LABS: Basophils Percent Auto 0.2 % (0.2-1.2); Hematocrit 23.1 % (42.0-52.0); Hemoglobin 7.1 g/dL (14.0-18.0); Immature Granulocyte Absolute 0.03 K/mm3 (0.00-0.031); Immature Granulocyte Percent A 0.7 % (0-0.5); Lymphocytes Absolute Auto 0.35 K/mm3 (0.9-3.2); Lymphocytes Percent Auto 8.7 % (18.3-44.2); Mean Corpuscular HGB Conc 30.7 g/dl (32-36); Mean Corpuscular Hemoglobin 26.2 pg (26-34); Mean Corpuscular Volume 85.2 fl (80-100); Mean Platelet Volume 10.6 fl (7.4-10.4); Monocytes Absolute Auto 0.1 K/mm3 (0.1-0.6); Neutrophils Absolute Auto 3.5 K/mm3 (1.3-6.7); Neutrophils Percent Auto 88.4 % (45.5-73.1); Platelet Count Result 229 k/mm3 (150-375); Red Blood Count 2.71 M/mm3 (4.6-6.20); Red Cell Distribution Width 16.5 % (11.5-14.5)
[2020-01-10 14:11] LABS: INR 1.1; Prothrombin Time 13.8 Seconds (11.1-14.7)
[2020-01-10 14:12] LABS: Partial Thromboplastin Time 40.3 SECONDS (22.3-36.8)
--- NOTE | 2020-01-10 14:14 | WPDINFPN2 ---
Progress Note: A&P Assessment and Plan (1) Pneumonia due to COVID-19 virus: Code(s): U07.1 - COVID-19; J12.89 - Other viral pneumonia Status: Acute Assessment and Plan: 1. Fever and hypoxemia due to CoVid viral pneumonia 2. Chronic steroid, now on stress doses 3. Prostate cancer 4. DVT REC No proven therapy for this infection, and off-label therapies should not be used outside of a clinical trial. On isolation. Subjective Date/time seen: 01/10/20 14:14 Objective Data Vital Signs Vital Signs: Vital Signs - 24 hr 01/09/20 16:00 01/09/20 18:00 01/09/20 19:37 Temperature 36.8 C Pulse Rate 81 88 91 Respiratory Rate 18 14 29 H Blood Pressure 84/54 L 133/49 L Pulse Oximetry 100 90 95 01/09/20 20:00 01/09/20 20:05 01/09/20 20:30 Temperature 36.6 C Pulse Rate 90 90 88 Respiratory Rate 29 H 18 Blood Pressure 139/51 L Pulse Oximetry 94 92 01/09/20 22:00 01/10/20 00:00 01/10/20 01:55 Temperature 37.3 C Pulse Rate 80 79 81 Respiratory Rate 31 H 26 H Blood Pressure 126/51 L 125/48 L Pulse Oximetry 92 91 01/10/20 02:00 01/10/20 03:03 01/10/20 04:00 Temperature 36.7 C Pulse Rate 85 82 87 Respiratory Rate 35 H 35 H 27 H Blood Pressure 131/57 L 134/56 L Pulse Oximetry 94 91 89 L 01/10/20 04:31 01/10/20 05:00 01/10/20 05:05 Temperature Pulse Rate 87 74 70 Respiratory Rate 20 16 Blood Pressure 101/56 L Pulse Oximetry 99 96 100 01/10/20 05:30 01/10/20 06:00 01/10/20 08:00 Temperature Pulse Rate 68 71 77 Respiratory Rate 20 20 20 Blood Pressure 97/69 L 109/55 L Pulse Oximetry 100 100 100 01/10/20 08:36 01/10/20 10:00 01/10/20 10:15 Temperature 34.7 C L Pulse Rate 77 76 77 Respiratory Rate 20 Blood Pressure 103/60 Pulse Oximetry 95 100 01/10/20 11:26 01/10/20 11:54 01/10/20 12:00 Temperature 34.7 C L 35.0 C L Pulse Rate 73 68 Respiratory Rate 20 Blood Pressure 96/57 L Pulse Oximetry 92 95 01/10/20 12:09 01/10/20 12:24 01/10/20 12:38 Temperature 35.0 C L 35.1 C L 34.9 C L Pulse Rate Respiratory Rate Blood Pressure Pulse Oximetry Intake/Output Intake/Output: Intake & Output 01/07/20 01/08/20 01/09/20 01/10/20 23:59 23:59 23:59 23:59 Intake Total 1450 510 600 200 Output Total 3200 1125 1500 425 [facility] -[phone] Meds/Results Medications: Active Medications Generic Name Dose Route Start Last Admin Trade Name Freq PRN Reason Stop Dose Admin Acetaminophen 650 mg 01/04/20 15:50 01/06/20 06:32 Tylenol Tablet PO 650 mg Q6H PRN Administration Mild Pain (1-3) or Fever Atorvastatin Calcium 40 mg 01/04/20 21:00 01/09/20 20:06 Lipitor PO 40 mg HS LUCIANO Administration Dextrose 12.5 gm 01/04/20 17:07 Dextrose 50% Syringe IV PUSH PRN PRN Hypoglycemia Protocol Glucagon 1 mg 01/04/20 17:07 Glucagon For Inj IM PRN PRN Hypoglycemia Protocol Glucose 15 gm 01/04/20 17:07 Glutose 15 PO PRN PRN Hypoglycemia Protocol Heparin Sodium (Porcine) 7,000 units 01/10/20 13:32 Heparin Sodium IV PUSH PRN PRN aPTT less than 55 seconds Heparin Sodium (Porcine) 3,500 units 01/10/20 13:32 Heparin Sodium IV PUSH PRN PRN aPTT 55 - 70 seconds Dextrose 1,000 mls @ 100 mls/hr 01/04/20 17:07 Dextrose 5% 1,000 Ml IVPB PRN PRN Hypoglycemia Protocol Midazolam HCl 50 mg in 100 mls @ 2 mls/hr 01/10/20 04:35 01/10/20 04:40 Versed 50 Mg/D5w 100 Ml IV CONT 4 mg/hr .Q50H LUCIANO 8 mls/hr Administration Protocol 1 MG/HR Fentanyl Citrate 2,500 mcg in 250 mls @ 2.5 mls/hr 01/10/20 04:35 01/10/20 04:40 Fentanyl 2,500 Mcg/Ns 250 Ml IV CONT 100 mcg/hr .Q72H LUCIANO 10 mls/hr Administration Protocol 25 MCG/HR Norepinephrine Bitartrate 8 mg in 250 mls @ 9.375 mls/hr 01/10/20 04:55 Levophed 8 Mg/D5w 250 Ml IV CONT .[id number] LUCIANO Pro
--- NOTE | 2020-01-10 15:12 | CONS_ITS ---
DATE OF CONSULTATION: 01/10/2020 REASON FOR CONSULTATION: Fever. HISTORY OF PRESENT ILLNESS: The patient is a 74-year-old male who cannot provide any history as he is intubated. He has locally advanced and metastatic prostate cancer and underwent recent cystoscopy. He was admitted to the hospital originally on January 02 with Henry catheter malfunction and leakage. He was taken to the operating room the following day where he underwent cystoscopy by Dr. Lord and cauterization of the bladder neck. No infection was visualized. He was recovering postop with a CBI. While here, he received a single dose of cefazolin preop. He has been maintained on his home prednisone until outlined below. He has not required any vasopressors and has been on no antibacterials. Early yesterday morning, he had new onset of hypoxemia. He eventually was intubated. COVID test was positive, consultation requested. The patient was afebrile initially, but on the morning of the had a T-max of 38.6 and yesterday T-max 37.7. No other operative intervention. He did have placement of a right IJ triple-lumen catheter yesterday. Henry catheter remains in place. He has had no ill contacts apparently. ALLERGIES: NONE KNOWN. HABITS: Briefly smoked. No alcohol. PRESENT MEDICATIONS: Methylprednisolone. No other immunosuppressants. PAST MEDICAL HISTORY: In addition to the above, cataract extractions, TURP, IVC filter, right total hip arthroplasty, KENISHA, hyperlipidemia, myasthenia gravis, GERD, hypertension, diabetes, DVT. FAMILY HISTORY: Not pertinent to his present illness. 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 . Lives locally. REVIEW OF SYSTEMS: A 14-point review otherwise negative per chart, not obtainable from the patient due to endotracheal tube. PHYSICAL EXAMINATION: GENERAL: This is an elderly male who appears actual age. T-max as above. He is now hypothermic and has a warming blanket on. VITAL SIGNS: Pulse 68, respirations 20, blood pressure 96/57. No pressors. He has no arterial lines. No groin catheters. He does have a Henry catheter, draining clear yellow urine. SKIN: Warm and dry. No generalized rash. EENT: Conjunctivae are normal. Pupils equal and round. His tube compromises oral exam, but inspection is normal within those limits. NECK: Without meningismus, mass, tenderness. LUNGS: Diminished breath sounds, otherwise clear to auscultation and percussion. Breath sounds are vesicular. CHEST: Equal expansion. Normal AP diameter. Right IJ catheter without hematoma or drainage. CARDIAC: Regular rate and rhythm. No murmur, gallop, or rub. ABDOMEN: Obese, nontender. No organomegaly. No masses. EXTREMITIES: Well perfused. No clubbing, cyanosis, or edema. NEUROLOGIC: He has normal muscle tone. LABORATORY DATA: His COVID PCR is reactive. Blood cultures from January 05 with his initial fever are no growth so far. A C. diff assay was obtained the following day and was nonreactive. White blood cell count had been consistently normal. Hemoglobin 7.1, platelets are 229. Prothrombin time 13.8. Blood gases 7.41, 39, 59, 24, 91% on the noted ventilator setting. Chemistry panel is normal other than high chloride and high glucose. Iron and TIBC both low. Transaminases normal. LDH normal. CRP over 9 and his urinalysis noted. RADIOLOGY DATA: I personally reviewed his chest x-ray and also note the radiologist readings indicative of diffuse lung infiltrates, worsening since January 07. No chest x-ray was done on admission. ASSESSMENT: 1. Fever and hypoxemia due to viral pneumonia in turn due to COVID-19. Other causes of his fever are unlikely including urinary tract infection, upper lower tract, primary bloodstream infection, other forms
[2020-01-10] MEDS: HEPARIN SOD/D5W 100 UNITS/ML 25,000 UNITS/250 ML BAG 15 UNITS IV CONT (15:30)
[2020-01-10 16:46] LABS: Glucose Point of Care 165 (65-105)
--- NOTE | 2020-01-10 17:30 | PM.IMPN ---
Progress Note: A&P Assessment and Plan (1) Acute respiratory failure with hypoxia: Code(s): J96.01 - Acute respiratory failure with hypoxia Status: Acute Assessment and Plan: Patient with low-grade fever on 01/06/20. No chest x-ray on admission but CT of the abdomen did show the lower bases of the lungs that were relatively clear. Patient had been on 1-2 L during his hospitalization. On 01/07, however, he required 3 L prompting CTA of the chest showing moderate amount of ground-glass airspace opacities consistent with infection versus edema versus COVID but no PE. Oxygen requirement increased to 15 L non-rebreather with pH is 7.37, pCO2 of 44 and PO2 of 74 (AA gradient of 600). BNP 617. Lasix IV x1 was given and patient moved to ICU. DDimer 13, Ferritin 125, LDH 574, CRP>9. COVID positive. Patient required intubation this morning. Continue supportive care. Wean O2 as toelrated. Discussed with by phone. (2) Acute retention of urine: Code(s): R33.8 - Other retention of urine Status: Acute Assessment and Plan: Taken to OR 01/03 for cysto and underwent cautery. CBI post procedure and stopped on 01/08/20 since urine had cleared. Plavix remains on hold. Creatinine stable 0.7. Since creatinine stable, urologist not placing stent or nephrostomy tubes at this time. (3) Prostate cancer: Code(s): C61 - Malignant neoplasm of prostate Status: Acute Assessment and Plan: Cysto on 01/03 showing marked regrowth of locally advanced, recurrence prostate carcinoma that is covering the bladder neck and trigone. He iunderwent clot evacuation. The ureteral orifice could not be located. Patient underwent extensive cauterization of the bladder neck with a rollerball electrode. Monitor closely for evidence of rebleeding. (4) Hydronephrosis: Code(s): N13.30 - Unspecified hydronephrosis Status: Acute Assessment and Plan: As above. Creatinine stable at 0.7 and blocked ureter probable nonfunctioning kidney so no stent or nephrostomy tube planned per urology. (5) HTN (hypertension): Qualifiers: Hypertension type: essential hypertension Qualified Code(s): I10 - Essential (primary) hypertension Code(s): I10 - Essential (primary) hypertension Status: Acute Assessment and Plan: Blood pressure reviewed on 01/10/2020. Blood pressure soft at times. Amlodipine stopped for now. He has not required any pressor therapy. (6) Diabetes: Qualifiers: Diabetes mellitus type: type 2 Code(s): E11.9 - Type 2 diabetes mellitus without complications Status: Acute Assessment and Plan: No recent A1c listed. Glucose reviewed on 01/10/2020. Glucose well controlled. Continue sliding scale protocol with frequent Accu-Cheks. Metformin remains on hold. (7) Anemia: Code(s): D64.9 - Anemia, unspecified Status: Acute Assessment and Plan: Hemoglobin 6.7 on admission related to acute blood loss anemia from the hematuria. Patient transfused 1 unit of packed cells 01/04. Hgb 7-8 range since transfusion. Hgb 7.8 today. Continue to monitor closely on Heparin gtt. (8) DVT (deep venous thrombosis): Code(s): I82.409 - Acute embolism and thrombosis of unspecified deep veins of unspecified lower extremity Status: Acute Assessment and Plan: Recent right lower extremity DVT and subsequent IVC filter placed approximately 2 weeks prior to admission due to hematuria. Venous Doppler of left lower extremity negative on this admission. CTA negative for PE. Heparin resumed due to COVID. (9) Myasthenia gravis: Code(s): G70.00 - Myasthenia gravis without (acute) exacerbation Status: Acute Assessment and Plan: Stable. Started on Solu-Medrol. Continue pyridostigmine. Subjective Date/time seen: 01/10/20 17:30 Interval history: 74yo male with indwe
[2020-01-10] MEDS: ATORVASTATIN 40 MG TABLET PO (20:14)
[2020-01-10] MEDS: PANTOPRAZOLE 40 MG TABLET PO (20:14)
[2020-01-10 22:25] LABS: Partial Thromboplastin Time > 200.0 SECONDS (22.3-36.8)
[2020-01-11] VITALS (27 sets, daily range): BP systolic 112–134; BP diastolic 58–65; PULSE 67–89; RESP 20–24; TEMP 35.1–36.6; O2SAT 96–99
[2020-01-11] MEDS: INSULIN ASPART (*BKC) 100 UNITS/ML SUB-Q ×5 (00:39→23:34)
[2020-01-11 01:00] LABS: Glucose Point of Care 208 (65-105)
[2020-01-11 03:17] LABS: Alveolar/Arterial O2 Gradient 209.4 mmHg; Base Excess ABG 0.6 mEq/l (+/-2.0); Carboxyhemoglobin 0.2 % THb (0-2.0); Device VENTILATOR; Fractional Inspired Oxygen 50 %; HCO3 ABG 25.6 mEq/l (22.0-26.0); Methemoglobin ABG 0.6 %THb (0-1.5); Modified Allen's Test Unable to perform; Oxygen Content ABG 11.3 %vol (16.0-22.0); Oxygen Saturation ABG 97.4 % (95.0-100.0); Oxyhemoglobin 95.6 % THb (90.0-100.0); PCO2 ABG 43.1 mmHg (35.0-45.0); PO2 ABG 98.6 mmHg (80.0-100.0); PO2 FiO2 Ratio Arterial Blood 1.97 %; Reduced Hemoglobin 3.6 %THb (0-5.0); Site Drawn RIGHT RADIAL; Total Hemoglobin 8.3 g/dL (12.0-18.0); pH ABG 7.392 (7.350-7.450)
[2020-01-11 03:18] LABS: Arterial Blood Gas PEEP 12 cmH2O; Arterial Blood Gas Tidal Volume 450 ml; Arterial Blood Gas Vent Mode CMV; Arterial Blood Gas Ventilator rate 20 /MIN
[2020-01-11 04:56] LABS: Hematocrit 22.6 % (42.0-52.0); Immature Granulocyte Absolute 0.04 K/mm3 (0.00-0.031); Immature Granulocyte Percent A 0.7 % (0-0.5); Lymphocytes Absolute Auto 0.45 K/mm3 (0.9-3.2); Lymphocytes Percent Auto 7.9 % (18.3-44.2); Mean Corpuscular Hemoglobin 26.4 pg (26-34); Mean Corpuscular Volume 85.3 fl (80-100); Mean Platelet Volume 10.9 fl (7.4-10.4); Monocytes Absolute Auto 0.1 K/mm3 (0.1-0.6); Monocytes Percent Auto 1.9 % (2.6-8.5); Neutrophils Absolute Auto 5.1 K/mm3 (1.3-6.7); Neutrophils Percent Auto 89.5 % (45.5-73.1); Platelet Count Result 257 k/mm3 (150-375); Red Blood Count 2.65 M/mm3 (4.6-6.20); Red Cell Distribution Width 16.6 % (11.5-14.5); White Blood Count 5.7 K/mm3 (4.5-10.0)
[2020-01-11] MEDS: PYRIDOSTIGMINE BROMIDE 60 MG TABLET PO ×3 (05:02→21:17)
[2020-01-11 05:07] LABS: Potassium 3.2 mmol/L (3.4-5.0)
[2020-01-11 05:09] LABS: D Dimer 1.94 ug/mL (<0.48); Partial Thromboplastin Time 153.5 SECONDS (22.3-36.8)
[2020-01-11 05:20] LABS: Troponin I < 0.012 ng/mL (0.000-0.034)
[2020-01-11 05:32] LABS: Alanine Aminotransferase 11 U/L (4-50); Albumin Level 2.6 g/dL (3.5-5.1); Alkaline Phosphatase 87 U/L (38-126); Aspartate Amino Transferase 31 U/L (17-59); Bilirubin,Total 0.3 mg/dL (0.2-1.3); Blood Urea Nitrogen 28 mg/dL (9-20); CRP 13.6 mg/dL (<1.0); Calcium 6.7 mg/dL (8.4-10.2); Carbon Dioxide 27 mmol/L (22-30); Chloride 107 mmol/L (98-107); Estimated CRCL calculation 75 ml/min; Estimated Glomerular Filt Rate > 60; Glucose 215 mg/dL (75-110); Lactate Dehydrogenase 597 U/L (313-618); Sodium 138 mmol/L (137-145)
--- NOTE | 2020-01-11 08:37 | WPDUROPN2 ---
Progress Note: A&P Assessment and Plan (1) Gross hematuria: Code(s): R31.0 - Gross hematuria Status: Acute (2) Prostate cancer: Code(s): C61 - Malignant neoplasm of prostate Status: Acute Assessment and Plan: Urine remains clear following resumption of anticoagulation. Renal function stable/good. Subjective Subjective Date/Time Seen: 01/11/20 08:37 Remains intubated/sedated. PEEP diminished slightly over last 24-hours. Review of Systems Review of Systems: ROS unobtainable: Yes unobtainable due to endotracheal tube Exam GI: Inspection: normal to inspection Urinary Catheter: Urinary Catheter: patent and draining and urine clear Objective Data Vital Signs Vital Signs: Vital Signs - 24 hr 01/10/20 10:00 01/10/20 10:15 01/10/20 11:26 Temperature 94.5 F L Pulse Rate 76 77 73 Respiratory Rate 20 Blood Pressure 103/60 Pulse Oximetry 100 92 01/10/20 11:54 01/10/20 12:00 01/10/20 12:09 Temperature 94.5 F L 95.0 F L 95.0 F L Pulse Rate 72 Respiratory Rate 20 Blood Pressure 96/57 L Pulse Oximetry 95 01/10/20 12:24 01/10/20 12:38 01/10/20 12:54 Temperature 95.2 F L 94.9 F L 96.2 F L Pulse Rate Respiratory Rate Blood Pressure Pulse Oximetry 01/10/20 14:00 01/10/20 14:40 01/10/20 14:54 Temperature 97.8 F Pulse Rate 74 76 Respiratory Rate 20 Blood Pressure 95/55 L Pulse Oximetry 95 95 01/10/20 15:56 01/10/20 16:00 01/10/20 16:40 Temperature 97.9 F Pulse Rate 75 73 74 Respiratory Rate 20 20 20 Blood Pressure 102/61 Pulse Oximetry 94 94 91 01/10/20 17:43 01/10/20 18:00 01/10/20 20:00 Temperature 97.5 F L 97.7 F Pulse Rate 76 65 73 Respiratory Rate 20 20 Blood Pressure 105/58 L 111/55 L Pulse Oximetry 95 94 97 01/10/20 20:08 01/10/20 22:00 01/10/20 23:08 Temperature Pulse Rate 72 81 79 Respiratory Rate 20 Blood Pressure 107/61 Pulse Oximetry 97 98 99 04/29/20 23:46 01/11/20 00:00 01/11/20 01:43 Temperature 97.7 F Pulse Rate 81 83 73 Respiratory Rate 20 20 Blood Pressure 124/65 Pulse Oximetry 99 97 97 01/11/20 02:00 01/11/20 03:58 01/11/20 04:00 Temperature 97.7 F Pulse Rate 72 73 70 Respiratory Rate 20 20 20 Blood Pressure 116/62 114/59 L Pulse Oximetry 97 97 98 01/11/20 05:15 01/11/20 05:57 01/11/20 06:00 Temperature Pulse Rate 72 69 69 Respiratory Rate 20 Blood Pressure 118/61 Pulse Oximetry 98 97 Intake/Output Intake/Output: Intake & Output 01/08/20 01/09/20 01/10/20 01/11/20 23:59 23:59 23:59 23:59 Intake Total 510 600 460 315 Output Total 1125 1500 775 350 [facility] -[phone] Meds/Results Medications: Active Medications Generic Name Dose Route Start Last Admin Trade Name Freq PRN Reason Stop Dose Admin Acetaminophen 650 mg 01/04/20 15:50 01/06/20 06:32 Tylenol Tablet PO 650 mg Q6H PRN Administration Mild Pain (1-3) or Fever Atorvastatin Calcium 40 mg 01/04/20 21:00 01/10/20 20:14 Lipitor PO 40 mg HS LUCIANO Administration Dextrose 12.5 gm 01/04/20 17:07 Dextrose 50% Syringe IV PUSH PRN PRN Hypoglycemia Protocol Glucagon 1 mg 01/04/20 17:07 Glucagon For Inj IM PRN PRN Hypoglycemia Protocol Glucose 15 gm 01/04/20 17:07 Glutose 15 PO PRN PRN Hypoglycemia Protocol Heparin Sodium (Porcine) 7,000 units 01/10/20 13:32 Heparin Sodium IV PUSH PRN PRN aPTT less than 55 seconds Heparin Sodium (Porcine) 3,500 units 01/10/20 13:32 Heparin Sodium IV PUSH PRN PRN aPTT 55 - 70 seconds Dextrose 1,000 mls @ 100 mls/hr 01/04/20 17:07 Dextrose 5% 1,000 Ml IVPB PRN PRN Hypoglycemia Protocol Midazolam HCl 50 mg in 100 mls @ 4 mls/hr 01/10/20 04:35 01/11/20 05:29 Versed 50 Mg/D5w 100 Ml IV CONT 2 mg/hr .Q25H LUCIANO 4 mls/hr Titration Protocol 2 MG/HR Fentanyl Citrat
[2020-01-11] MEDS: methylPREDNISolone SOD SUCC 125 MG VIAL 100 MG IV PUSH (09:09)
--- NOTE | 2020-01-11 11:05 | PCDIET ---
ICU Rounding Note: Patient receiving Vital 1.5 at 40mL/hr with goal rate of 55mL/hr. Receiving Pro-Stat flush once daily to ensure estimated kcal/protein needs being met. Last recorded weight is 98.7kg. Recommend obtaining daily weights. Bowel Motility: BM x 2 on 01/10/20. Labs Reviewed: Glu (215), BUN (28), K (3.2), Alb (2.6) Meds Noted: Fentanyl, Novolog, Solu Medrol, Versed, Protonix, Mestinon, KCl Additional Notes: No documented skin breakdown. Recommend continuing to advance tube feeding as tolerated to goal rate. Following daily in ICU rounds. Assessing/reassessing every Wednesday/Wednesday.
--- NOTE | 2020-01-11 11:54 | WPDINTPN ---
Progress Note: A&P Assessment and Plan (1) Acute respiratory failure with hypoxia: Code(s): J96.01 - Acute respiratory failure with hypoxia Status: Acute Assessment and Plan: Acute respiratory failure secondary to positive COVID-19. Intubated on 01/10/2020 - Pt on presentation patient did not had many respiratory symptoms but over his hospital stay he has became hypoxic and over time hypoxia has worsened. - CT angiogram of lung was done yesterday to rule out PE and showed ground-glass opacities. chest x-ray done today showed worsening of infiltrates - 01/08 transferred to ICU and SARS-CoV-2 PCR positive - chest x-ray and ABGs reviewed, FiO2 weaned to 40%, peep of 12 - continue airborne, droplet and contact isolation. - Patient was started on Solu-Medrol 1 mg/kg daily for 5 days - following Troponin, LDH, D-Dimer, CRP, Procal, Ferritin periodically - infectious disease following the patientr - sedated with fentanyl and Versed infusion (2) Acute retention of urine: Code(s): R33.8 - Other retention of urine Status: Acute Assessment and Plan: Taken to OR 01/03 for cysto and underwent cautery. CBI post procedure and stopped yesterday as urine has cleared Plavix and anticoagulation on hold at this time as per urology Creatinine stable. Since creatinine stable urologist not going to pursue stent or nephrostomy tube (3) Prostate cancer: Code(s): C61 - Malignant neoplasm of prostate Status: Acute Assessment and Plan: Recurrent and blocking urethra. Was opened and new catheter placed. (4) Hydronephrosis: Code(s): N13.30 - Unspecified hydronephrosis Status: Acute Assessment and Plan: As above. Creatinine stable. - blocked ureter probable nonfunctioning kidney so no stent or nephrostomy tube planned per urology. (5) HTN (hypertension): Qualifiers: Hypertension type: essential hypertension Qualified Code(s): I10 - Essential (primary) hypertension Code(s): I10 - Essential (primary) hypertension Status: Acute Assessment and Plan: Blood pressure well controlled. hold p.o. blood pressure meds (6) Diabetes: Qualifiers: Diabetes mellitus type: type 2 Code(s): E11.9 - Type 2 diabetes mellitus without complications Status: Acute Assessment and Plan: patient is on sliding scale. (7) Anemia: Code(s): D64.9 - Anemia, unspecified Status: Acute Assessment and Plan: patient was transfuse 1 unit of packed RBCs on 01/04 For hemoglobin of 6.7. Likely related to hematuria - hemoglobin this morning is 7.0, will continue to monitor - will repeat CBC this afternoon and transfuse as needed (8) DVT (deep venous thrombosis): Code(s): I82.409 - Acute embolism and thrombosis of unspecified deep veins of unspecified lower extremity Status: Acute Assessment and Plan: Recent right lower extremity DVT and subsequent IVC filter placed approximately 14 day prior to admission, due to hematuria. CTA negative for PE. Echo ordered and pending - patient has been restarted heparin infusion on 01/10/2020 (9) Myasthenia gravis: Code(s): G70.00 - Myasthenia gravis without (acute) exacerbation Status: Acute Assessment and Plan: Stable. Continue pyridostigmine. patient is on Solu-Medrol Stress ulcer prophylaxis - PPI Nutrition - tolerating tube will discuss with family Code Status - Full Code Total Critical Care Time - 34 minutes Due to a high probability of clinically significant, life threatening deterioration, the patient required my highest level of preparedness to intervene emergently and I personally spent this critical care time directly and personally managing the patient. This critical care time included obtaining a history; examining the patient; pulse oximetry; ordering and review of studies; dez
[2020-01-11 12:50] LABS: Partial Thromboplastin Time 81.6 SECONDS (22.3-36.8)
--- NOTE | 2020-01-11 12:58 | PC.NURSE ---
0800 Pt's temp was noted to be 95.2 axillary. Room temp was 60 degrees F. Room temp turned up to 85 degrees F, warm blankets placed on patient. Temp rechecked an hour later at 1000 and noted to be 96.0 axillary
[2020-01-11] MEDS: HEPARIN SOD/D5W 100 UNITS/ML 25,000 UNITS/250 ML BAG 9 UNITS IV CONT (14:03)
[2020-01-11 14:05] LABS: Hematocrit 22.6 % (42.0-52.0); Mean Corpuscular HGB Conc 30.5 g/dl (32-36); Mean Corpuscular Hemoglobin 26.2 pg (26-34); Mean Corpuscular Volume 85.9 fl (80-100); Mean Platelet Volume 11.1 fl (7.4-10.4); Platelet Count Result 268 k/mm3 (150-375); Red Blood Count 2.63 M/mm3 (4.6-6.20); Red Cell Distribution Width 16.6 % (11.5-14.5); White Blood Count 6.5 K/mm3 (4.5-10.0)
[2020-01-11 14:09] LABS: Hemoglobin 6.9 g/dL (14.0-18.0)
--- NOTE | 2020-01-11 15:50 | WPDINFPN2 ---
Progress Note: A&P Assessment and Plan (1) Pneumonia due to COVID-19 virus: Code(s): U07.1 - COVID-19; J12.89 - Other viral pneumonia Status: Acute Assessment and Plan: 1. Prior fever and hypoxemia due to CoVid viral pneumonia. Hypothermia persists. 2. Chronic steroid, now on stress doses 3. Prostate cancer 4. DVT REC Remdesivir not available for several weeks minimum. off-label therapies should not be used outside of a clinical trial. On isolation. No sign of bacterial superinfection Subjective Date/time seen: 01/11/20 15:50 Interval history: intubated, no pressors, sedated Exam Narrative: Exam Narrative: hypothermic Const: General: no acute distress Resp: Effort & Inspection: normal respiratory effort Auscultation: rales Cardio: Rate: regular rate Rhythm: regular rhythm Heart sounds: no murmurs GI: Inspection: non-distended GI Palp: Yes Soft to palpation and No Tenderness to palpation present (GI) Urinary Catheter: Urinary Catheter: patent and draining and urine dark Objective Data Vital Signs Vital Signs: Vital Signs - 24 hr 01/10/20 15:56 01/10/20 16:00 01/10/20 16:40 Temperature 36.6 C Pulse Rate 75 73 74 Respiratory Rate 20 20 20 Blood Pressure 102/61 Pulse Oximetry 94 94 91 01/10/20 17:43 01/10/20 18:00 01/10/20 20:00 Temperature 36.4 C L 36.5 C Pulse Rate 76 65 73 Respiratory Rate 20 20 Blood Pressure 105/58 L 111/55 L Pulse Oximetry 95 94 97 01/10/20 20:08 01/10/20 22:00 01/10/20 23:08 Temperature Pulse Rate 72 81 79 Respiratory Rate 20 Blood Pressure 107/61 Pulse Oximetry 97 98 99 01/10/20 23:46 01/11/20 00:00 01/11/20 01:43 Temperature 36.5 C Pulse Rate 81 83 73 Respiratory Rate 20 20 Blood Pressure 124/65 Pulse Oximetry 99 97 97 01/11/20 02:00 01/11/20 03:58 01/11/20 04:00 Temperature 36.5 C Pulse Rate 72 73 70 Respiratory Rate 20 20 20 Blood Pressure 116/62 114/59 L Pulse Oximetry 97 97 98 01/11/20 05:15 01/11/20 05:57 01/11/20 06:00 Temperature Pulse Rate 72 69 69 Respiratory Rate 20 Blood Pressure 118/61 Pulse Oximetry 98 97 01/11/20 08:00 01/11/20 08:46 01/11/20 10:00 Temperature 35.1 C L 35.6 C L Pulse Rate 75 67 77 Respiratory Rate 20 20 Blood Pressure 134/64 124/64 Pulse Oximetry 97 97 99 01/11/20 10:45 01/11/20 12:00 01/11/20 14:00 Temperature 35.4 C L Pulse Rate 80 78 73 Respiratory Rate 20 20 Blood Pressure 130/64 116/62 Pulse Oximetry 98 97 97 01/11/20 14:36 Temperature Pulse Rate 71 Respiratory Rate Blood Pressure Pulse Oximetry 98 Intake/Output Intake/Output: Intake & Output 01/08/20 01/09/20 01/10/20 01/11/20 23:59 23:59 23:59 23:59 Intake Total 510 600 460 655 Output Total 1125 1500 775 350 Balance -618 -900 -315 305 Meds/Results Medications: Active Medications Generic Name Dose Route Start Last Admin Trade Name Freq PRN Reason Stop Dose Admin Acetaminophen 650 mg 01/04/20 15:50 01/06/20 06:32 Tylenol Tablet PO 650 mg Q6H PRN Administration Mild Pain (1-3) or Fever Atorvastatin Calcium 40 mg 01/04/20 21:00 01/10/20 20:14 Lipitor PO 40 mg HS LUCIANO Administration Dextrose 12.5 gm 01/04/20 17:07 Dextrose 50% Syringe IV PUSH PRN PRN Hypoglycemia Protocol Glucagon 1 mg 01/04/20 17:07 Glucagon For Inj IM PRN PRN Hypoglycemia Protocol Glucose 15 gm 01/04/20 17:07 Glutose 15 PO PRN PRN Hypoglycemia Protocol Heparin Sodium (Porcine) 7,000 units 01/10/20 13:32 Heparin Sodium IV PUSH PRN PRN aPTT less than 55 seconds Heparin Sodium (Porcine) 3,500 units 01/10/20 13:32 Heparin Sodium IV PUSH PRN PRN aPTT 55 - 70 seconds Dextrose 1,000 mls @ 100 mls/hr 01/04/20 17:07 Dextrose 5% 1,000 Ml IVPB PRN PRN Hypoglycemia Protocol Midazolam HCl 50 mg in 100 mls @ 4 mls/hr 01/10/20 04:35 01/11/20 14:00
--- NOTE | 2020-01-11 16:36 | PM.IMPN ---
Progress Note: A&P Assessment and Plan (1) Acute respiratory failure with hypoxia: Code(s): J96.01 - Acute respiratory failure with hypoxia Status: Acute Assessment and Plan: Patient with low-grade fever on 01/06/20. No chest x-ray on admission but CT of the abdomen did show the lower bases of the lungs that were relatively clear. Patient had been on 1-2 L during his hospitalization. On 01/07, however, he required 3 L prompting CTA of the chest showing moderate amount of ground-glass airspace opacities consistent with infection versus edema versus COVID but no PE. Oxygen requirement increased to 15 L non-rebreather with pH is 7.37, pCO2 of 44 and PO2 of 74 (AA gradient of 600). BNP 617. Lasix IV x1 was given and patient moved to ICU. DDimer 13, Ferritin 125, LDH 574, CRP>9. COVID positive. 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 Hypothermia most likely related to COVID. Continue supportive care. Wean O2 as tolerated. Add Azithromycin. (2) Acute retention of urine: Code(s): R33.8 - Other retention of urine Status: Acute Assessment and Plan: Taken to OR 01/03 for cysto and underwent cautery. CBI post procedure and stopped on 01/08/20 since urine had cleared. Plavix remains on hold. Creatinine stable 0.9. Since creatinine stable, urologist not placing stent or nephrostomy tubes at this time. (3) Prostate cancer: Code(s): C61 - Malignant neoplasm of prostate Status: Acute Assessment and Plan: Cysto on 01/03 showing marked regrowth of locally advanced, recurrence prostate carcinoma that is covering the bladder neck and trigone. He iunderwent clot evacuation. The ureteral orifice could not be located. Patient underwent extensive cauterization of the bladder neck with a rollerball electrode. Monitor closely for evidence of rebleeding. (4) Hydronephrosis: Code(s): N13.30 - Unspecified hydronephrosis Status: Acute Assessment and Plan: As above. Creatinine stable at 0.9 today. Patient with a blocked ureter probable with nonfunctioning kidney so no stent or nephrostomy tube planned per urology. Monitor renal function closely. (5) HTN (hypertension): Qualifiers: Hypertension type: essential hypertension Qualified Code(s): I10 - Essential (primary) hypertension Code(s): I10 - Essential (primary) hypertension Status: Acute Assessment and Plan: Blood pressure reviewed on 01/11/2020. Blood pressure well controlled. He has not required any pressor therapy. Amlodipine and metoprolol on hold. Continue to monitor. (6) Diabetes: Qualifiers: Diabetes mellitus type: type 2 Code(s): E11.9 - Type 2 diabetes mellitus without complications Status: Acute Assessment and Plan: Glucose reviewed on 01/11/2020. Glucose more elevated at times probably rlated to the steroids. Continue sliding scale protocol with frequent Accu-Cheks. Metformin remains on hold. (7) Anemia: Code(s): D64.9 - Anemia, unspecified Status: Acute Assessment and Plan: Hemoglobin 6.7 on admission related to acute blood loss anemia from the hematuria. Patient transfused 1 unit of packed cells 01/04. Hgb 7-8 range since transfusion but dropped to 6.9 today with plans for repeat transfusion. Continue to monitor closely on Heparin gtt. (8) DVT (deep venous thrombosis): Code(s): I82.409 - Acute embolism and thrombosis of unspecified deep veins of unspecified lower extremity Status: Acute Assessment and Plan: Recent right lower extremity DVT and subsequent IVC filter placed due to hematuria approximately 2 weeks prior to admission. Venous Doppler of left lower extremity negative on this admission here. CTA negative for PE. Currently on Heparin drip due to COVID. (9) Myasthenia gravis: Code(s): G70.00 - Myasthenia gravis without (acute) exacerbation
[2020-01-11 17:54] LABS: Glucose Point of Care 217 (65-105)
[2020-01-11 18:39] LABS: Partial Thromboplastin Time 68.5 SECONDS (22.3-36.8)
[2020-01-11] MEDS: HEPARIN SODIUM 5,000 UNITS/ML VIAL 3500 UNITS IV PUSH (18:48)
[2020-01-11] MEDS: ATORVASTATIN 40 MG TABLET PO (20:27)
[2020-01-11] MEDS: PANTOPRAZOLE 40 MG TABLET PO (20:27)
[2020-01-11 20:55] LABS: Glucose Point of Care 238 (65-105)
[2020-01-11] MEDS: SODIUM CHLORIDE 0.9% IV 250 ML 30 ML IV CONT (21:15)
[2020-01-12] VITALS (19 sets, daily range): BP systolic 115–144; BP diastolic 58–125; PULSE 65–94; RESP 19–25; TEMP 35.7–36.5; O2SAT 90–97
[2020-01-12 00:15] LABS: Glucose Point of Care 240 (65-105)
[2020-01-12 00:25] LABS: Partial Thromboplastin Time 166.9 SECONDS (22.3-36.8)
[2020-01-12 01:09] LABS: Hematocrit 25.5 % (42.0-52.0)
[2020-01-12 01:25] LABS: Partial Thromboplastin Time 134.6 SECONDS (22.3-36.8)
[2020-01-12 04:39] LABS: Carboxyhemoglobin 0.3 % THb (0-2.0); Fractional Inspired Oxygen 45 %; HCO3 ABG 21.8 mEq/l (22.0-26.0); Methemoglobin ABG 0.5 %THb (0-1.5); Oxygen Content ABG 11.8 %vol (16.0-22.0); Oxygen Saturation ABG 94.7 % (95.0-100.0); Oxyhemoglobin 93.3 % THb (90.0-100.0); PCO2 ABG 37.7 mmHg (35.0-45.0); PO2 FiO2 Ratio Arterial Blood 1.64 %; Reduced Hemoglobin 5.9 %THb (0-5.0); Total Hemoglobin 8.9 g/dL (12.0-18.0); pH ABG 7.379 (7.350-7.450)
[2020-01-12 04:41] LABS: Arterial Blood Gas PEEP 12 cmH2O; Arterial Blood Gas Tidal Volume 450 ml; Arterial Blood Gas Vent Mode CMV; Arterial Blood Gas Ventilator rate 20 /MIN; Device VENTILATOR; Modified Allen's Test Pass; Site Drawn RIGHT RADIAL
[2020-01-12 05:27] LABS: Hematocrit 26.1 % (42.0-52.0); Mean Corpuscular HGB Conc 30.7 g/dl (32-36); Mean Corpuscular Hemoglobin 26.7 pg (26-34); Platelet Count Result 290 k/mm3 (150-375)
[2020-01-12 05:36] LABS: Potassium 3.7 mmol/L (3.4-5.0)
[2020-01-12 05:37] LABS: D Dimer 1.54 ug/mL (<0.48)
[2020-01-12 05:40] LABS: Troponin I 0.013 ng/mL (0.000-0.034)
[2020-01-12 05:45] LABS: Alanine Aminotransferase 11 U/L (4-50); Albumin Level 2.6 g/dL (3.5-5.1); Alkaline Phosphatase 91 U/L (38-126); Aspartate Amino Transferase 24 U/L (17-59); Bilirubin,Total 0.2 mg/dL (0.2-1.3); Blood Urea Nitrogen 29 mg/dL (9-20); CRP 4.5 mg/dL (<1.0); Carbon Dioxide 26 mmol/L (22-30); Chloride 110 mmol/L (98-107); Estimated CRCL calculation 84 ml/min; Estimated Glomerular Filt Rate > 60; Glucose 171 mg/dL (75-110); Magnesium 2.2 mg/dL (1.6-2.3); Sodium 140 mmol/L (137-145)
[2020-01-12] MEDS: PYRIDOSTIGMINE BROMIDE 60 MG TABLET PO ×3 (06:34→20:16)
--- NOTE | 2020-01-12 07:48 | WPDUROPN2 ---
Progress Note: A&P Assessment and Plan (1) Gross hematuria: Code(s): R31.0 - Gross hematuria Status: Acute (2) Prostate cancer: Code(s): C61 - Malignant neoplasm of prostate Status: Acute Assessment and Plan: Urine remains clear following resumption of anticoagulation. Renal function stable/good. 01/12/2020 Nothing new, from our standpoint. Urine remains clear on anticoagualtion. Pt. has indwelling 3-way catheter - can easily resume CBI if hematuria recurs. Subjective Subjective Date/Time Seen: 01/12/20 07:48 Locally advanced prostate cancer Recurrent, intermittent hematuria DVT Covid-19 positive Review of Systems Review of Systems: ROS unobtainable: Yes unobtainable due to endotracheal tube Exam Urinary Catheter: Urinary Catheter: patent and draining and urine clear Objective Data Vital Signs Vital Signs: Vital Signs - 24 hr 01/11/20 08:00 01/11/20 08:46 01/11/20 10:00 Temperature 95.2 F L 96.0 F L Pulse Rate 75 67 77 Respiratory Rate 20 20 Blood Pressure 134/64 124/64 Pulse Oximetry 97 97 99 01/11/20 10:45 01/11/20 12:00 01/11/20 14:00 Temperature 95.8 F L Pulse Rate 80 78 73 Respiratory Rate 20 20 Blood Pressure 130/64 116/62 Pulse Oximetry 98 97 97 01/11/20 14:36 01/11/20 16:00 01/11/20 17:28 Temperature 96.6 F L Pulse Rate 71 78 81 Respiratory Rate 20 Blood Pressure 125/60 Pulse Oximetry 98 97 97 01/11/20 18:00 01/11/20 20:00 01/11/20 20:36 Temperature 97.6 F Pulse Rate 77 82 88 Respiratory Rate 20 20 Blood Pressure 120/59 L 127/60 Pulse Oximetry 97 97 97 01/11/20 21:11 01/11/20 21:30 01/11/20 22:00 Temperature 97.7 F 97.9 F Pulse Rate 88 89 83 Respiratory Rate 24 H 24 H 23 H Blood Pressure 129/61 120/61 112/62 Pulse Oximetry 96 96 97 01/11/20 22:30 01/11/20 23:04 01/11/20 23:30 Temperature 97.7 F 97.5 F L Pulse Rate 78 76 76 Respiratory Rate 22 H 23 H Blood Pressure 120/58 L 117/58 L Pulse Oximetry 97 97 97 01/11/20 23:43 01/12/20 00:00 01/12/20 02:00 Temperature 97.5 F L 97.5 F L Pulse Rate 81 81 83 Respiratory Rate 23 H 23 H 21 H Blood Pressure 121/62 129/69 131/63 Pulse Oximetry 97 97 96 01/12/20 02:29 01/12/20 04:00 01/12/20 04:23 Temperature 97.6 F Pulse Rate 76 79 75 Respiratory Rate 23 H Blood Pressure 121/67 Pulse Oximetry 97 93 95 01/12/20 06:00 Temperature Pulse Rate 80 Respiratory Rate 24 H Blood Pressure 119/58 L Pulse Oximetry 95 Intake/Output Intake/Output: Intake & Output 01/09/20 01/10/20 01/11/20 01/12/20 23:59 23:59 23:59 23:59 Intake Total 632 398 2056.6 760 Output Total 1500 775 700 350 Balance -900 -315 1423.6 410 Meds/Results Medications: Active Medications Generic Name Dose Route Start Last Admin Trade Name Freq PRN Reason Stop Dose Admin Acetaminophen 650 mg 01/04/20 15:50 01/06/20 06:32 Tylenol Tablet PO 650 mg Q6H PRN Administration Mild Pain (1-3) or Fever Atorvastatin Calcium 40 mg 01/04/20 21:00 01/11/20 20:27 Lipitor PO 40 mg HS LUCIANO Administration Dextrose 12.5 gm 01/04/20 17:07 Dextrose 50% Syringe IV PUSH PRN PRN Hypoglycemia Protocol Glucagon 1 mg 01/04/20 17:07 Glucagon For Inj IM PRN PRN Hypoglycemia Protocol Glucose 15 gm 01/04/20 17:07 Glutose 15 PO PRN PRN Hypoglycemia Protocol Heparin Sodium (Porcine) 7,000 units 01/10/20 13:32 Heparin Sodium IV PUSH PRN PRN aPTT less than 55 seconds Heparin Sodium (Porcine) 3,500 units 01/10/20 13:32 01/11/20 18:48 Heparin Sodium IV PUSH 3,500 units PRN PRN Administration aPTT 55 - 70 seconds Dextrose 1,000 mls @ 100 mls/hr 01/04/20 17:07 Dextrose 5% 1,000 Ml IVPB PRN PRN Hypoglycemia Protocol Midazolam HCl 50 mg in 100 mls @ 4 mls/hr 01/10/20 04:35 01/12/20 06:44 Versed 50 Mg/D5w 100 Ml IV CONT 2 mg/hr .Q25H LUCIANO
[2020-01-12] MEDS: methylPREDNISolone SOD SUCC 125 MG VIAL 100 MG IV PUSH (08:31)
[2020-01-12 08:41] LABS: Partial Thromboplastin Time 50.1 SECONDS (22.3-36.8)
--- NOTE | 2020-01-12 09:33 | PM.IMPN ---
Progress Note: A&P Assessment and Plan (1) Acute respiratory failure with hypoxia: Code(s): J96.01 - Acute respiratory failure with hypoxia Status: Acute Assessment and Plan: No chest x-ray on admission but CT of the abdomen on 01/02 did show the lower bases of the lungs that were relatively clear. Patient with fever on 01/06/20. Patient had been on 1-2 L during his hospitalization but up to 3L on 01/07 prompting CTA of the chest showing no PE but moderate amount of ground-glass airspace opacities consistent with infection versus edema versus COVID. Oxygen requirement increased to 15 L non-rebreather with pH is 7.37, pCO2 of 44 and PO2 of 74 (AA gradient of 600). BNP 617. Lasix IV x1 was given and patient moved to ICU. DDimer 13, Ferritin 125, LDH 574, CRP>9. COVID positive. 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 Hypothermia most likely related to COVID. Discussed with distresser. Continue steroids and Azithromycin to complete a 5 day course. Continue supportive care. Wean O2 as tolerated. (2) Pneumonia due to COVID-19 virus: Code(s): U07.1 - COVID-19; J12.89 - Other viral pneumonia Status: Acute Assessment and Plan: As above. Contineu supportive care. (3) Acute retention of urine: Code(s): R33.8 - Other retention of urine Status: Acute Assessment and Plan: Taken to OR 01/03 for cysto and underwent cautery. CBI post procedure and stopped on 01/08/20 since urine had cleared. Plavix remains on hold. Creatinine remains stable. Since creatinine stable, urologist not placing stent or nephrostomy tubes at this time. Contineu Henry. (4) Prostate cancer: Code(s): C61 - Malignant neoplasm of prostate Status: Acute Assessment and Plan: Cysto on 01/03 showing marked regrowth of locally advanced, recurrence prostate carcinoma that is covering the bladder neck and trigone. He iunderwent clot evacuation. The ureteral orifice could not be located. Patient underwent extensive cauterization of the bladder neck with a rollerball electrode. Monitor closely for evidence of rebleeding. (5) Hydronephrosis: Code(s): N13.30 - Unspecified hydronephrosis Status: Acute Assessment and Plan: As above. Creatinine stable at 0.8 today. Patient with a blocked ureter probable with nonfunctioning kidney so no stent or nephrostomy tube planned per urology. Monitor renal function closely. (6) HTN (hypertension): Qualifiers: Hypertension type: essential hypertension Qualified Code(s): I10 - Essential (primary) hypertension Code(s): I10 - Essential (primary) hypertension Status: Acute Assessment and Plan: Blood pressure reviewed on 01/12/2020. Blood pressure well controlled. He has not required any pressor therapy. Amlodipine and metoprolol on hold. Continue to monitor. (7) Diabetes: Qualifiers: Diabetes mellitus type: type 2 Code(s): E11.9 - Type 2 diabetes mellitus without complications Status: Acute Assessment and Plan: Glucose reviewed on 01/12/2020. Glucose more elevated at times related to the steroids. Continue sliding scale protocol with frequent Accu-Cheks. Metformin remains on hold. He only has one more day of steroids. (8) Anemia: Code(s): D64.9 - Anemia, unspecified Status: Acute Assessment and Plan: Hemoglobin 6.7 on admission related to acute blood loss anemia from the hematuria. Patient transfused 1 unit of packed cells 01/04. Hgb 7-8 range since transfusion but dropped to 6.9 today and 2nd unit transfused. Hgb up to 8 now. Continue to monitor closely on Heparin gtt. (9) DVT (deep venous thrombosis): Code(s): I82.409 - Acute embolism and thrombosis of unspecified deep veins of unspecified lower extremity Status: Acute Assessment and Plan: Recent right lower extremity DVT and subsequent IVC
--- NOTE | 2020-01-12 11:00 | PCDIET ---
Nutrition Follow-Up Complete: Nutrition Diagnosis: Inadequate oral intake related to oral intubation as evidenced by NPO status. Nutrition Goal: Patient to meet estimated nutritional needs. Goal met. Patient tolerating Vital 1.5 at goal rate of 55mL/hr with Pro-Stat flush 1x daily. Last recorded weight is 99.8 kg which is increased. +I/O. Bowel Motility: BM x 2 on 01/10/20. Labs Reviewed: Glu (171), BUN (29), Alb (2.6), Gibran Ca (8.12) Meds Noted: Zithromax, Protonix, Fentanyl, Solu Medrol, Mestinon, Novolog, Versed Additional Notes: No documented skin breakdown. Nutrition Monitoring and Evaluation: Follow up every Wednesday/Wednesday. Follow daily in ICU rounds.
--- NOTE | 2020-01-12 11:41 | WPDINTPN ---
Progress Note: A&P Assessment and Plan (1) Acute respiratory failure with hypoxia: Code(s): J96.01 - Acute respiratory failure with hypoxia Status: Acute Assessment and Plan: Acute respiratory failure secondary to positive COVID-19. Intubated on 01/10/2020 - Pt on presentation patient did not had many respiratory symptoms but over his hospital stay he has became hypoxic and over time hypoxia has worsened. - CT angiogram of lung was done yesterday to rule out PE and showed ground-glass opacities. chest x-ray done today showed worsening of infiltrates - 01/08 transferred to ICU and SARS-CoV-2 PCR positive - chest x-ray and ABGs reviewed, FiO2 weaned to 45%, peep of 12 - continue airborne, droplet and contact isolation. - Patient was started on Solu-Medrol 1 mg/kg daily for 5 days - following Troponin, LDH, D-Dimer, CRP, Procal, Ferritin periodically - infectious disease following the patient - sedated with fentanyl and Versed infusion (2) Acute retention of urine: Code(s): R33.8 - Other retention of urine Status: Acute Assessment and Plan: Taken to OR 01/03 for cysto and underwent cautery. CBI post procedure and stopped yesterday as urine has cleared Creatinine stable. Since creatinine stable urologist not going to pursue stent or nephrostomy tube (3) Prostate cancer: Code(s): C61 - Malignant neoplasm of prostate Status: Acute Assessment and Plan: Recurrent and blocking urethra. Was opened and new catheter placed. (4) Hydronephrosis: Code(s): N13.30 - Unspecified hydronephrosis Status: Acute Assessment and Plan: As above. Creatinine stable. - blocked ureter probable nonfunctioning kidney so no stent or nephrostomy tube planned per urology. (5) HTN (hypertension): Qualifiers: Hypertension type: essential hypertension Qualified Code(s): I10 - Essential (primary) hypertension Code(s): I10 - Essential (primary) hypertension Status: Acute Assessment and Plan: Blood pressure well controlled. hold p.o. blood pressure meds (6) Diabetes: Qualifiers: Diabetes mellitus type: type 2 Code(s): E11.9 - Type 2 diabetes mellitus without complications Status: Acute Assessment and Plan: patient is on sliding scale. (7) Anemia: Code(s): D64.9 - Anemia, unspecified Status: Acute Assessment and Plan: patient was transfuse 1 unit of packed RBCs on 01/04 For hemoglobin of 6.7. Likely related to hematuria - hemoglobin this morning is 7.0, will continue to monitor - Pt received 1 unit of PRBC (8) DVT (deep venous thrombosis): Code(s): I82.409 - Acute embolism and thrombosis of unspecified deep veins of unspecified lower extremity Status: Acute Assessment and Plan: Recent right lower extremity DVT and subsequent IVC filter placed approximately 14 day prior to admission, due to hematuria. CTA negative for PE. Echo ordered and pending - patient has been restarted heparin infusion on 01/10/2020 (9) Myasthenia gravis: Code(s): G70.00 - Myasthenia gravis without (acute) exacerbation Status: Acute Assessment and Plan: Stable. Continue pyridostigmine. patient is on Solu-Medrol Stress ulcer prophylaxis - PPI Nutrition - tolerating tube will discuss with family Code Status - Full Code Total Critical Care Time - 32 minutes Due to a high probability of clinically significant, life threatening deterioration, the patient required my highest level of preparedness to intervene emergently and I personally spent this critical care time directly and personally managing the patient. This critical care time included obtaining a history; examining the patient; pulse oximetry; ordering and review of studies; arranging urgent treatment with development of a management plan; evaluation of patient's response
[2020-01-12 12:07] LABS: Glucose Point of Care 189 (65-105)
[2020-01-12 15:24] LABS: Partial Thromboplastin Time 163.5 SECONDS (22.3-36.8)
[2020-01-12 15:56] LABS: Partial Thromboplastin Time 157.8 SECONDS (22.3-36.8)
--- NOTE | 2020-01-12 17:06 | WPDINFPN2 ---
Progress Note: A&P Assessment and Plan (1) Pneumonia due to COVID-19 virus: Code(s): U07.1 - COVID-19; J12.89 - Other viral pneumonia Status: Acute Assessment and Plan: 1. Prior fever and hypoxemia due to CoVid viral pneumonia. Temperatures normalized. 2. Chronic steroid, now on stress doses 3. Prostate cancer 4. DVT REC Remdesivir not available for several weeks minimum. off-label therapies should not be used outside of a clinical trial. On isolation. No sign of bacterial superinfection Subjective Date/time seen: 01/12/20 17:06 Interval history: sedated and intubated Exam Narrative: Exam Narrative: afebrile Const: General: no acute distress Resp: Effort & Inspection: normal respiratory effort Auscultation: clear to auscultation bilaterally Cardio: Rate: regular rate Rhythm: regular rhythm Heart sounds: no murmurs GI: Inspection: non-distended GI Palp: Yes Soft to palpation and No Tenderness to palpation present (GI) Urinary Catheter: Urinary Catheter: patent and draining and urine clear Skin: General skin exam: no rashes or lesions noted Objective Data Vital Signs Vital Signs: Vital Signs - 24 hr 01/11/20 17:28 01/11/20 18:00 01/11/20 20:00 Temperature 36.4 C Pulse Rate 81 77 82 Respiratory Rate 20 20 Blood Pressure 120/59 L 127/60 Pulse Oximetry 97 97 97 01/11/20 20:36 01/11/20 21:11 01/11/20 21:30 Temperature 36.5 C 36.6 C Pulse Rate 88 88 89 Respiratory Rate 24 H 24 H Blood Pressure 129/61 120/61 Pulse Oximetry 97 96 96 01/11/20 22:00 01/11/20 22:30 01/11/20 23:04 Temperature 36.5 C Pulse Rate 83 78 76 Respiratory Rate 23 H 22 H Blood Pressure 112/62 120/58 L Pulse Oximetry 97 97 97 01/11/20 23:30 01/11/20 23:43 01/12/20 00:00 Temperature 36.4 C L 36.4 C L 36.4 C L Pulse Rate 76 81 81 Respiratory Rate 23 H 23 H 23 H Blood Pressure 117/58 L 121/62 129/69 Pulse Oximetry 97 97 97 01/12/20 02:00 01/12/20 02:29 01/12/20 04:00 Temperature 36.4 C Pulse Rate 83 76 79 Respiratory Rate 21 H 23 H Blood Pressure 131/63 121/67 Pulse Oximetry 96 97 93 01/12/20 04:23 01/12/20 06:00 01/12/20 08:00 Temperature 36.5 C Pulse Rate 75 80 94 Respiratory Rate 24 H 25 H Blood Pressure 119/58 L 144/125 H Pulse Oximetry 95 95 95 01/12/20 08:57 01/12/20 10:00 01/12/20 12:00 Temperature 36.5 C Pulse Rate 83 74 71 Respiratory Rate 23 H 20 Blood Pressure 122/62 130/67 Pulse Oximetry 90 94 97 01/12/20 12:45 01/12/20 14:00 01/12/20 16:00 Temperature 36.4 C Pulse Rate 86 68 66 Respiratory Rate 20 19 Blood Pressure 120/60 125/65 Pulse Oximetry 93 96 94 Intake/Output Intake/Output: Intake & Output 01/09/20 01/10/20 01/11/20 01/12/20 23:59 23:59 23:59 23:59 Intake Total 766 197 5084.6 760 Output Total 1500 775 700 350 Balance -900 -315 1423.6 410 Meds/Results Medications: Active Medications Generic Name Dose Route Start Last Admin Trade Name Freq PRN Reason Stop Dose Admin Acetaminophen 650 mg 01/04/20 15:50 01/06/20 06:32 Tylenol Tablet PO 650 mg Q6H PRN Administration Mild Pain (1-3) or Fever Atorvastatin Calcium 40 mg 01/04/20 21:00 01/11/20 20:27 Lipitor PO 40 mg HS LUCIANO Administration Dextrose 12.5 gm 01/04/20 17:07 Dextrose 50% Syringe IV PUSH PRN PRN Hypoglycemia Protocol Glucagon 1 mg 01/04/20 17:07 Glucagon For Inj IM PRN PRN Hypoglycemia Protocol Glucose 15 gm 01/04/20 17:07 Glutose 15 PO PRN PRN Hypoglycemia Protocol Heparin Sodium (Porcine) 7,000 units 01/10/20 13:32 Heparin Sodium IV PUSH PRN PRN aPTT less than 55 seconds Heparin Sodium (Porcine) 3,500 units 01/10/20 13:32 01/11/20 18:48 Heparin Sodium IV PUSH 3,500 units PRN PRN Administration aPTT 55 - 70 seconds Dextrose 1,000 mls @ 100 mls/hr 01/04/20 17:07 Dextrose 5% 1,000 Ml IVPB PRN PRN Hypoglycem
[2020-01-12 17:40] LABS: Glucose Point of Care 258 (65-105)
[2020-01-12] MEDS: INSULIN ASPART (*BKC) 100 UNITS/ML SUB-Q ×2 (18:23→23:42)
[2020-01-12] MEDS: HEPARIN SOD/D5W 100 UNITS/ML 25,000 UNITS/250 ML BAG 8 UNITS IV CONT (18:24)
[2020-01-12] MEDS: ATORVASTATIN 40 MG TABLET PO (20:16)
[2020-01-12] MEDS: PANTOPRAZOLE 40 MG TABLET PO (20:16)
[2020-01-12 23:38] LABS: Glucose Point of Care 207 (65-105)
[2020-01-13] VITALS (23 sets, daily range): BP systolic 111–136; BP diastolic 60–72; PULSE 57–77; RESP 20–23; TEMP 35.5–37; O2SAT 90–100
[2020-01-13] MEDS: HEPARIN SODIUM 5,000 UNITS/ML VIAL 3500 UNITS IV PUSH ×2 (01:03→14:45)
[2020-01-13 05:06] LABS: Hematocrit 26.1 % (42.0-52.0); Hemoglobin 7.9 g/dL (14.0-18.0); Mean Corpuscular HGB Conc 30.3 g/dl (32-36); Mean Corpuscular Hemoglobin 26.4 pg (26-34); Mean Corpuscular Volume 87.3 fl (80-100); Platelet Count Result 296 k/mm3 (150-375); Red Blood Count 2.99 M/mm3 (4.6-6.20); Red Cell Distribution Width 16.3 % (11.5-14.5); White Blood Count 6.8 K/mm3 (4.5-10.0)
[2020-01-13 05:06] LABS: Alveolar/Arterial O2 Gradient 242.3 mmHg; Base Excess ABG -1.2 mEq/l (+/-2.0); Carboxyhemoglobin 0.1 % THb (0-2.0); Device VENTILATOR; Fractional Inspired Oxygen 50 %; HCO3 ABG 25.1 mEq/l (22.0-26.0); Methemoglobin ABG 0.4 %THb (0-1.5); Modified Allen's Test Pass; Oxygen Saturation ABG 89.3 % (95.0-100.0); Oxyhemoglobin 89.1 % THb (90.0-100.0); PCO2 ABG 48.1 mmHg (35.0-45.0); PO2 ABG 60.1 mmHg (80.0-100.0); Reduced Hemoglobin 10.4 %THb (0-5.0); Site Drawn RIGHT RADIAL; Total Hemoglobin 13.6 g/dL (12.0-18.0); pH ABG 7.335 (7.350-7.450)
[2020-01-13 05:07] LABS: Arterial Blood Gas PEEP 12 cmH2O; Arterial Blood Gas Tidal Volume 450 ml; Arterial Blood Gas Vent Mode CMV; Arterial Blood Gas Ventilator rate 20 /MIN
[2020-01-13 05:19] LABS: D Dimer 1.46 ug/mL (<0.48)
[2020-01-13 05:21] LABS: Alanine Aminotransferase 10 U/L (4-50); Albumin Level 2.8 g/dL (3.5-5.1); Alkaline Phosphatase 100 U/L (38-126); Aspartate Amino Transferase 20 U/L (17-59); Bilirubin,Total 0.2 mg/dL (0.2-1.3); Blood Urea Nitrogen 28 mg/dL (9-20); CRP 3.3 mg/dL (<1.0); Carbon Dioxide 27 mmol/L (22-30); Chloride 109 mmol/L (98-107); Estimated CRCL calculation 95 ml/min; Estimated Glomerular Filt Rate > 60; Glucose 176 mg/dL (75-110); Lactate Dehydrogenase 565 U/L (313-618); Magnesium 2.3 mg/dL (1.6-2.3); Sodium 141 mmol/L (137-145)
[2020-01-13 05:30] LABS: Troponin I < 0.012 ng/mL (0.000-0.034)
[2020-01-13] MEDS: PYRIDOSTIGMINE BROMIDE 60 MG TABLET PO ×3 (05:43→19:48)
[2020-01-13 07:57] LABS: Partial Thromboplastin Time 112.3 SECONDS (22.3-36.8)
[2020-01-13] MEDS: methylPREDNISolone SOD SUCC 125 MG VIAL 100 MG IV PUSH (08:36)
[2020-01-13] MEDS: FUROSEMIDE INJ 40 MG/4 ML VIAL IV PUSH (08:47)
--- NOTE | 2020-01-13 09:43 | WPDINTPN ---
Progress Note: A&P Assessment and Plan (1) Acute respiratory failure with hypoxia: Code(s): J96.01 - Acute respiratory failure with hypoxia Status: Acute Assessment and Plan: Acute respiratory failure secondary to positive COVID-19. Intubated on 01/10/2020 - Pt on presentation patient did not had many respiratory symptoms but over his hospital stay he has became hypoxic and over time hypoxia has worsened. - CT angiogram of lung on 01/08/2020: No pulmonary embolism, moderate amount of ground- glass opacities were seen. - 01/08 transferred to ICU and SARS-CoV-2 PCR positive - Chest x-ray shows stable diffuse bilateral disease, ABGs reviewed, continue CMV mode of ventilation, will increase FiO2 50% and tidal volume to 500 mL, peep of 12. - continue airborne, droplet and contact isolation. - Patient has 5 day coursecourse of Solu-Medrol 1 mg/kg/day - following Troponin, LDH, D-Dimer, CRP, Procal, Ferritin periodically - infectious disease following the patient - sedated with fentanyl and Versed infusion, sedation vacation per protocol (2) Acute retention of urine: Code(s): R33.8 - Other retention of urine Status: Acute Assessment and Plan: Taken to OR 01/03 for cysto and underwent cautery. CBI post procedure and stopped yesterday as urine has cleared Creatinine stable. Since creatinine stable urologist not going to pursue stent or nephrostomy tube (3) Prostate cancer: Code(s): C61 - Malignant neoplasm of prostate Status: Acute Assessment and Plan: Recurrent and blocking urethra. Was opened and new catheter placed. (4) Hydronephrosis: Code(s): N13.30 - Unspecified hydronephrosis Status: Acute Assessment and Plan: As above. Creatinine stable. - blocked ureter probable nonfunctioning kidney so no stent or nephrostomy tube planned per urology. (5) HTN (hypertension): Qualifiers: Hypertension type: essential hypertension Qualified Code(s): I10 - Essential (primary) hypertension Code(s): I10 - Essential (primary) hypertension Status: Acute Assessment and Plan: Blood pressure well controlled. hold p.o. blood pressure meds (6) Diabetes: Qualifiers: Diabetes mellitus type: type 2 Code(s): E11.9 - Type 2 diabetes mellitus without complications Status: Acute Assessment and Plan: patient is on sliding scale. (7) Anemia: Code(s): D64.9 - Anemia, unspecified Status: Acute Assessment and Plan: patient was transfuse 1 unit of packed RBCs on 01/04 For hemoglobin of 6.7. Likely related to hematuria - patient also received a unit of packed RBCs on 01/11/2020 - hemoglobin remains stable (8) DVT (deep venous thrombosis): Code(s): I82.409 - Acute embolism and thrombosis of unspecified deep veins of unspecified lower extremity Status: Acute Assessment and Plan: Recent right lower extremity DVT and subsequent IVC filter placed approximately 14 day prior to admission, due to hematuria. CTA negative for PE. - echocardiogram on 01/10/2020 showed EF of 60-65% with normal LV systolic function. Mild pulmonary hypertension with RVSP of 40 mmHg avoid to moderate pulmonary regurgitation. - continue heparin infusion which was restarted on 01/10/2020 (9) Myasthenia gravis: Code(s): G70.00 - Myasthenia gravis without (acute) exacerbation Status: Acute Assessment and Plan: Stable. Continue pyridostigmine. Status post steroids Stress ulcer prophylaxis - PPI Nutrition - tolerating tube will discuss with family Code Status - Full Code Total Critical Care Time - 32 minutes Due to a high probability of clinically significant, life threatening deterioration, the patient required my highest level of preparedness to intervene emergently and I personally spent this critical care time directly an
[2020-01-13] MEDS: INSULIN ASPART (*BKC) 100 UNITS/ML SUB-Q ×2 (11:26→17:17)
[2020-01-13 11:31] LABS: Glucose Point of Care 241 (65-105)
[2020-01-13 14:39] LABS: Partial Thromboplastin Time 55.2 SECONDS (22.3-36.8)
[2020-01-13 17:39] LABS: Glucose Point of Care 284 (65-105)
--- NOTE | 2020-01-13 17:43 | PM.IMPN ---
Progress Note: A&P Assessment and Plan (1) Acute respiratory failure with hypoxia: Code(s): J96.01 - Acute respiratory failure with hypoxia Status: Acute Assessment and Plan: No chest x-ray on admission but CT of the abdomen on 01/02 did show the lower bases of the lungs that were relatively clear. Patient with fever on 01/06/20. Patient had been on 1-2 L during his hospitalization but up to 3L on 01/07 prompting CTA of the chest showing no PE but moderate amount of ground-glass airspace opacities consistent with infection versus edema versus COVID. Oxygen requirement increased to 15 L non-rebreather with pH is 7.37, pCO2 of 44 and PO2 of 74 (AA gradient of 600). BNP 617. Lasix IV x1 was given and patient moved to ICU. DDimer 13, Ferritin 125, LDH 574, CRP>9. COVID positive. 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 Hypothermia most likely related to COVID. Discussed with employee operations examiner. Continue steroids and Azithromycin to complete a 5 day course. Continue supportive care. Wean O2 as tolerated. 01/13/20 17:43 Patient is 74-year-old male with history of Matthinias gravis, as well as history of prostate cancer initially presented to the ER for urinary retention patient was seen by urologist, while in the hospital patient became hypoxic requiring more and more oxygen he was intubated and was found to positive for COVID-19 currently patient on vent unable to provide any review of symptoms, patient is seen by employee operations examiner and Dr. steel, does not recommend any antibiotics as the pneumonia as while and no experimental medications are available ait present time, patient with history Matthinias gravis he was started steroid 1 milligram/kilogram today patient completed his 5 day course. (2) Pneumonia due to COVID-19 virus: Code(s): U07.1 - COVID-19; J12.89 - Other viral pneumonia Status: Acute Assessment and Plan: As above. Contineu supportive care. (3) Acute retention of urine: Code(s): R33.8 - Other retention of urine Status: Acute Assessment and Plan: Taken to OR 01/03 for cysto and underwent cautery. CBI post procedure and stopped on 01/08/20 since urine had cleared. Plavix remains on hold. Creatinine remains stable. Since creatinine stable, urologist not placing stent or nephrostomy tubes at this time. Contineu Henry. (4) Prostate cancer: Code(s): C61 - Malignant neoplasm of prostate Status: Acute Assessment and Plan: Cysto on 01/03 showing marked regrowth of locally advanced, recurrence prostate carcinoma that is covering the bladder neck and trigone. He iunderwent clot evacuation. The ureteral orifice could not be located. Patient underwent extensive cauterization of the bladder neck with a rollerball electrode. Monitor closely for evidence of rebleeding. (5) Hydronephrosis: Code(s): N13.30 - Unspecified hydronephrosis Status: Acute Assessment and Plan: As above. Creatinine stable at 0.8 today. Patient with a blocked ureter probable with nonfunctioning kidney so no stent or nephrostomy tube planned per urology. Monitor renal function closely. (6) HTN (hypertension): Qualifiers: Hypertension type: essential hypertension Qualified Code(s): I10 - Essential (primary) hypertension Code(s): I10 - Essential (primary) hypertension Status: Acute Assessment and Plan: Blood pressure reviewed on 01/12/2020. Blood pressure well controlled. He has not required any pressor therapy. Amlodipine and metoprolol on hold. Continue to monitor. (7) Diabetes: Qualifiers: Diabetes mellitus type: type 2 Code(s): E11.9 - Type 2 diabetes mellitus without complications Status: Acute Assessment and Plan: Glucose reviewed on 01/12/2020. Glucose more elevated at times related to the steroids. Continue sliding scale protocol with frequent Accu-Cheks. Metformin
[2020-01-13] MEDS: ATORVASTATIN 40 MG TABLET PO (19:48)
[2020-01-13] MEDS: ENOXAPARIN 100 MG/ML SYRINGE SUB-Q (19:48)
[2020-01-13] MEDS: PANTOPRAZOLE 40 MG TABLET PO (19:48)
[2020-01-13 23:20] LABS: Glucose Point of Care 185 (65-105)
[2020-01-14] VITALS (21 sets, daily range): BP systolic 104–131; BP diastolic 54–67; PULSE 53–85; RESP 20; TEMP 35.5–37.1; O2SAT 90–100
[2020-01-14 04:58] LABS: Alveolar/Arterial O2 Gradient 256.5 mmHg; Carboxyhemoglobin 0.3 % THb (0-2.0); Fractional Inspired Oxygen 50 %; HCO3 ABG 26.9 mEq/l (22.0-26.0); Methemoglobin ABG 0.5 %THb (0-1.5); Modified Allen's Test Unable to perform; Oxygen Content ABG 10.6 %vol (16.0-22.0); Oxygen Saturation ABG 91.4 % (95.0-100.0); Oxyhemoglobin 89.6 % THb (90.0-100.0); PCO2 ABG 38.1 mmHg (35.0-45.0); PO2 ABG 57.1 mmHg (80.0-100.0); PO2 FiO2 Ratio Arterial Blood 1.14 %; Reduced Hemoglobin 9.6 %THb (0-5.0); Site Drawn RIGHT RADIAL; Total Hemoglobin 8.4 g/dL (12.0-18.0); pH ABG 7.466 (7.350-7.450)
[2020-01-14 04:59] LABS: Arterial Blood Gas PEEP 12 cmH2O; Arterial Blood Gas Tidal Volume 500 ml; Arterial Blood Gas Vent Mode CMV; Arterial Blood Gas Ventilator rate 20 /MIN; Device VENTILATOR
[2020-01-14] MEDS: PYRIDOSTIGMINE BROMIDE 60 MG TABLET PO ×3 (06:03→22:43)
[2020-01-14 06:17] LABS: Hematocrit 24.5 % (42.0-52.0); Hemoglobin 7.5 g/dL (14.0-18.0); Mean Corpuscular HGB Conc 30.6 g/dl (32-36); Mean Corpuscular Hemoglobin 26.4 pg (26-34); Mean Corpuscular Volume 86.3 fl (80-100); Mean Platelet Volume 10.9 fl (7.4-10.4); Platelet Count Result 294 k/mm3 (150-375); Red Blood Count 2.84 M/mm3 (4.6-6.20); Red Cell Distribution Width 16.5 % (11.5-14.5); White Blood Count 5.9 K/mm3 (4.5-10.0)
[2020-01-14 06:29] LABS: D Dimer 1.43 ug/mL (<0.48)
[2020-01-14 06:32] LABS: Potassium 3.9 mmol/L (3.4-5.0)
[2020-01-14 06:40] LABS: Alanine Aminotransferase 10 U/L (4-50); Albumin Level 2.6 g/dL (3.5-5.1); Alkaline Phosphatase 102 U/L (38-126); Aspartate Amino Transferase 19 U/L (17-59); Bilirubin,Total 0.2 mg/dL (0.2-1.3); Blood Urea Nitrogen 32 mg/dL (9-20); CRP 5.9 mg/dL (<1.0); Carbon Dioxide 29 mmol/L (22-30); Chloride 108 mmol/L (98-107); Estimated CRCL calculation 95 ml/min; Estimated Glomerular Filt Rate > 60; Glucose 181 mg/dL (75-110); Magnesium 2.4 mg/dL (1.6-2.3); Sodium 137 mmol/L (137-145)
[2020-01-14 06:42] LABS: Troponin I < 0.012 ng/mL (0.000-0.034)
--- NOTE | 2020-01-14 09:32 | WPDINTPN ---
Progress Note: A&P Assessment and Plan (1) Acute respiratory failure with hypoxia: Code(s): J96.01 - Acute respiratory failure with hypoxia Status: Acute Assessment and Plan: Acute respiratory failure secondary to positive COVID-19. Intubated on 01/10/2020 - Pt on presentation patient did not had many respiratory symptoms but over his hospital stay he has became hypoxic and over time hypoxia has worsened. - CT angiogram of lung on 01/08/2020: No pulmonary embolism, moderate amount of ground- glass opacities were seen. - 01/08 transferred to ICU and SARS-CoV-2 PCR positive - Chest x-ray shows stable diffuse bilateral disease, ABGs reviewed, continue CMV mode of ventilation, will increase FiO2 50% and tidal volume to 500 mL, peep of 12. - continue airborne, droplet and contact isolation. - Patient has 5 day coursecourse of Solu-Medrol 1 mg/kg/day - following Troponin, LDH, D-Dimer, CRP, Procal, Ferritin periodically - infectious disease following the patient - sedated with fentanyl and Versed infusion, sedation vacation per protocol (2) Acute retention of urine: Code(s): R33.8 - Other retention of urine Status: Acute Assessment and Plan: Taken to OR 01/03 for cysto and underwent cautery. CBI post procedure and stopped yesterday as urine has cleared Creatinine stable. Since creatinine stable urologist not going to pursue stent or nephrostomy tube (3) Prostate cancer: Code(s): C61 - Malignant neoplasm of prostate Status: Acute Assessment and Plan: Recurrent and blocking urethra. Was opened and new catheter placed. (4) Hydronephrosis: Code(s): N13.30 - Unspecified hydronephrosis Status: Acute Assessment and Plan: As above. Creatinine stable. - blocked ureter probable nonfunctioning kidney so no stent or nephrostomy tube planned per urology. (5) HTN (hypertension): Qualifiers: Hypertension type: essential hypertension Qualified Code(s): I10 - Essential (primary) hypertension Code(s): I10 - Essential (primary) hypertension Status: Acute Assessment and Plan: Blood pressure well controlled. hold p.o. blood pressure meds (6) Diabetes: Qualifiers: Diabetes mellitus type: type 2 Code(s): E11.9 - Type 2 diabetes mellitus without complications Status: Acute Assessment and Plan: patient is on sliding scale. (7) Anemia: Qualifiers: Anemia type: other cause Other causes of anemia: acute posthemorrhagic Qualified Code(s): D62 - Acute posthemorrhagic anemia Code(s): D64.9 - Anemia, unspecified Status: Acute Assessment and Plan: patient was transfuse 1 unit of packed RBCs on 01/04 For hemoglobin of 6.7. Likely related to hematuria - patient also received a unit of packed RBCs on 01/11/2020 - hemoglobin remains stable (8) DVT (deep venous thrombosis): Code(s): I82.409 - Acute embolism and thrombosis of unspecified deep veins of unspecified lower extremity Status: Acute Assessment and Plan: Recent right lower extremity DVT and subsequent IVC filter placed approximately 14 day prior to admission, due to hematuria. CTA negative for PE. - echocardiogram on 01/10/2020 showed EF of 60-65% with normal LV systolic function. Mild pulmonary hypertension with RVSP of 40 mmHg avoid to moderate pulmonary regurgitation. - right lower extremity venous Dopplers done on 01/13/2020: No lower extremity DVT - discontinued print infusion, started patient on Lovenox 1 mg /kg q.day (9) Myasthenia gravis: Code(s): G70.00 - Myasthenia gravis without (acute) exacerbation Status: Acute Assessment and Plan: Stable. Continue pyridostigmine. Status post steroids Stress ulcer prophylaxis - PPI Nutrition - tolerating tube will discuss with family Code Status - Full Code Total Critic
[2020-01-14] MEDS: polyethylene glycoL 3350 17 GM POWD.PACK PO (09:50)
[2020-01-14] MEDS: FUROSEMIDE INJ 40 MG/4 ML VIAL IV PUSH (09:50)
[2020-01-14] MEDS: INSULIN ASPART (*BKC) 100 UNITS/ML SUB-Q (12:16)
[2020-01-14 15:20] LABS: Glucose Point of Care 224 (65-105)
--- NOTE | 2020-01-14 16:41 | PM.IMPN ---
Progress Note: A&P Assessment and Plan (1) Acute respiratory failure with hypoxia: Code(s): J96.01 - Acute respiratory failure with hypoxia Status: Acute Assessment and Plan: No chest x-ray on admission but CT of the abdomen on 01/02 did show the lower bases of the lungs that were relatively clear. Patient with fever on 01/06/20. Patient had been on 1-2 L during his hospitalization but up to 3L on 01/07 prompting CTA of the chest showing no PE but moderate amount of ground-glass airspace opacities consistent with infection versus edema versus COVID. Oxygen requirement increased to 15 L non-rebreather with pH is 7.37, pCO2 of 44 and PO2 of 74 (AA gradient of 600). BNP 617. Lasix IV x1 was given and patient moved to ICU. DDimer 13, Ferritin 125, LDH 574, CRP>9. COVID positive. 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 Hypothermia most likely related to COVID. Discussed with blood bank specialist. Continue steroids and Azithromycin to complete a 5 day course. Continue supportive care. Wean O2 as tolerated. 01/14/20 16:41 Patient is 74-year-old male with history of Matthinias gravis, as well as history of prostate cancer initially presented to the ER for urinary retention patient was seen by urologist, while in the hospital patient became hypoxic requiring more and more oxygen he was intubated and was found to positive for COVID-19 currently patient on vent unable to provide any review of symptoms, patient is seen by blood bank specialist and Dr. steel, does not recommend any antibiotics as the pneumonia as while and no experimental medications are available ait present time, patient with history Matthinias gravis he was started steroid 1 milligram/kilogram on 01/12 patient completed his 5 day course. Patient remained clinically stable on ventilator (2) Pneumonia due to COVID-19 virus: Code(s): U07.1 - COVID-19; J12.89 - Other viral pneumonia Status: Acute Assessment and Plan: As above. Contineu supportive care. (3) Acute retention of urine: Code(s): R33.8 - Other retention of urine Status: Acute Assessment and Plan: Taken to OR 01/03 for cysto and underwent cautery. CBI post procedure and stopped on 01/08/20 since urine had cleared. Plavix remains on hold. Creatinine remains stable. Since creatinine stable, urologist not placing stent or nephrostomy tubes at this time. Contineu Henry. (4) Prostate cancer: Code(s): C61 - Malignant neoplasm of prostate Status: Acute Assessment and Plan: Cysto on 01/03 showing marked regrowth of locally advanced, recurrence prostate carcinoma that is covering the bladder neck and trigone. He iunderwent clot evacuation. The ureteral orifice could not be located. Patient underwent extensive cauterization of the bladder neck with a rollerball electrode. Monitor closely for evidence of rebleeding. (5) Hydronephrosis: Code(s): N13.30 - Unspecified hydronephrosis Status: Acute Assessment and Plan: As above. Creatinine stable at 0.8 today. Patient with a blocked ureter probable with nonfunctioning kidney so no stent or nephrostomy tube planned per urology. Monitor renal function closely. (6) HTN (hypertension): Qualifiers: Hypertension type: essential hypertension Qualified Code(s): I10 - Essential (primary) hypertension Code(s): I10 - Essential (primary) hypertension Status: Acute Assessment and Plan: Blood pressure reviewed on 01/12/2020. Blood pressure well controlled. He has not required any pressor therapy. Amlodipine and metoprolol on hold. Continue to monitor. (7) Diabetes: Qualifiers: Diabetes mellitus type: type 2 Code(s): E11.9 - Type 2 diabetes mellitus without complications Status: Acute Assessment and Plan: Glucose reviewed on 01/12/2020. Glucose more elevated at times related to the steroids. Continue sliding
[2020-01-14 18:30] LABS: Glucose Point of Care 185 (65-105)
[2020-01-14] MEDS: ATORVASTATIN 40 MG TABLET PO (20:17)
[2020-01-14] MEDS: ENOXAPARIN 100 MG/ML SYRINGE SUB-Q (20:22)
[2020-01-15] VITALS (18 sets, daily range): BP systolic 108–152; BP diastolic 58–75; PULSE 80–102; RESP 20–24; TEMP 37.1–38; O2SAT 91–98
[2020-01-15 00:05] LABS: Glucose Point of Care 167 (65-105)
[2020-01-15 04:50] LABS: Alveolar/Arterial O2 Gradient 184.5 mmHg; Base Excess ABG 2.9 mEq/l (+/-2.0); Carboxyhemoglobin 0.2 % THb (0-2.0); Fractional Inspired Oxygen 40 %; HCO3 ABG 26.8 mEq/l (22.0-26.0); Methemoglobin ABG 0.6 %THb (0-1.5); Oxygen Content ABG 10.8 %vol (16.0-22.0); Oxyhemoglobin 89.1 % THb (90.0-100.0); PCO2 ABG 38.5 mmHg (35.0-45.0); PO2 ABG 56.4 mmHg (80.0-100.0); PO2 FiO2 Ratio Arterial Blood 1.41 %; Reduced Hemoglobin 10.1 %THb (0-5.0); Total Hemoglobin 8.6 g/dL (12.0-18.0); pH ABG 7.461 (7.350-7.450)
[2020-01-15 04:51] LABS: Hematocrit 24.7 % (42.0-52.0); Hemoglobin 7.7 g/dL (14.0-18.0); Mean Corpuscular HGB Conc 31.2 g/dl (32-36); Mean Corpuscular Hemoglobin 26.7 pg (26-34); Mean Corpuscular Volume 85.8 fl (80-100); Mean Platelet Volume 10.3 fl (7.4-10.4); Platelet Count Result 292 k/mm3 (150-375); Red Blood Count 2.88 M/mm3 (4.6-6.20); Red Cell Distribution Width 16.9 % (11.5-14.5); White Blood Count 4.9 K/mm3 (4.5-10.0)
[2020-01-15 05:00] LABS: Device VENTILATOR; Modified Allen's Test Unable to perform; Site Drawn LEFT RADIAL
[2020-01-15 05:01] LABS: Arterial Blood Gas PEEP 12 cmH2O; Arterial Blood Gas Tidal Volume 480 ml; Arterial Blood Gas Vent Mode CMV; Arterial Blood Gas Ventilator rate 20 /MIN
[2020-01-15 05:04] LABS: D Dimer 2.38 ug/mL (<0.48)
[2020-01-15 05:13] LABS: Alanine Aminotransferase 10 U/L (4-50); Albumin Level 2.5 g/dL (3.5-5.1); Alkaline Phosphatase 106 U/L (38-126); Aspartate Amino Transferase 20 U/L (17-59); Bilirubin,Total 0.3 mg/dL (0.2-1.3); Blood Urea Nitrogen 29 mg/dL (9-20); Calcium 6.8 mg/dL (8.4-10.2); Carbon Dioxide 31 mmol/L (22-30); Chloride 105 mmol/L (98-107); Estimated CRCL calculation 95 ml/min; Estimated Glomerular Filt Rate > 60; Glucose 166 mg/dL (75-110); Lactate Dehydrogenase 490 U/L (313-618); Magnesium 2.1 mg/dL (1.6-2.3); Potassium 4.1 mmol/L (3.4-5.0); Sodium 138 mmol/L (137-145)
[2020-01-15] MEDS: PYRIDOSTIGMINE BROMIDE 60 MG TABLET PO ×3 (05:26→20:05)
[2020-01-15 05:29] LABS: CRP 16.4 mg/dL (<1.0)
[2020-01-15] MEDS: PANTOPRAZOLE SODIUM IV 40 MG VIAL IV PUSH (07:58)
[2020-01-15] MEDS: polyethylene glycoL 3350 17 GM POWD.PACK PO (07:59)
[2020-01-15] MEDS: BISACODYL 5 MG TABLET EC PO (09:27)
--- NOTE | 2020-01-15 11:00 | PCDIET ---
ICU Rounding Note: Patient tolerating Vital 1.5 at 55mL/hr goal rate with no significant residuals. Continuing to receive 30mL water flush every 4 hours. Last recorded weight is 101.7kg which is increased from last review. Bowel Motility: BM x 2 on 01/10/20. Patient receiving Miralax daily and received Dulcolax today. Labs Reviewed: Glu (166), BUN (29), Alb (2.5), Gibran Ca (8.0) Meds Noted: Zithromax, Fentanyl, Novolog, Versed, Protonix, Miralax, Mestinon, s/p Dulcolax Additional Notes: No documented skin breakdown. Following daily in ICU rounds. Assessing/reassessing every Wednesday/Wednesday.
--- NOTE | 2020-01-15 11:06 | WPDINTPN ---
Progress Note: A&P Assessment and Plan (1) Acute respiratory failure with hypoxia: Code(s): J96.01 - Acute respiratory failure with hypoxia Status: Acute Assessment and Plan: Acute respiratory failure secondary to positive COVID-19. Intubated on 01/10/2020 - Pt on presentation did not have any respiratory symptoms but over his hospital stay he has became hypoxic requiring intubation - CT angiogram of lung on 01/08/2020: No pulmonary embolism, moderate amount of ground- glass opacities were seen. - 01/08 transferred to ICU and SARS-CoV-2 PCR positive - Chest x-ray shows stable diffuse bilateral disease, ABGs reviewed, continue CMV mode of ventilation, will increase FiO2 50% and tidal volume to 500 mL, peep of 12. - continue airborne, droplet and contact isolation. - Patient status post 5 day course of Solu-Medrol 1 mg/kg/day - following Troponin, LDH, D-Dimer, CRP, Procal, Ferritin periodically - infectious disease following the patient - sedated with fentanyl and Versed infusion, sedation vacation per protocol (2) Acute retention of urine: Code(s): R33.8 - Other retention of urine Status: Acute Assessment and Plan: Taken to OR 01/03 for cysto and underwent cautery. CBI post procedure and stopped yesterday as urine has cleared Creatinine stable. Since creatinine stable urologist not going to pursue stent or nephrostomy tube (3) Prostate cancer: Code(s): C61 - Malignant neoplasm of prostate Status: Acute Assessment and Plan: Recurrent and blocking urethra. Was opened and new catheter placed. (4) Hydronephrosis: Code(s): N13.30 - Unspecified hydronephrosis Status: Acute Assessment and Plan: As above. Creatinine stable. - blocked ureter probable nonfunctioning kidney so no stent or nephrostomy tube planned per urology. (5) HTN (hypertension): Qualifiers: Hypertension type: essential hypertension Qualified Code(s): I10 - Essential (primary) hypertension Code(s): I10 - Essential (primary) hypertension Status: Acute Assessment and Plan: Blood pressure well controlled. hold p.o. blood pressure meds (6) Diabetes: Qualifiers: Diabetes mellitus type: type 2 Code(s): E11.9 - Type 2 diabetes mellitus without complications Status: Acute Assessment and Plan: patient is on sliding scale. (7) Anemia: Qualifiers: Anemia type: other cause Other causes of anemia: acute posthemorrhagic Qualified Code(s): D62 - Acute posthemorrhagic anemia Code(s): D64.9 - Anemia, unspecified Status: Acute Assessment and Plan: patient was transfuse 1 unit of packed RBCs on 01/04 For hemoglobin of 6.7. Likely related to hematuria - patient also received a unit of packed RBCs on 01/11/2020 - hemoglobin remains stable (8) DVT (deep venous thrombosis): Code(s): I82.409 - Acute embolism and thrombosis of unspecified deep veins of unspecified lower extremity Status: Acute Assessment and Plan: Recent right lower extremity DVT and subsequent IVC filter placed approximately 14 day prior to admission, due to hematuria. CTA negative for PE. - echocardiogram on 01/10/2020 showed EF of 60-65% with normal LV systolic function. Mild pulmonary hypertension with RVSP of 40 mmHg avoid to moderate pulmonary regurgitation. - right lower extremity venous Dopplers done on 01/13/2020: No lower extremity DVT - discontinued heparin infusion, started patient on Lovenox 1 mg /kg q.day (9) Myasthenia gravis: Code(s): G70.00 - Myasthenia gravis without (acute) exacerbation Status: Acute Assessment and Plan: Stable. Continue pyridostigmine. Status post steroids Stress ulcer prophylaxis - PPI Nutrition - tolerating tube will discuss with family Code Status - Full Code Total Critical Care Time - 3
[2020-01-15 11:17] LABS: Glucose Point of Care 199 (65-105)
--- NOTE | 2020-01-15 13:45 | WPDINFPN2 ---
Progress Note: A&P Assessment and Plan (1) Pneumonia due to COVID-19 virus: Code(s): U07.1 - COVID-19; J12.89 - Other viral pneumonia Status: Acute Assessment and Plan: 1. Prior fever and hypoxemia due to CoVid viral pneumonia. Temperatures back up. 2. Chronic steroid, stress dose stopped 3. Prostate cancer 4. DVT REC Remdesivir not available for several weeks minimum. off-label therapies should not be used outside of a clinical trial. On isolation. No sign of bacterial superinfection. There is no current indication for azithromycin, will stop Subjective Date/time seen: 01/15/20 13:45 Interval history: sedated and intubated, no pressors Exam Narrative: Exam Narrative: t max 38.0 axillary Const: General: no acute distress Eyes: General: appearance normal, both eyes and all related structures Resp: Effort & Inspection: normal respiratory effort Auscultation: clear to auscultation bilaterally Cardio: Rate: regular rate Rhythm: regular rhythm Heart sounds: no gallops GI: Inspection: non-distended GI Palp: Yes Soft to palpation and No Tenderness to palpation present (GI) Urinary Catheter: Urinary Catheter: patent and draining Skin: General skin exam: normal color and no rashes or lesions noted Objective Data Vital Signs Vital Signs: Vital Signs - 24 hr 01/14/20 14:00 01/14/20 14:19 01/14/20 16:00 Temperature 36.7 C Pulse Rate 62 66 64 Respiratory Rate 20 20 Blood Pressure 104/56 L 104/54 L Pulse Oximetry 98 96 96 01/14/20 16:41 01/14/20 18:00 01/14/20 20:00 Temperature 37.1 C Pulse Rate 69 67 70 Respiratory Rate 20 20 Blood Pressure 111/56 L 112/56 L Pulse Oximetry 96 97 95 01/14/20 20:22 01/14/20 22:00 01/14/20 23:49 Temperature Pulse Rate 85 77 71 Respiratory Rate 20 Blood Pressure 115/57 L Pulse Oximetry 93 92 95 01/15/20 00:00 01/15/20 02:00 01/15/20 02:17 Temperature 37.1 C Pulse Rate 91 81 84 Respiratory Rate 20 20 Blood Pressure 135/75 117/58 L Pulse Oximetry 92 91 94 01/15/20 04:00 01/15/20 04:18 01/15/20 06:00 Temperature 37.6 C Pulse Rate 80 80 83 Respiratory Rate 20 20 Blood Pressure 113/62 108/60 Pulse Oximetry 91 91 94 01/15/20 08:00 01/15/20 08:35 01/15/20 10:00 Temperature 38.0 C H Pulse Rate 84 86 83 Respiratory Rate 21 H 22 H Blood Pressure 120/60 111/58 L Pulse Oximetry 94 92 93 01/15/20 12:00 Temperature 37.7 C H Pulse Rate 89 Respiratory Rate 22 H Blood Pressure 119/65 Pulse Oximetry 95 Intake/Output Intake/Output: Intake & Output 01/12/20 01/13/20 01/14/20 01/15/20 23:59 23:59 23:59 23:59 Intake Total 1986.5 2701 2101 1047 Output Total 900 2275 2050 550 Balance 1086.5 426 51 497 Meds/Results Medications: Active Medications Generic Name Dose Route Start Last Admin Trade Name Freq PRN Reason Stop Dose Admin Acetaminophen 650 mg 01/04/20 15:50 01/06/20 06:32 Tylenol Tablet PO 650 mg Q6H PRN Administration Mild Pain (1-3) or Fever Atorvastatin Calcium 40 mg 01/04/20 21:00 01/14/20 20:17 Lipitor PO 40 mg HS LUCIANO Administration Dextrose 12.5 gm 01/04/20 17:07 Dextrose 50% Syringe IV PUSH PRN PRN Hypoglycemia Protocol Enoxaparin Sodium 100 mg 01/13/20 21:00 01/14/20 20:22 Lovenox SUB-Q 100 mg Q24H LUCIANO Administration Glucagon 1 mg 01/04/20 17:07 Glucagon For Inj IM PRN PRN Hypoglycemia Protocol Glucose 15 gm 01/04/20 17:07 Glutose 15 PO PRN PRN Hypoglycemia Protocol Dextrose 1,000 mls @ 100 mls/hr 01/04/20 17:07 Dextrose 5% 1,000 Ml IVPB PRN PRN Hypoglycemia Protocol Midazolam HCl 50 mg in 100 mls @ 6 mls/hr 01/10/20 04:35 01/15/20 13:41 Versed 50 Mg/D5w 100 Ml IV CONT Not Given .[id number] LUCIANO Protocol 3 MG/HR Fentanyl Citrate 2,500 mcg in 250 mls @ 12.5 mls/hr 01/10/20 04:35 01/15/20 11:24 Fentanyl 2,500 Mcg/Ns 250 Ml IV CONT
--- NOTE | 2020-01-15 15:04 | PM.IMPN ---
Progress Note: A&P Assessment and Plan (1) Acute respiratory failure with hypoxia: Code(s): J96.01 - Acute respiratory failure with hypoxia Status: Acute Assessment and Plan: No chest x-ray on admission but CT of the abdomen on 01/02 did show the lower bases of the lungs that were relatively clear. Patient with fever on 01/06/20. Patient had been on 1-2 L during his hospitalization but up to 3L on 01/07 prompting CTA of the chest showing no PE but moderate amount of ground-glass airspace opacities consistent with infection versus edema versus COVID. Oxygen requirement increased to 15 L non-rebreather with pH is 7.37, pCO2 of 44 and PO2 of 74 (AA gradient of 600). BNP 617. Lasix IV x1 was given and patient moved to ICU. DDimer 13, Ferritin 125, LDH 574, CRP>9. COVID positive. 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 Hypothermia most likely related to COVID. Discussed with field reviewer. Continue steroids and Azithromycin to complete a 5 day course. Continue supportive care. Wean O2 as tolerated. 01/15/20 15:04 Patient is 74-year-old male with history of Matthinias gravis, as well as history of prostate cancer initially presented to the ER for urinary retention patient was seen by urologist, while in the hospital patient became hypoxic requiring more and more oxygen he was intubated and was found to positive for COVID-19 currently patient on vent unable to provide any review of symptoms, patient is seen by field reviewer and Dr. gardiner, does not recommend any antibiotics as the pneumonia as while and no experimental medications are available ait present time, patient with history Matthinias gravis he was started steroid 1 milligram/kilogram on 01/12 patient completed his 5 day course. Patient remained clinically stable on ventilator, patient is seen by Dr. Gardiner and field reviewer (2) Pneumonia due to COVID-19 virus: Code(s): U07.1 - COVID-19; J12.89 - Other viral pneumonia Status: Acute Assessment and Plan: As above. Contineu supportive care. (3) Acute retention of urine: Code(s): R33.8 - Other retention of urine Status: Acute Assessment and Plan: Taken to OR 01/03 for cysto and underwent cautery. CBI post procedure and stopped on 01/08/20 since urine had cleared. Plavix remains on hold. Creatinine remains stable. Since creatinine stable, urologist not placing stent or nephrostomy tubes at this time. Contineu Henry. (4) Prostate cancer: Code(s): C61 - Malignant neoplasm of prostate Status: Acute Assessment and Plan: Cysto on 01/03 showing marked regrowth of locally advanced, recurrence prostate carcinoma that is covering the bladder neck and trigone. He iunderwent clot evacuation. The ureteral orifice could not be located. Patient underwent extensive cauterization of the bladder neck with a rollerball electrode. Monitor closely for evidence of rebleeding. (5) Hydronephrosis: Code(s): N13.30 - Unspecified hydronephrosis Status: Acute Assessment and Plan: As above. Creatinine stable at 0.8 today. Patient with a blocked ureter probable with nonfunctioning kidney so no stent or nephrostomy tube planned per urology. Monitor renal function closely. (6) HTN (hypertension): Qualifiers: Hypertension type: essential hypertension Qualified Code(s): I10 - Essential (primary) hypertension Code(s): I10 - Essential (primary) hypertension Status: Acute Assessment and Plan: Blood pressure reviewed on 01/12/2020. Blood pressure well controlled. He has not required any pressor therapy. Amlodipine and metoprolol on hold. Continue to monitor. (7) Diabetes: Qualifiers: Diabetes mellitus type: type 2 Code(s): E11.9 - Type 2 diabetes mellitus without complications Status: Acute Assessment and Plan: Glucose reviewed on 01/12/2020. Glucose more elevated a
[2020-01-15 17:21] LABS: Glucose Point of Care 187 (65-105)
[2020-01-15] MEDS: ATORVASTATIN 40 MG TABLET PO (20:04)
[2020-01-15] MEDS: ENOXAPARIN 100 MG/ML SYRINGE SUB-Q (20:04)
[2020-01-16] VITALS (22 sets, daily range): BP systolic 102–161; BP diastolic 56–71; PULSE 92–130; RESP 20–32; TEMP 37.1–37.8; O2SAT 87–100
[2020-01-16 00:08] LABS: Glucose Point of Care 206 (65-105)
[2020-01-16] MEDS: INSULIN ASPART (*BKC) 100 UNITS/ML SUB-Q ×2 (00:39→18:22)
[2020-01-16 05:21] LABS: Alveolar/Arterial O2 Gradient 239.2 mmHg; Base Excess ABG 2.9 mEq/l (+/-2.0); Carboxyhemoglobin 0.2 % THb (0-2.0); Fractional Inspired Oxygen 50 %; HCO3 ABG 26.5 mEq/l (22.0-26.0); Methemoglobin ABG 0.1 %THb (0-1.5); Oxygen Content ABG 12.3 %vol (16.0-22.0); Oxygen Saturation ABG 96.2 % (95.0-100.0); Oxyhemoglobin 94.6 % THb (90.0-100.0); PCO2 ABG 36.4 mmHg (35.0-45.0); PO2 ABG 76.4 mmHg (80.0-100.0); PO2 FiO2 Ratio Arterial Blood 1.53 %; Reduced Hemoglobin 5.1 %THb (0-5.0); Total Hemoglobin 9.2 g/dL (12.0-18.0)
[2020-01-16 05:22] LABS: Arterial Blood Gas Ventilator rate 20 /MIN; Device VENTILATOR; Modified Allen's Test Pass; Site Drawn RIGHT RADIAL
[2020-01-16 05:23] LABS: Arterial Blood Gas PEEP 5 cmH2O; Arterial Blood Gas Pressure Support 0 cmH2O; Arterial Blood Gas Tidal Volume 500 ml; Arterial Blood Gas Vent Mode CMV
[2020-01-16 05:49] LABS: Hematocrit 26.2 % (42.0-52.0); Mean Corpuscular HGB Conc 30.5 g/dl (32-36); Mean Corpuscular Hemoglobin 26.1 pg (26-34); Mean Corpuscular Volume 85.3 fl (80-100); Mean Platelet Volume 10.9 fl (7.4-10.4); Platelet Count Result 277 k/mm3 (150-375); Red Blood Count 3.07 M/mm3 (4.6-6.20); Red Cell Distribution Width 17.2 % (11.5-14.5); White Blood Count 5.6 K/mm3 (4.5-10.0)
[2020-01-16] MEDS: PYRIDOSTIGMINE BROMIDE 60 MG TABLET PO ×3 (05:51→21:01)
[2020-01-16 06:15] LABS: Blood Urea Nitrogen 22 mg/dL (9-20); Calcium 6.7 mg/dL (8.4-10.2); Carbon Dioxide 30 mmol/L (22-30); Chloride 106 mmol/L (98-107); Estimated CRCL calculation 95 ml/min; Estimated Glomerular Filt Rate > 60; Glucose 148 mg/dL (75-110); Lactate Dehydrogenase 556 U/L (313-618); Magnesium 2.4 mg/dL (1.6-2.3); Phosphorus 3.3 mg/dL (2.5-4.5); Potassium 4.4 mmol/L (3.4-5.0); Sodium 138 mmol/L (137-145)
[2020-01-16 06:15] LABS: D Dimer 4.81 ug/mL (<0.48)
[2020-01-16 06:33] LABS: CRP 33.9 mg/dL (<1.0)
[2020-01-16] MEDS: PANTOPRAZOLE SODIUM IV 40 MG VIAL IV PUSH (09:21)
--- NOTE | 2020-01-16 10:31 | PCDIET ---
Nutrition Follow-Up Complete: Nutrition Diagnosis: Inadequate oral intake related to oral intubation as evidenced by NPO status. Nutrition Goal: Patient to meet estimated nutritional needs. Goal met. Patient tolerating Vital 1.5 at 55mL/hr goal rate with Pro-Stat 1x daily. Last recorded weight is 101.7 kg. Recommend obtaining daily weight. Bowel Motility: +BMs overnight. RN held Miralax today due to liquid BM this morning. Labs Reviewed: Glu (148), BUN (22), Alb (2.5), Gibran Ca (7.9) Meds Noted: Fentanyl, Protonix, Novolog, Versed, Mestinon, Lasix Additional Notes: No reported skin breakdown. If medically appropriate, would consider calcium supplement. Recommend continuing present tube feeding at this time. Nutrition Monitoring and Evaluation: Follow up every Wednesday/Wednesday. Follow daily in ICU rounds.
--- NOTE | 2020-01-16 11:00 | WPDUROPN2 ---
Progress Note: A&P Assessment and Plan (1) Prostate cancer: Code(s): C61 - Malignant neoplasm of prostate Status: Acute (2) Gross hematuria: Code(s): R31.0 - Gross hematuria Status: Acute Assessment and Plan: Urine remains clear following resumption of anticoagulation. Creat stable @0.7. No plans for any intervetnion, from our standpoint. Time Spent With Patient Time with patient: less than 15 minutes Subjective Subjective Date/Time Seen: 01/16/20 11:00 Unable to respond due to intubation Review of Systems Review of Systems: ROS unobtainable: Yes unobtainable due to endotracheal tube Exam Urinary Catheter: Urinary Catheter: patent and draining and urine clear Objective Data Vital Signs Vital Signs: Vital Signs - 24 hr 01/15/20 12:00 01/15/20 12:20 01/15/20 14:00 Temperature 100 F H Pulse Rate 89 90 93 Respiratory Rate 22 H 24 H Blood Pressure 119/65 152/74 H Pulse Oximetry 95 93 94 01/15/20 16:00 01/15/20 16:40 01/15/20 20:00 Temperature 99.9 F H 99.3 F Pulse Rate 99 88 99 Respiratory Rate 24 H 22 H Blood Pressure 121/58 L 135/62 Pulse Oximetry 93 91 98 01/15/20 20:49 01/15/20 22:00 01/15/20 23:34 Temperature Pulse Rate 97 98 102 H Respiratory Rate 21 H Blood Pressure 138/59 L Pulse Oximetry 96 97 97 01/16/20 00:00 01/16/20 02:00 01/16/20 02:37 Temperature 99 F Pulse Rate 101 H 98 100 Respiratory Rate 24 H 22 H Blood Pressure 123/64 131/66 Pulse Oximetry 97 96 97 01/16/20 04:00 01/16/20 05:08 01/16/20 06:00 Temperature 99.1 F Pulse Rate 97 98 99 Respiratory Rate 20 20 Blood Pressure 119/62 134/66 Pulse Oximetry 98 98 98 01/16/20 08:55 Temperature Pulse Rate 93 Respiratory Rate Blood Pressure Pulse Oximetry 99 Intake/Output Intake/Output: Intake & Output 01/13/20 01/14/20 01/15/20 01/16/20 23:59 23:59 23:59 23:59 Intake Total 2701 2101 1738 881 Output Total 6272 0376 1150 600 Balance 426 51 588 281 Meds/Results Medications: Active Medications Generic Name Dose Route Start Last Admin Trade Name Freq PRN Reason Stop Dose Admin Acetaminophen 650 mg 01/04/20 15:50 01/06/20 06:32 Tylenol Tablet PO 650 mg Q6H PRN Administration Mild Pain (1-3) or Fever Atorvastatin Calcium 40 mg 01/04/20 21:00 01/15/20 20:04 Lipitor PO 40 mg HS LUCIANO Administration Dextrose 12.5 gm 01/04/20 17:07 Dextrose 50% Syringe IV PUSH PRN PRN Hypoglycemia Protocol Enoxaparin Sodium 100 mg 01/13/20 21:00 01/15/20 20:04 Lovenox SUB-Q 100 mg Q24H LUCIANO Administration Glucagon 1 mg 01/04/20 17:07 Glucagon For Inj IM PRN PRN Hypoglycemia Protocol Glucose 15 gm 01/04/20 17:07 Glutose 15 PO PRN PRN Hypoglycemia Protocol Dextrose 1,000 mls @ 100 mls/hr 01/04/20 17:07 Dextrose 5% 1,000 Ml IVPB PRN PRN Hypoglycemia Protocol Midazolam HCl 50 mg in 100 mls @ 4 mls/hr 01/10/20 04:35 01/16/20 05:49 Versed 50 Mg/D5w 100 Ml IV CONT 2 mg/hr .Q25H LUCIANO 4 mls/hr Titration Protocol 2 MG/HR Fentanyl Citrate 2,500 mcg in 250 mls @ 10 mls/hr 01/10/20 04:35 01/16/20 05:50 Fentanyl 2,500 Mcg/Ns 250 Ml IV CONT 100 mcg/hr .Q25H LUCIANO 10 mls/hr Titration Protocol 100 MCG/HR Insulin Aspart 2 - 5 units 01/10/20 12:00 01/16/20 06:35 Novolog SUB-Q Not Given Q6H LUCIANO Protocol Multi-Ingred Cream/Lotion/Oil/Oint 1 applic 01/10/20 09:00 01/16/20 09:21 Lubrifresh Pm Eye Ointment EACH EYE 1 applic Q12HR LUCIANO Administration Ondansetron HCl 4 mg 01/05/20 17:21 01/08/20 18:39 Zofran Inj IV PUSH 4 mg Q6H PRN Administration Nausea And Vomiting Pantoprazole Sodium 40 mg 01/15/20 09:00 01/16/20 09:21 Protonix Iv IV PUSH 40 mg QAM LUCIANO Administration Polyethylene Glycol 17 gm 01/16/20 10:23 Miralax PO QAM PRN Constipati
[2020-01-16 12:41] LABS: Glucose Point of Care 189 (65-105)
--- NOTE | 2020-01-16 12:42 | P.PNINT_ITS ---
Progress Note: A&P Assessment and Plan (1) Acute respiratory failure with hypoxia: Code(s): J96.01 - Acute respiratory failure with hypoxia Status: Acute Assessment and Plan: Acute respiratory failure secondary to positive COVID-19. Intubated on 01/10/2020 - Pt on presentation did not have any respiratory symptoms but over his hospital stay he has became hypoxic requiring intubation - CT angiogram of lung on 01/08/2020: No pulmonary embolism, moderate amount of ground- glass opacities were seen. - 01/08 transferred to ICU and SARS-CoV-2 PCR positive - Chest x-ray shows stable diffuse bilateral disease, ABGs reviewed, continue CMV mode of ventilation, will increase FiO2 50% and tidal volume to 500 mL, peep of 12. - continue airborne, droplet and contact isolation. - Patient status post 5 day course of Solu-Medrol 1 mg/kg/day - following Troponin, LDH, D-Dimer, CRP, Procal, Ferritin periodically - infectious disease following the patient - sedated with fentanyl and Versed infusion, sedation vacation per protocol - will diurese patient today (2) Acute retention of urine: Code(s): R33.8 - Other retention of urine Status: Acute Assessment and Plan: Taken to OR 01/03 for cysto and underwent cautery. CBI post procedure and stopped yesterday as urine has cleared Creatinine stable. Since creatinine stable urologist not going to pursue stent or nephrostomy tube (3) Prostate cancer: Code(s): C61 - Malignant neoplasm of prostate Status: Acute Assessment and Plan: Recurrent and blocking urethra. Was opened and new catheter placed. (4) Hydronephrosis: Code(s): N13.30 - Unspecified hydronephrosis Status: Acute Assessment and Plan: As above. Creatinine stable. - blocked ureter probable nonfunctioning kidney so no stent or nephrostomy tube planned per urology. (5) HTN (hypertension): Qualifiers: Hypertension type: essential hypertension Qualified Code(s): I10 - Essential (primary) hypertension Code(s): I10 - Essential (primary) hypertension Status: Acute Assessment and Plan: Blood pressure well controlled. hold p.o. blood pressure meds (6) Diabetes: Qualifiers: Diabetes mellitus type: type 2 Code(s): E11.9 - Type 2 diabetes mellitus without complications Status: Acute Assessment and Plan: patient is on sliding scale. (7) Anemia: Qualifiers: Anemia type: other cause Other causes of anemia: acute posthemorrhagic Qualified Code(s): D62 - Acute posthemorrhagic anemia Code(s): D64.9 - Anemia, unspecified Status: Acute Assessment and Plan: patient was transfuse 1 unit of packed RBCs on 01/04 For hemoglobin of 6.7. Likely related to hematuria - patient also received a unit of packed RBCs on 01/11/2020 - hemoglobin remains stable (8) DVT (deep venous thrombosis): Code(s): I82.409 - Acute embolism and thrombosis of unspecified deep veins of unspecified lower extremity Status: Acute Assessment and Plan: Recent right lower extremity DVT and subsequent IVC filter placed approximately 14 day prior to admission, due to hematuria. CTA negative for PE. - echocardiogram on 01/10/2020 showed EF of 60-65% with normal LV systolic function. Mild pulmonary hypertension with RVSP of 40 mmHg avoid to moderate pulmonary regurgitation. - right lower extremity venous Dopplers done on 01/13/2020: No lower extremity DVT - discontinued hepa
--- NOTE | 2020-01-16 13:19 | WPDINFPN2 ---
Progress Note: A&P Assessment and Plan (1) Pneumonia due to COVID-19 virus: Code(s): U07.1 - COVID-19; J12.89 - Other viral pneumonia Status: Acute Assessment and Plan: 1. Prior fever and hypoxemia due to CoVid viral pneumonia. Temperatures back down for now 2. Chronic steroid, stress dose stopped 3. Prostate cancer 4. DVT REC Off antimicrobials and monitoring Subjective Date/time seen: 01/16/20 13:19 Interval history: sedated and intubated Exam Narrative: Exam Narrative: afebrile core temps Const: General: no acute distress Eyes: General: appearance normal, both eyes and all related structures Resp: Effort & Inspection: normal respiratory effort Auscultation: clear to auscultation bilaterally Cardio: Rate: tachycardic Rhythm: regular rhythm Heart sounds: no gallops and no murmurs GI: Inspection: non-distended GI Palp: Yes Soft to palpation and No Tenderness to palpation present (GI) Urinary Catheter: Urinary Catheter: patent and draining and urine clear Skin: General skin exam: normal color and no rashes or lesions noted Objective Data Vital Signs Vital Signs: Vital Signs - 24 hr 01/15/20 14:00 01/15/20 16:00 01/15/20 16:40 Temperature 37.7 C H Pulse Rate 93 99 88 Respiratory Rate 24 H 24 H Blood Pressure 152/74 H 121/58 L Pulse Oximetry 94 93 91 01/15/20 20:00 01/15/20 20:49 01/15/20 22:00 Temperature 37.4 C Pulse Rate 99 97 98 Respiratory Rate 22 H 21 H Blood Pressure 135/62 138/59 L Pulse Oximetry 98 96 97 01/15/20 23:34 01/16/20 00:00 01/16/20 02:00 Temperature 37.2 C Pulse Rate 102 H 101 H 98 Respiratory Rate 24 H 22 H Blood Pressure 123/64 131/66 Pulse Oximetry 97 97 96 01/16/20 02:37 01/16/20 04:00 01/16/20 05:08 Temperature 37.3 C Pulse Rate 100 97 98 Respiratory Rate 20 Blood Pressure 119/62 Pulse Oximetry 97 98 98 01/16/20 06:00 01/16/20 08:00 01/16/20 08:55 Temperature 37.6 C Pulse Rate 99 94 93 Respiratory Rate 20 21 H Blood Pressure 134/66 118/59 L Pulse Oximetry 98 98 99 01/16/20 10:00 01/16/20 12:00 Temperature 36.9 C Pulse Rate 98 105 H Respiratory Rate 23 H 27 H Blood Pressure 117/62 161/71 H Pulse Oximetry 97 96 Intake/Output Intake/Output: Intake & Output 01/13/20 01/14/20 01/15/20 01/16/20 23:59 23:59 23:59 23:59 Intake Total 2701 2101 1738 881 Output Total 2275 2050 1150 600 Balance 426 51 588 281 Meds/Results Medications: Active Medications Generic Name Dose Route Start Last Admin Trade Name Freq PRN Reason Stop Dose Admin Acetaminophen 650 mg 01/04/20 15:50 01/06/20 06:32 Tylenol Tablet PO 650 mg Q6H PRN Administration Mild Pain (1-3) or Fever Atorvastatin Calcium 40 mg 01/04/20 21:00 01/15/20 20:04 Lipitor PO 40 mg HS LUCIANO Administration Dextrose 12.5 gm 01/04/20 17:07 Dextrose 50% Syringe IV PUSH PRN PRN Hypoglycemia Protocol Enoxaparin Sodium 100 mg 01/13/20 21:00 01/15/20 20:04 Lovenox SUB-Q 100 mg Q24H LUCIANO Administration Glucagon 1 mg 01/04/20 17:07 Glucagon For Inj IM PRN PRN Hypoglycemia Protocol Glucose 15 gm 01/04/20 17:07 Glutose 15 PO PRN PRN Hypoglycemia Protocol Dextrose 1,000 mls @ 100 mls/hr 01/04/20 17:07 Dextrose 5% 1,000 Ml IVPB PRN PRN Hypoglycemia Protocol Midazolam HCl 50 mg in 100 mls @ 4 mls/hr 01/10/20 04:35 01/16/20 05:49 Versed 50 Mg/D5w 100 Ml IV CONT 2 mg/hr .Q25H LUCIANO 4 mls/hr Titration Protocol 2 MG/HR Fentanyl Citrate 2,500 mcg in 250 mls @ 10 mls/hr 01/10/20 04:35 01/16/20 05:50 Fentanyl 2,500 Mcg/Ns 250 Ml IV CONT 100 mcg/hr .Q25H LUCIANO 10 mls/hr Titration Protocol 100 MCG/HR Insulin Aspart 2 - 5 units 01/10/20 12:00 01/16/20 12:36 Novolog SUB-Q Not Given Q6H [facility] Protocol Multi-Ingred Cream/Lotion/Oil/Oint 1 applic 01/10/20 09:00 01/16/20 09:21
[2020-01-16] MEDS: FUROSEMIDE INJ 40 MG/4 ML VIAL IV PUSH ×2 (13:57→21:24)
[2020-01-16] MEDS: ACETAMINOPHEN 325 MG TABLET 650 MG PO (14:08)
--- NOTE | 2020-01-16 14:29 | PM.IMPN ---
Progress Note: A&P Assessment and Plan (1) Acute respiratory failure with hypoxia: Code(s): J96.01 - Acute respiratory failure with hypoxia Status: Acute Assessment and Plan: Patient is 74-year-old male with history of Mathesia gravis, as well as history of prostate cancer initially presented to the ER for urinary retention patient was seen by urologist, while in the hospital patient became hypoxic requiring more and more oxygen he was intubated and was found to positive for COVID-19 currently patient on vent unable to provide any review of symptoms, patient is seen by rubber grinder and Dr. gardiner, does not recommend any antibiotics, pt is on steroids for mathesia gravis. Patient remained clinically stable on ventilator, patient is seen by Dr. Gardiner and rubber grinder Same plan as yesterday. See above plan. (2) Pneumonia due to COVID-19 virus: Code(s): U07.1 - COVID-19; J12.89 - Other viral pneumonia Status: Acute Assessment and Plan: As above. Contine supportive care. (3) Acute retention of urine: Code(s): R33.8 - Other retention of urine Status: Acute Assessment and Plan: Taken to OR 01/03 for cysto and underwent cautery. CBI post procedure and stopped on 01/08/20 since urine had cleared. Plavix remains on hold. Creatinine remains stable. (4) Prostate cancer: Code(s): C61 - Malignant neoplasm of prostate Status: Acute Assessment and Plan: Cysto on 01/03 showing marked regrowth of locally advanced, recurrence prostate carcinoma that is covering the bladder neck and trigone. (5) Hydronephrosis: Code(s): N13.30 - Unspecified hydronephrosis Status: Acute Assessment and Plan: As above. Creatinine stable at 0.8 today. Patient with a blocked ureter probable with nonfunctioning kidney so no stent or nephrostomy tube planned per urology. Monitor renal function closely. (6) HTN (hypertension): Qualifiers: Hypertension type: essential hypertension Qualified Code(s): I10 - Essential (primary) hypertension Code(s): I10 - Essential (primary) hypertension Status: Acute Assessment and Plan: Blood pressure reviewed on 01/12/2020. Blood pressure well controlled. (7) Diabetes: Qualifiers: Diabetes mellitus type: type 2 Code(s): E11.9 - Type 2 diabetes mellitus without complications Status: Acute Assessment and Plan: Glucose reviewed on 01/12/2020. Glucose more elevated at times related to the steroids. Continue sliding scale protocol with frequent Accu-Cheks. (8) Anemia: Qualifiers: Anemia type: other cause Other causes of anemia: acute posthemorrhagic Qualified Code(s): D62 - Acute posthemorrhagic anemia Code(s): D64.9 - Anemia, unspecified Status: Acute Assessment and Plan: Hemoglobin 6.7 on admission related to acute blood loss anemia from the hematuria. Patient transfused 1 unit of packed cells 01/04. Hgb 7-8 range since transfusion but dropped to 6.9 01/10 and 2nd unit transfused. Hgb up to 8 now. (9) DVT (deep venous thrombosis): Code(s): I82.409 - Acute embolism and thrombosis of unspecified deep veins of unspecified lower extremity Status: Acute Assessment and Plan: Recent right lower extremity DVT and subsequent IVC filter placed due to hematuria approximately 2 weeks prior to admission. Venous Doppler of left lower extremity negative on this admission here. CTA negative for PE. on lovenox (10) Myasthenia gravis: Code(s): G70.00 - Myasthenia gravis without (acute) exacerbation Status: Acute Assessment and Plan: Continue pyridostigmine. Today patient completed 5 days of steroid Subjective Date/time seen: 01/16/20 14:29 Interval history: Pt is sedated and intubated, discussed case with ICU attending. History of mysthnethia gravis and prostate cancer. Muc
[2020-01-16 18:20] LABS: Glucose Point of Care 228 (65-105)
[2020-01-16] MEDS: ENOXAPARIN 100 MG/ML SYRINGE SUB-Q (20:04)
[2020-01-16] MEDS: ATORVASTATIN 40 MG TABLET PO (20:04)
[2020-01-17] VITALS (20 sets, daily range): BP systolic 98–139; BP diastolic 49–68; PULSE 94–126; RESP 21–28; TEMP 36.4–37.3; O2SAT 91–98
[2020-01-17] LABS: Glucose Point of Care 186 (65-105)
[2020-01-17 04:43] LABS: Hematocrit 24.6 % (42.0-52.0); Hemoglobin 7.4 g/dL (14.0-18.0); Mean Corpuscular HGB Conc 30.1 g/dl (32-36); Mean Corpuscular Hemoglobin 25.9 pg (26-34); Mean Platelet Volume 11.5 fl (7.4-10.4); Platelet Count Result 247 k/mm3 (150-375); Red Blood Count 2.86 M/mm3 (4.6-6.20); Red Cell Distribution Width 17.4 % (11.5-14.5); White Blood Count 6.3 K/mm3 (4.5-10.0)
[2020-01-17 04:56] LABS: Partial Thromboplastin Time 40.6 SECONDS (22.3-36.8)
[2020-01-17 05:11] LABS: Alveolar/Arterial O2 Gradient 243.6 mmHg; Base Excess ABG 2.1 mEq/l (+/-2.0); Carboxyhemoglobin 0.3 % THb (0-2.0); Device VENTILATOR; Fractional Inspired Oxygen 50 %; HCO3 ABG 26.7 mEq/l (22.0-26.0); Methemoglobin ABG 0.3 %THb (0-1.5); Modified Allen's Test Pass; Oxygen Content ABG 11.3 %vol (16.0-22.0); Oxygen Saturation ABG 93.5 % (95.0-100.0); Oxyhemoglobin 91.8 % THb (90.0-100.0); PCO2 ABG 41.6 mmHg (35.0-45.0); PO2 ABG 66.1 mmHg (80.0-100.0); PO2 FiO2 Ratio Arterial Blood 1.32 %; Reduced Hemoglobin 7.6 %THb (0-5.0); Site Drawn LEFT RADIAL; Total Hemoglobin 8.7 g/dL (12.0-18.0); pH ABG 7.425 (7.350-7.450)
[2020-01-17 05:12] LABS: Arterial Blood Gas PEEP 12 cmH2O; Arterial Blood Gas Tidal Volume 500 ml; Arterial Blood Gas Vent Mode CMV; Arterial Blood Gas Ventilator rate 20 /MIN
[2020-01-17 05:14] LABS: Blood Urea Nitrogen 25 mg/dL (9-20); Calcium 6.9 mg/dL (8.4-10.2); Carbon Dioxide 30 mmol/L (22-30); Chloride 106 mmol/L (98-107); Estimated CRCL calculation 84 ml/min; Estimated Glomerular Filt Rate > 60; Glucose 227 mg/dL (75-110); Lactate Dehydrogenase 545 U/L (313-618); Magnesium 2.4 mg/dL (1.6-2.3); Phosphorus 3.1 mg/dL (2.5-4.5); Potassium 4.2 mmol/L (3.4-5.0); Sodium 138 mmol/L (137-145)
[2020-01-17] MEDS: PYRIDOSTIGMINE BROMIDE 60 MG TABLET PO ×3 (05:17→20:14)
[2020-01-17] MEDS: INSULIN ASPART (*BKC) 100 UNITS/ML SUB-Q ×2 (05:17→12:00)
[2020-01-17 05:39] LABS: CRP 38.2 mg/dL (<1.0)
[2020-01-17] MEDS: PANTOPRAZOLE SODIUM IV 40 MG VIAL IV PUSH (09:17)
[2020-01-17] MEDS: FUROSEMIDE INJ 40 MG/4 ML VIAL 20 MG IV PUSH ×2 (09:17→20:13)
--- NOTE | 2020-01-17 09:26 | PM.IMPN ---
Progress Note: A&P Assessment and Plan (1) Acute respiratory failure with hypoxia: Code(s): J96.01 - Acute respiratory failure with hypoxia Status: Acute Assessment and Plan: Patient is 74-year-old male with history of Mathesia gravis, as well as history of prostate cancer initially presented to the ER for urinary retention patient was seen by urologist, while in the hospital patient became hypoxic requiring more and more oxygen he was intubated and was found to positive for COVID-19 currently patient on vent unable to provide any review of symptoms, patient is seen by coal trammer and Dr. gardiner, does not recommend any antibiotics, pt is on steroids for mathesia gravis. Patient stable on ventilator, patient is seen by Dr. Gardiner and coal trammer. Ongoing supportive care in ICU. Pt had some issues with pink frothy sputum in the night, cxr shows pulmonary edema, pt receiving some iv diuresis. (2) Pneumonia due to COVID-19 virus: Code(s): U07.1 - COVID-19; J12.89 - Other viral pneumonia Status: Acute Assessment and Plan: As above. Contine supportive care. (3) Acute retention of urine: Code(s): R33.8 - Other retention of urine Status: Acute Assessment and Plan: Taken to OR 01/03 for cysto and underwent cautery. CBI post procedure and stopped on 01/08/20. Continue to watch creat levels. (4) Prostate cancer: Code(s): C61 - Malignant neoplasm of prostate Status: Acute Assessment and Plan: Cysto on 01/03 showing advanced, recurrence prostate carcinoma that is covering the bladder neck and trigone. (5) Hydronephrosis: Code(s): N13.30 - Unspecified hydronephrosis Status: Acute Assessment and Plan: Monitor renal function closely. (6) HTN (hypertension): Qualifiers: Hypertension type: essential hypertension Qualified Code(s): I10 - Essential (primary) hypertension Code(s): I10 - Essential (primary) hypertension Status: Acute Assessment and Plan: Blood pressure well controlled. (7) Diabetes: Qualifiers: Diabetes mellitus type: type 2 Code(s): E11.9 - Type 2 diabetes mellitus without complications Status: Acute Assessment and Plan: Glucose reviewed on 01/12/2020. Glucose more elevated at times related to the steroids. Continue sliding scale protocol with frequent Accu-Cheks. (8) Anemia: Qualifiers: Anemia type: other cause Other causes of anemia: acute posthemorrhagic Qualified Code(s): D62 - Acute posthemorrhagic anemia Code(s): D64.9 - Anemia, unspecified Status: Acute Assessment and Plan: Hemoglobin 7.4 on admission related to acute blood loss anemia from the hematuria. Patient transfused 1 unit of packed cells 01/04. Hgb 7-8 range since transfusion but dropped to 6.9 01/10 and had to have 2nd unit of blood. (9) DVT (deep venous thrombosis): Code(s): I82.409 - Acute embolism and thrombosis of unspecified deep veins of unspecified lower extremity Status: Acute Assessment and Plan: Recent right lower extremity DVT and subsequent IVC filter placed due to hematuria approximately 2 weeks prior to admission. Venous Doppler of left lower extremity negative on this admission here. CTA negative for PE. on lovenox (10) Myasthenia gravis: Code(s): G70.00 - Myasthenia gravis without (acute) exacerbation Status: Acute Assessment and Plan: Continue pyridostigmine. Today patient completed 5 days of steroids Subjective Date/time seen: 01/17/20 09:26 Interval history: Pt is sedated and intubated, discussed case with ICU attending. History of mysthnethia gravis and prostate cancer. Pt had some issues with pink frothy sputum in the night, cxr shows pulmonary edema, pt receiving some iv diuresis. Pt is sedated and intubated in icu. Review of Systems Review of Syst
--- NOTE | 2020-01-17 09:45 | WPDINTPN ---
Progress Note: A&P Assessment and Plan (1) Acute respiratory failure with hypoxia: Code(s): J96.01 - Acute respiratory failure with hypoxia Status: Acute Assessment and Plan: Acute respiratory failure secondary to positive COVID-19. Intubated on 01/10/2020 - Pt on presentation did not have any respiratory symptoms but over his hospital stay he has became hypoxic requiring intubation - CT angiogram of lung on 01/08/2020: No pulmonary embolism, moderate amount of ground- glass opacities were seen. - 01/08 transferred to ICU and SARS-CoV-2 PCR positive - Chest x-ray shows stable diffuse bilateral disease, ABGs reviewed, continue CMV mode of ventilation, will increase FiO2 50% and tidal volume to 500 mL, peep of 12. - continue airborne, droplet and contact isolation. - Patient status post 5 day course of Solu-Medrol 1 mg/kg/day - following Troponin, LDH, D-Dimer, CRP, Procal, Ferritin periodically - infectious disease following the patient - sedated with fentanyl and Versed infusion, sedation vacation per protocol - patient had frothy secretions being suctioned overnight, was desaturating, was tachypneic and dyssynchronous with the ventilator. Lasix was given With improvement in symptoms - will diurese again today (2) Acute retention of urine: Code(s): R33.8 - Other retention of urine Status: Acute Assessment and Plan: Taken to OR 01/03 for cysto and underwent cautery. CBI post procedure and stopped yesterday as urine has cleared Creatinine stable. Since creatinine stable urologist not going to pursue stent or nephrostomy tube (3) Prostate cancer: Code(s): C61 - Malignant neoplasm of prostate Status: Acute Assessment and Plan: Recurrent and blocking urethra. Was opened and new catheter placed. (4) Hydronephrosis: Code(s): N13.30 - Unspecified hydronephrosis Status: Acute Assessment and Plan: As above. Creatinine stable. - blocked ureter probable nonfunctioning kidney so no stent or nephrostomy tube planned per urology. (5) HTN (hypertension): Qualifiers: Hypertension type: essential hypertension Qualified Code(s): I10 - Essential (primary) hypertension Code(s): I10 - Essential (primary) hypertension Status: Acute Assessment and Plan: Blood pressure well controlled. hold p.o. blood pressure meds (6) Diabetes: Qualifiers: Diabetes mellitus type: type 2 Code(s): E11.9 - Type 2 diabetes mellitus without complications Status: Acute Assessment and Plan: patient is on sliding scale. (7) Anemia: Qualifiers: Anemia type: other cause Other causes of anemia: acute posthemorrhagic Qualified Code(s): D62 - Acute posthemorrhagic anemia Code(s): D64.9 - Anemia, unspecified Status: Acute Assessment and Plan: patient was transfuse 1 unit of packed RBCs on 01/04 For hemoglobin of 6.7. Likely related to hematuria - patient also received a unit of packed RBCs on 01/11/2020 - hemoglobin remains stable (8) DVT (deep venous thrombosis): Code(s): I82.409 - Acute embolism and thrombosis of unspecified deep veins of unspecified lower extremity Status: Acute Assessment and Plan: Recent right lower extremity DVT and subsequent IVC filter placed approximately 14 day prior to admission, due to hematuria. CTA negative for PE. - echocardiogram on 01/10/2020 showed EF of 60-65% with normal LV systolic function. Mild pulmonary hypertension with RVSP of 40 mmHg avoid to moderate pulmonary regurgitation. - right lower extremity venous Dopplers done on 01/13/2020: No lower extremity DVT - discontinued heparin infusion, started patient on Lovenox 1 mg /kg q.day (9) Myasthenia gravis: Code(s): G70.00 - Myasthenia gravis without (acute) exacerbation Status: Acute Assessment and Plan: Stable. Con
--- NOTE | 2020-01-17 10:26 | PCDIET ---
ICU Rounding Note: Patient tolerating Vital 1.5 at 55mL/hr with no significant residuals. Receiving Pro-Stat 1x daily to meet estimated protein needs. Last recorded weight is 100.4kg which is down from last review. Bowel Motility: +BM on 01/16/20. Labs Reviewed: Glu (227), BUN (25) Meds Noted: Fentanyl, Lasix, Novolog, Versed, Protonix, Miralax, Mestinon Additional Notes: No reported skin breakdown. If blood sugars remain elevated with medication changes, may want to consider change to carbohydrate controlled formula. Will monitor. Following daily in ICU rounds. Assessing/reassessing every Wednesday/Wednesday.
[2020-01-17 12:30] LABS: Glucose Point of Care 206 (65-105)
--- NOTE | 2020-01-17 15:35 | WPDINFPN2 ---
Progress Note: A&P Assessment and Plan (1) Pneumonia due to COVID-19 virus: Code(s): U07.1 - COVID-19; J12.89 - Other viral pneumonia Status: Acute Assessment and Plan: 1. Fever and hypoxemia due to CoVid viral pneumonia. Temperatures largely resolved 2. Chronic steroid, stress dose stopped 3. Prostate cancer 4. DVT REC Off antimicrobials and monitoring Subjective Date/time seen: 01/17/20 15:35 Interval history: sedated and intubated Exam Narrative: Exam Narrative: afebrile since last visit. No pressors Const: General: no acute distress Neck: Neck: no JVD Resp: Effort & Inspection: normal respiratory effort Auscultation: clear to auscultation bilaterally Cardio: Rate: tachycardic Rhythm: regular rhythm Heart sounds: no gallops and no murmurs GI: Inspection: non-distended GI Palp: Yes Soft to palpation and No Tenderness to palpation present (GI) Urinary Catheter: Urinary Catheter: patent and draining Skin: General skin exam: normal color and no rashes or lesions noted Extrem: General: normal to inspection Objective Data Vital Signs Vital Signs: Vital Signs - 24 hr 01/16/20 16:00 01/16/20 18:00 01/16/20 20:00 Temperature 37.1 C 37.2 C Pulse Rate 94 93 105 H Respiratory Rate 20 20 22 H Blood Pressure 102/56 L 117/57 L 140/69 Pulse Oximetry 97 97 96 01/16/20 20:22 01/16/20 20:40 01/16/20 22:00 Temperature Pulse Rate 110 H 130 H 102 H Respiratory Rate 32 H 25 H Blood Pressure 102/58 L Pulse Oximetry 94 87 L 100 01/16/20 23:32 01/17/20 00:00 01/17/20 02:00 Temperature 37.2 C Pulse Rate 98 103 H 103 H Respiratory Rate 23 H 21 H Blood Pressure 120/57 L 125/68 Pulse Oximetry 99 97 98 01/17/20 02:29 01/17/20 04:00 01/17/20 05:06 Temperature 36.7 C Pulse Rate 109 H 107 H 102 H Respiratory Rate 24 H Blood Pressure 113/58 L Pulse Oximetry 96 96 98 01/17/20 06:00 01/17/20 08:00 01/17/20 10:00 Temperature 36.5 C Pulse Rate 97 106 H 103 H Respiratory Rate 24 H 22 H 21 H Blood Pressure 114/61 139/57 L 98/56 L Pulse Oximetry 97 97 96 01/17/20 10:57 01/17/20 11:51 01/17/20 12:00 Temperature 37.3 C Pulse Rate 109 H 120 H 94 Respiratory Rate 22 H 24 H Blood Pressure 119/49 L Pulse Oximetry 98 95 95 01/17/20 14:00 01/17/20 15:05 Temperature Pulse Rate 126 H 107 H Respiratory Rate 24 H Blood Pressure 107/60 Pulse Oximetry 94 97 Intake/Output Intake/Output: Intake & Output 01/14/20 01/15/20 01/16/20 01/17/20 23:59 23:59 23:59 23:59 Intake Total 2101 1738 2081 799 Output Total 2050 1150 1350 1200 Balance 51 588 731 -401 Meds/Results Medications: Active Medications Generic Name Dose Route Start Last Admin Trade Name Freq PRN Reason Stop Dose Admin Acetaminophen 650 mg 01/04/20 15:50 01/16/20 14:08 Tylenol Tablet PO 650 mg Q6H PRN Administration Mild Pain (1-3) or Fever Atorvastatin Calcium 40 mg 01/04/20 21:00 01/16/20 20:04 Lipitor PO 40 mg HS LUCIANO Administration Dextrose 12.5 gm 01/04/20 17:07 Dextrose 50% Syringe IV PUSH PRN PRN Hypoglycemia Protocol Enoxaparin Sodium 100 mg 01/13/20 21:00 01/16/20 20:04 Lovenox SUB-Q 100 mg Q24H LUCIANO Administration Furosemide 20 mg 01/17/20 09:00 01/17/20 09:17 Lasix Inj IV PUSH 01/17/20 21:01 20 mg Q12H LUCIANO Administration Glucagon 1 mg 01/04/20 17:07 Glucagon For Inj IM PRN PRN Hypoglycemia Protocol Glucose 15 gm 01/04/20 17:07 Glutose 15 PO PRN PRN Hypoglycemia Protocol Dextrose 1,000 mls @ 100 mls/hr 01/04/20 17:07 Dextrose 5% 1,000 Ml IVPB PRN PRN Hypoglycemia Protocol Midazolam HCl 50 mg in 100 mls @ 4 mls/hr 01/10/20 04:35 01/17/20 14:00 Versed 50 Mg/D5w 100 Ml IV CONT 2 mg/hr .Q25H LUCIANO 4 mls/hr Titration Protocol 2 MG/HR Fentanyl Citrate 2,500 mcg in 250 mls @ 10 mls/hr 01/10/20 04:35 01/17/20 14:0
[2020-01-17 19:03] LABS: Glucose Point of Care 190 (65-105)
[2020-01-17] MEDS: ENOXAPARIN 100 MG/ML SYRINGE SUB-Q (20:13)
[2020-01-17] MEDS: ATORVASTATIN 40 MG TABLET PO (20:14)
[2020-01-17] MEDS: ACETAMINOPHEN 325 MG TABLET 650 MG PO (22:09)
[2020-01-17 23:48] LABS: Glucose Point of Care 188 (65-105)
[2020-01-18] VITALS (21 sets, daily range): BP systolic 107–163; BP diastolic 55–70; PULSE 98–140; RESP 21–33; TEMP 36.9–38.6; O2SAT 91–98
[2020-01-18 04:13] LABS: Hematocrit 24.2 % (42.0-52.0); Hemoglobin 7.3 g/dL (14.0-18.0); Mean Corpuscular HGB Conc 30.2 g/dl (32-36); Mean Corpuscular Hemoglobin 25.6 pg (26-34); Mean Corpuscular Volume 84.9 fl (80-100); Mean Platelet Volume 11.3 fl (7.4-10.4); Platelet Count Result 261 k/mm3 (150-375); Red Blood Count 2.85 M/mm3 (4.6-6.20); Red Cell Distribution Width 18.1 % (11.5-14.5); White Blood Count 7.7 K/mm3 (4.5-10.0)
[2020-01-18 04:40] LABS: D Dimer 7.39 ug/mL (<0.48)
[2020-01-18 04:59] LABS: Alveolar/Arterial O2 Gradient 261.1 mmHg; Base Excess ABG 3.1 mEq/l (+/-2.0); Carboxyhemoglobin 0.3 % THb (0-2.0); Fractional Inspired Oxygen 50 %; HCO3 ABG 26.7 mEq/l (22.0-26.0); Methemoglobin ABG 0.4 %THb (0-1.5); Oxygen Content ABG 10.2 %vol (16.0-22.0); Oxygen Saturation ABG 90.5 % (95.0-100.0); Oxyhemoglobin 88.1 % THb (90.0-100.0); PCO2 ABG 36.6 mmHg (35.0-45.0); PO2 ABG 54.2 mmHg (80.0-100.0); PO2 FiO2 Ratio Arterial Blood 1.08 %; Reduced Hemoglobin 11.2 %THb (0-5.0); Total Hemoglobin 8.2 g/dL (12.0-18.0); pH ABG 7.481 (7.350-7.450)
[2020-01-18 05:00] LABS: Device VENTILATOR; Modified Allen's Test Unable to perform; Site Drawn LEFT RADIAL
[2020-01-18 05:01] LABS: Alanine Aminotransferase 20 U/L (4-50); Albumin Level 2.6 g/dL (3.5-5.1); Alkaline Phosphatase 142 U/L (38-126); Aspartate Amino Transferase 51 U/L (17-59); Bilirubin,Total 0.6 mg/dL (0.2-1.3); Blood Urea Nitrogen 28 mg/dL (9-20); Calcium 7.2 mg/dL (8.4-10.2); Carbon Dioxide 30 mmol/L (22-30); Chloride 107 mmol/L (98-107); Estimated CRCL calculation 75 ml/min; Estimated Glomerular Filt Rate > 60; Glucose 202 mg/dL (75-110); Lactate Dehydrogenase 593 U/L (313-618); Magnesium 2.5 mg/dL (1.6-2.3); Phosphorus 3.1 mg/dL (2.5-4.5); Potassium 4.1 mmol/L (3.4-5.0); Sodium 140 mmol/L (137-145)
[2020-01-18 05:01] LABS: Arterial Blood Gas PEEP 12 cmH2O; Arterial Blood Gas Tidal Volume 500 ml; Arterial Blood Gas Vent Mode CMV; Arterial Blood Gas Ventilator rate 20 /MIN
[2020-01-18 05:24] LABS: CRP 41.1 mg/dL (<1.0)
[2020-01-18] MEDS: PYRIDOSTIGMINE BROMIDE 60 MG TABLET PO ×3 (05:24→20:50)
[2020-01-18 05:40] LABS: Glucose Point of Care 187 (65-105)
[2020-01-18] MEDS: PANTOPRAZOLE SODIUM IV 40 MG VIAL IV PUSH (07:53)
--- NOTE | 2020-01-18 09:43 | WPDINTPN ---
Progress Note: A&P Assessment and Plan (1) Acute respiratory failure with hypoxia: Code(s): J96.01 - Acute respiratory failure with hypoxia Status: Acute Assessment and Plan: Acute respiratory failure secondary to positive COVID-19. Intubated on 01/10/2020 - Pt on presentation did not have any respiratory symptoms but over his hospital stay he has became hypoxic requiring intubation - CT angiogram of lung on 01/08/2020: No pulmonary embolism, moderate amount of ground- glass opacities were seen. - 01/08 transferred to ICU and SARS-CoV-2 PCR positive - Chest x-ray shows stable diffuse bilateral disease, ABGs reviewed, continue CMV mode of ventilation, will increase FiO2 60% and tidal volume to 500 mL, peep of 12. - continue airborne, droplet and contact isolation. - Patient status post 5 day course of Solu-Medrol 1 mg/kg/day - following Troponin, LDH, D-Dimer, CRP, Procal, Ferritin periodically - infectious disease following the patient - sedated with fentanyl and Versed infusion, sedation vacation per protocol - will diurese again today (2) Acute retention of urine: Code(s): R33.8 - Other retention of urine Status: Acute Assessment and Plan: Taken to OR 01/03 for cysto and underwent cautery. CBI post procedure and stopped yesterday as urine has cleared Creatinine stable. Since creatinine stable urologist not going to pursue stent or nephrostomy tube (3) Prostate cancer: Code(s): C61 - Malignant neoplasm of prostate Status: Acute Assessment and Plan: Recurrent and blocking urethra. Was opened and new catheter placed. (4) Hydronephrosis: Code(s): N13.30 - Unspecified hydronephrosis Status: Acute Assessment and Plan: As above. Creatinine stable. - blocked ureter probable nonfunctioning kidney so no stent or nephrostomy tube planned per urology. (5) HTN (hypertension): Qualifiers: Hypertension type: essential hypertension Qualified Code(s): I10 - Essential (primary) hypertension Code(s): I10 - Essential (primary) hypertension Status: Acute Assessment and Plan: Blood pressure well controlled. hold p.o. blood pressure meds (6) Diabetes: Qualifiers: Diabetes mellitus type: type 2 Code(s): E11.9 - Type 2 diabetes mellitus without complications Status: Acute Assessment and Plan: patient is on sliding scale. (7) Anemia: Qualifiers: Anemia type: other cause Other causes of anemia: acute posthemorrhagic Qualified Code(s): D62 - Acute posthemorrhagic anemia Code(s): D64.9 - Anemia, unspecified Status: Acute Assessment and Plan: patient was transfuse 1 unit of packed RBCs on 01/04 For hemoglobin of 6.7. Likely related to hematuria - patient also received a unit of packed RBCs on 01/11/2020 - hemoglobin remains stable (8) DVT (deep venous thrombosis): Code(s): I82.409 - Acute embolism and thrombosis of unspecified deep veins of unspecified lower extremity Status: Acute Assessment and Plan: Recent right lower extremity DVT and subsequent IVC filter placed approximately 14 day prior to admission, due to hematuria. CTA negative for PE. - echocardiogram on 01/10/2020 showed EF of 60-65% with normal LV systolic function. Mild pulmonary hypertension with RVSP of 40 mmHg avoid to moderate pulmonary regurgitation. - right lower extremity venous Dopplers done on 01/13/2020: No lower extremity DVT - discontinued heparin infusion, started patient on Lovenox 1 mg /kg q.day (9) Myasthenia gravis: Code(s): G70.00 - Myasthenia gravis without (acute) exacerbation Status: Acute Assessment and Plan: Stable. Continue pyridostigmine. Status post steroids (10) Swelling of right lower extremity: Code(s): M79.89 - Other specified soft tissue disorders Status: Acute
--- NOTE | 2020-01-18 10:39 | PCDIET ---
ICU Rounding Note: Patient tolerating Vital 1.5 at 55mL/hr goal rate with Pro-Stat flush daily. No issues reported. Last recorded weight is 99.2kg which is slightly decreased. Bowel Motility: BM x 3 on 01/17/20. Labs Reviewed: Glu (187), BUN (28), Alb (2.6), Gibran Ca (8.32) Meds Noted: Fentanyl, Novolog, Versed, Protonix, Lasix, Mestinon, Miralax prn Additional Notes: No documented skin breakdown. Following daily in ICU rounds. Assessing/reassessing every Wednesday/Wednesday.
[2020-01-18] MEDS: FUROSEMIDE INJ 40 MG/4 ML VIAL IV PUSH (10:57)
[2020-01-18 11:44] LABS: Glucose Point of Care 205 (65-105)
[2020-01-18] MEDS: INSULIN ASPART (*BKC) 100 UNITS/ML SUB-Q ×2 (11:45→18:10)
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
--- NOTE | 2020-01-18 15:20 | PM.IMPN ---
Progress Note: A&P Assessment and Plan (1) Acute respiratory failure with hypoxia: Code(s): J96.01 - Acute respiratory failure with hypoxia Status: Acute Assessment and Plan: Result of pneumonia secondary to COVID-19 infection. Appreciate help from corn grinder. Spoke with corn grinder today. Patient remains on ventilator with sedation discontinued but not awakening. Will continue to monitor. (2) Pneumonia due to COVID-19 virus: Code(s): U07.1 - COVID-19; J12.89 - Other viral pneumonia Status: Acute Assessment and Plan: Chest x-ray today with continued diffuse bilateral lung disease. COVID-19 testing positive. Appreciate input from Infectious Disease. Continue supportive care. (3) Acute retention of urine: Code(s): R33.8 - Other retention of urine Status: Acute Assessment and Plan: Appreciate help from urology. Now S/P cystoscopy with clot evacuation and cauterization of bladder neck on 01/04/2020. Had CBI post procedure which was stopped on 01/08/2020. Creatinine remains normal at 0.90 today. Will continue to monitor. (4) Prostate cancer: Code(s): C61 - Malignant neoplasm of prostate Status: Acute Assessment and Plan: Locally advanced and metastatic prostate cancer confirmed on cystoscopy from 01/04/2020. Appreciate help from urology. (5) Hydronephrosis: Qualifiers: Hydronephrosis type: other Qualified Code(s): N13.39 - Other hydronephrosis Code(s): N13.30 - Unspecified hydronephrosis Status: Acute Assessment and Plan: Indwelling Henry catheter. Renal function normal as noted above. (6) HTN (hypertension): Qualifiers: Hypertension type: essential hypertension Qualified Code(s): I10 - Essential (primary) hypertension Code(s): I10 - Essential (primary) hypertension Status: Acute Assessment and Plan: Blood pressure reviewed on 01/18/2020 and stable. Not on medication. Will monitor. (7) Diabetes: Qualifiers: Diabetes mellitus type: type 2 Diabetes mellitus long chain beamer insulin use: without alf use Diabetes mellitus complication status: without complication Qualified Code(s): E11.9 - Type 2 diabetes mellitus without complications Code(s): E11.9 - Type 2 diabetes mellitus without complications Status: Acute Assessment and Plan: Glucose reviewed on 01/18/2020. Glucose still with some elevated readings but recently on steroids. Will continue to monitor. Continue sliding scale insulin. Adjust treatment as needed. (8) Anemia: Qualifiers: Anemia type: other cause Other causes of anemia: acute posthemorrhagic Qualified Code(s): D62 - Acute posthemorrhagic anemia Code(s): D64.9 - Anemia, unspecified Status: Acute Assessment and Plan: Hemoglobin 7.4 on admission related to acute blood loss anemia from the hematuria. Patient transfused 1 unit of PRBC on 01/05/2020. Required 2nd unit PRBC on 01/11/2020. Hemoglobin stable at 7.3 today. Will continue to monitor. Transfuse only if needed. (9) DVT (deep venous thrombosis): Code(s): I82.409 - Acute embolism and thrombosis of unspecified deep veins of unspecified lower extremity Status: Acute Assessment and Plan: Recent right lower extremity DVT and subsequent IVC filter placed due to hematuria approximately 2 weeks prior to admission. Venous Doppler of left lower extremity negative on 01/13/2020. CTA negative for pulmonary embolism. Remains on therapeutic Lovenox with current COVID-19 infection. (10) Myasthenia gravis: Code(s): G70.00 - Myasthenia gravis without (acute) exacerbation Status: Acute Assessment and Plan: Continue pyridostigmine. Completed 5 day course of steroids. Time Spent With Patient Time with patient: 15 - 25 minutes Subjective Date/time seen: 01/18/20 15:20 Interval history: Date of Service:
[2020-01-18 18:56] LABS: Glucose Point of Care 224 (65-105)
[2020-01-18] MEDS: ACETAMINOPHEN 325 MG TABLET 650 MG PO (20:49)
[2020-01-18] MEDS: ATORVASTATIN 40 MG TABLET PO (20:50)
[2020-01-18] MEDS: ENOXAPARIN 100 MG/ML SYRINGE SUB-Q (20:50)
[2020-01-18 23:43] LABS: Glucose Point of Care 122 (65-105)
[2020-01-19] VITALS (26 sets, daily range): BP systolic 80–155; BP diastolic 46–72; PULSE 78–120; RESP 15–33; TEMP 37.1–38.6; O2SAT 94–99
[2020-01-19 04:32] LABS: Alveolar/Arterial O2 Gradient 281.9 mmHg; Base Excess ABG 1.9 mEq/l (+/-2.0); Carboxyhemoglobin 0.3 % THb (0-2.0); Fractional Inspired Oxygen 55 %; HCO3 ABG 25.4 mEq/l (22.0-26.0); Methemoglobin ABG 0.1 %THb (0-1.5); Oxygen Content ABG 12.8 %vol (16.0-22.0); Oxygen Saturation ABG 95.4 % (95.0-100.0); Oxyhemoglobin 93.3 % THb (90.0-100.0); PCO2 ABG 35.1 mmHg (35.0-45.0); PO2 ABG 71.2 mmHg (80.0-100.0); PO2 FiO2 Ratio Arterial Blood 1.29 %; Reduced Hemoglobin 6.3 %THb (0-5.0); Total Hemoglobin 9.7 g/dL (12.0-18.0); pH ABG 7.477 (7.350-7.450)
[2020-01-19 04:33] LABS: Device VENTILATOR; Modified Allen's Test Pass; Site Drawn RIGHT RADIAL
[2020-01-19 04:34] LABS: Arterial Blood Gas Ventilator rate 20 /MIN
[2020-01-19 04:35] LABS: Arterial Blood Gas PEEP 12 cmH2O; Arterial Blood Gas Tidal Volume 500 ml; Arterial Blood Gas Vent Mode CMV
[2020-01-19] MEDS: INSULIN ASPART (*BKC) 100 UNITS/ML SUB-Q ×4 (05:09→23:43)
[2020-01-19 05:21] LABS: Hematocrit 21.1 % (42.0-52.0); Mean Corpuscular HGB Conc 31.3 g/dl (32-36); Mean Corpuscular Hemoglobin 26.2 pg (26-34); Mean Corpuscular Volume 83.7 fl (80-100); Mean Platelet Volume 11.5 fl (7.4-10.4); Platelet Count Result 252 k/mm3 (150-375); Red Blood Count 2.52 M/mm3 (4.6-6.20); Red Cell Distribution Width 18.7 % (11.5-14.5); White Blood Count 7.9 K/mm3 (4.5-10.0)
[2020-01-19] MEDS: PYRIDOSTIGMINE BROMIDE 60 MG TABLET PO ×3 (05:24→20:01)
[2020-01-19 05:46] LABS: Hemoglobin 6.6 g/dL (14.0-18.0)
[2020-01-19 05:53] LABS: Alanine Aminotransferase 33 U/L (4-50); Albumin Level 2.5 g/dL (3.5-5.1); Alkaline Phosphatase 142 U/L (38-126); Aspartate Amino Transferase 60 U/L (17-59); Bilirubin,Total 0.5 mg/dL (0.2-1.3); Blood Urea Nitrogen 36 mg/dL (9-20); Calcium 7.3 mg/dL (8.4-10.2); Carbon Dioxide 29 mmol/L (22-30); Chloride 107 mmol/L (98-107); Estimated CRCL calculation 62 ml/min; Estimated Glomerular Filt Rate > 60; Glucose 210 mg/dL (75-110); Magnesium 2.5 mg/dL (1.6-2.3); Phosphorus 3.2 mg/dL (2.5-4.5); Potassium 3.5 mmol/L (3.4-5.0); Sodium 140 mmol/L (137-145)
[2020-01-19 06:01] LABS: Glucose Point of Care 224 (65-105)
[2020-01-19 06:59] LABS: CRP 40.7 mg/dL (<1.0)
[2020-01-19] MEDS: PANTOPRAZOLE SODIUM IV 40 MG VIAL IV PUSH (09:00)
[2020-01-19] MEDS: ACETAMINOPHEN 325 MG TABLET 650 MG PO (09:32)
[2020-01-19] MEDS: INSULIN GLARGINE (*BKC) 100 UNITS/ML SUB-Q (10:35)
--- NOTE | 2020-01-19 11:02 | PCDIET ---
Nutrition Follow-Up Complete: Nutrition Diagnosis: Inadequate oral intake related to oral intubation as evidenced by NPO status. Nutrition Goal: Patient to meet estimated nutritional needs. Goal met. Patient tolerating Vital 1.5 at goal rate of 55mL/hr with Pro-Stat flush 1x daily. No elevated residuals reported. Last recorded weight is 99.2 kg which is decreased. Bowel Motility: Watery diarrhea, per RN. FMS initiated. Labs Reviewed: Hgb (6.6), Hct (21.1), Glu (224), BUN (36), Alb (2.5), Gibran Ca (8.5) Meds Noted: KCl, Mestinon, Precedex, Fentanyl, Novolog, Lantus, Versed, Protonix Additional Notes: No documented skin breakdown. Patient receiving RBC today. Nutrition Monitoring and Evaluation: Follow up every Wednesday/Wednesday. Follow daily in ICU rounds.
[2020-01-19 12:12] LABS: Glucose Point of Care 247 (65-105)
--- NOTE | 2020-01-19 13:04 | WPDINTPN ---
Progress Note: A&P Assessment and Plan (1) Acute respiratory failure with hypoxia: Code(s): J96.01 - Acute respiratory failure with hypoxia Status: Acute Assessment and Plan: Acute respiratory failure secondary to positive COVID-19. Intubated on 01/10/2020 - Pt on presentation did not have any respiratory symptoms but over his hospital stay he has became hypoxic requiring intubation - CT angiogram of lung on 01/08/2020: No pulmonary embolism, moderate amount of ground- glass opacities were seen. - 01/08 transferred to ICU and SARS-CoV-2 PCR positive - Chest x-ray shows stable diffuse bilateral disease, ABGs reviewed, continue CMV mode of ventilation, will increase FiO2 60% and tidal volume to 500 mL, peep of 12. - continue airborne, droplet and contact isolation. - Patient status post 5 day course of Solu-Medrol 1 mg/kg/day - following Troponin, LDH, D-Dimer, CRP, Procal, Ferritin periodically - infectious disease following the patient - fentanyl and Versed were discontinued on 01/18/2020, started on Precedex, opens his eyes and follows simple commands this morning. Patient is tachycardic and tachypneic, will had Versed infusion. - patient has been diuresing well, will hold diuresis today as BUN has increased. will diurese in a.m. (2) Acute retention of urine: Code(s): R33.8 - Other retention of urine Status: Acute Assessment and Plan: Taken to OR 01/03 for cysto and underwent cautery. CBI post procedure and stopped yesterday as urine has cleared Creatinine stable. Since creatinine stable urologist not going to pursue stent or nephrostomy tube (3) Prostate cancer: Code(s): C61 - Malignant neoplasm of prostate Status: Acute Assessment and Plan: Recurrent and blocking urethra. Was opened and new catheter placed. (4) Hydronephrosis: Qualifiers: Hydronephrosis type: other Qualified Code(s): N13.39 - Other hydronephrosis Code(s): N13.30 - Unspecified hydronephrosis Status: Acute Assessment and Plan: As above. Creatinine stable. - blocked ureter probable nonfunctioning kidney so no stent or nephrostomy tube planned per urology. (5) HTN (hypertension): Qualifiers: Hypertension type: essential hypertension Qualified Code(s): I10 - Essential (primary) hypertension Code(s): I10 - Essential (primary) hypertension Status: Acute Assessment and Plan: Blood pressure well controlled. hold p.o. blood pressure meds (6) Diabetes: Qualifiers: Diabetes mellitus type: type 2 Diabetes mellitus assisted insulin use: without assisted use Diabetes mellitus complication status: without complication Qualified Code(s): E11.9 - Type 2 diabetes mellitus without complications Code(s): E11.9 - Type 2 diabetes mellitus without complications Status: Acute Assessment and Plan: patient is on sliding scale And Accu-Cheks, will add low-dose Lantus. (7) Anemia: Qualifiers: Anemia type: other cause Other causes of anemia: acute posthemorrhagic Qualified Code(s): D62 - Acute posthemorrhagic anemia Code(s): D64.9 - Anemia, unspecified Status: Acute Assessment and Plan: patient was transfused 1 unit of packed RBCs on 01/04 and 1 unit on 01/10 - hemoglobin dropped to 6.6 this morning, will be receiving 1 unit of packed RBCs - will hold therapeutic Lovenox which she has been given q.day (8) DVT (deep venous thrombosis): Code(s): I82.409 - Acute embolism and thrombosis of unspecified deep veins of unspecified lower extremity Status: Acute Assessment and Plan: Recent right lower extremity DVT and subsequent IVC filter placed approximately 14 day prior to admission, due to hematuria. CTA negative for PE. - echocardiogram on 01/10/2020 showed EF of 60-65% with normal LV systolic function. Mild pulmonary hypertension wi
[2020-01-19 13:53] LABS: Hematocrit 25.5 % (42.0-52.0); Hemoglobin 7.9 g/dL (14.0-18.0)
--- NOTE | 2020-01-19 15:02 | PM.IMPN ---
Progress Note: A&P Assessment and Plan (1) Acute respiratory failure with hypoxia: Code(s): J96.01 - Acute respiratory failure with hypoxia Status: Acute Assessment and Plan: Result of pneumonia secondary to COVID-19 infection. Appreciate help from chemical equipment repairer. Spoke with chemical equipment repairer again today. Patient remains on ventilator. Currently on Precedex with Versed added earlier today. [employer]one Classifier Tender was able to have conference call with patient's family regarding all options including PEG tube and tracheostomy placement with LTAC placement or potentially comfort care measures. Family will consider options and notify of their decision by Wednesday. Will continue monitor in the meantime. Telemetry reviewed on 01/19/2020 with irregular rhythm with heart rate controlled. (2) Pneumonia due to COVID-19 virus: Code(s): U07.1 - COVID-19; J12.89 - Other viral pneumonia Status: Acute Assessment and Plan: Chest x-ray today with continued diffuse bilateral lung disease without significant change. COVID-19 testing positive. Appreciate input from Infectious Disease. Continue supportive care. (3) Anemia: Qualifiers: Anemia type: other cause Other causes of anemia: acute posthemorrhagic Qualified Code(s): D62 - Acute posthemorrhagic anemia Code(s): D64.9 - Anemia, unspecified Status: Acute Assessment and Plan: Hemoglobin 7.4 on admission related to acute blood loss anemia from the hematuria. Patient transfused 1 unit of PRBC on 01/05/2020. Required 2nd unit PRBC on 01/11/2020. Hemoglobin decreased to 6.6 again this morning with transfusion of 1 unit PRBC. Repeat hemoglobin 7.9. Will continue to monitor and transfuse as needed. (4) Prostate cancer: Code(s): C61 - Malignant neoplasm of prostate Status: Acute Assessment and Plan: Locally advanced and metastatic prostate cancer confirmed on cystoscopy from 01/04/2020. Appreciate help from urology. Family now considering options for care as noted above. (5) Acute retention of urine: Code(s): R33.8 - Other retention of urine Status: Acute Assessment and Plan: Appreciate help from urology. Now S/P cystoscopy with clot evacuation and cauterization of bladder neck on 01/04/2020. Had CBI post procedure which was stopped on 01/08/2020. Creatinine remains normal at 1.10 today. Will continue to monitor. (6) Hydronephrosis: Qualifiers: Hydronephrosis type: other Qualified Code(s): N13.39 - Other hydronephrosis Code(s): N13.30 - Unspecified hydronephrosis Status: Acute Assessment and Plan: Indwelling Henry catheter. Renal function normal as noted above. (7) HTN (hypertension): Qualifiers: Hypertension type: essential hypertension Qualified Code(s): I10 - Essential (primary) hypertension Code(s): I10 - Essential (primary) hypertension Status: Acute Assessment and Plan: Blood pressure reviewed on 01/19/2020 and low normal but stable. Not on medication. Will monitor. (8) Diabetes: Qualifiers: Diabetes mellitus complication status: without complication Diabetes mellitus lobsterman insulin use: without lobsterman use Diabetes mellitus type: type 2 Qualified Code(s): E11.9 - Type 2 diabetes mellitus without complications Code(s): E11.9 - Type 2 diabetes mellitus without complications Status: Acute Assessment and Plan: Glucose reviewed on 01/19/2020. Glucose still with readings above 200 but recently on steroids and family considering options. Will continue to monitor. Continue sliding scale insulin. Adjust treatment as needed. (9) DVT (deep venous thrombosis): Code(s): I82.409 - Acute embolism and thrombosis of unspecified deep veins of unspecified lower extremity Status: Acute Assessment and Plan: Recent right lower extremity DVT and subsequent IVC filter placed due to hematuria ap
--- NOTE | 2020-01-19 15:36 | WPDINFPN2 ---
Progress Note: A&P Assessment and Plan (1) Pneumonia due to COVID-19 virus: Code(s): U07.1 - COVID-19; J12.89 - Other viral pneumonia Status: Acute Assessment and Plan: 1. Fever and hypoxemia due to CoVid viral pneumonia. Ongoing temperature. 2. Chronic steroid, stress dose stopped 3. Prostate cancer 4. DVT REC Off antimicrobials. Check C diff, due to fever/liquid stool/recent antibacterials/steroid administration. Subjective Date/time seen: 01/19/20 15:36 Interval history: sedated and intubated no pressors Exam Narrative: Exam Narrative: t max 38.6 Const: General: no acute distress Resp: Effort & Inspection: normal respiratory effort Auscultation: clear to auscultation bilaterally and diminished lung sounds Cardio: Rate: regular rate Rhythm: regular rhythm Heart sounds: no gallops, no murmurs and no rubs GI: Inspection: non-distended GI Palp: Yes Soft to palpation, No Tenderness to palpation present (GI) and No Guarding due to palpation present (GI) Other: flexiseal with thin brown Urinary Catheter: Urinary Catheter: patent and draining and urine clear Objective Data Vital Signs Vital Signs: Vital Signs - 24 hr 01/18/20 16:00 01/18/20 17:27 01/18/20 18:00 Temperature 38.0 C H Pulse Rate 120 H 116 H 122 H Respiratory Rate 21 H 27 H Blood Pressure 129/56 L 107/66 Pulse Oximetry 97 95 96 01/18/20 20:00 01/18/20 20:49 01/18/20 21:16 Temperature 38.3 C H 38.3 C H Pulse Rate 120 H 118 H Respiratory Rate 26 H Blood Pressure 129/60 Pulse Oximetry 97 97 01/18/20 21:49 01/18/20 21:51 01/19/20 00:00 Temperature 38.0 C H 37.7 C H Pulse Rate 108 H 92 Respiratory Rate 25 H 24 H Blood Pressure 129/60 88/50 L Pulse Oximetry 97 95 01/19/20 00:14 01/19/20 02:00 01/19/20 04:00 Temperature 37.1 C Pulse Rate 87 78 82 Respiratory Rate 27 H 33 H Blood Pressure 86/49 L 80/46 L Pulse Oximetry 97 95 96 01/19/20 04:10 01/19/20 06:00 01/19/20 08:00 Temperature 38.6 C H Pulse Rate 82 81 108 H Respiratory Rate 28 H 33 H Blood Pressure 90/46 L 149/71 H Pulse Oximetry 95 94 97 01/19/20 08:39 01/19/20 09:12 01/19/20 09:30 Temperature 38.6 C H 38.6 C H Pulse Rate 117 H 120 H 120 H Respiratory Rate 26 H 24 H Blood Pressure 148/68 H 155/65 H Pulse Oximetry 95 95 96 01/19/20 09:32 01/19/20 10:00 01/19/20 10:30 Temperature 38.6 C H 38.1 C H 38.1 C H Pulse Rate 110 H 114 H Respiratory Rate 30 H 32 H Blood Pressure 121/72 121/72 Pulse Oximetry 95 95 01/19/20 10:32 01/19/20 11:51 01/19/20 12:00 Temperature 38.1 C H 37.6 C H 37.6 C H Pulse Rate 93 78 Respiratory Rate 21 H 26 H Blood Pressure 100/62 94/62 L Pulse Oximetry 96 95 01/19/20 12:28 01/19/20 14:45 Temperature Pulse Rate 86 83 Respiratory Rate Blood Pressure Pulse Oximetry 94 95 Intake/Output Intake/Output: Intake & Output 01/16/20 01/17/20 01/18/20 01/19/20 23:59 23:59 23:59 23:59 Intake Total 2081 1000 2419.2 1063 Output Total 1350 1550 2325 500 Balance 731 -550 94.2 563 Meds/Results Medications: Active Medications Generic Name Dose Route Start Last Admin Trade Name Freq PRN Reason Stop Dose Admin Acetaminophen 650 mg 01/04/20 15:50 01/19/20 09:32 Tylenol Tablet PO 650 mg Q6H PRN Administration Mild Pain (1-3) or Fever Atorvastatin Calcium 40 mg 01/04/20 21:00 01/18/20 20:50 Lipitor PO 40 mg HS LUCIANO Administration Dextrose 12.5 gm 01/04/20 17:07 Dextrose 50% Syringe IV PUSH PRN PRN Hypoglycemia Protocol Enoxaparin Sodium 100 mg 01/13/20 21:00 01/18/20 20:50 Lovenox SUB-Q 100 mg Q24H LUCIANO Administration Glucagon 1 mg 01/04/20 17:07 Glucagon For Inj IM PRN PRN Hypoglycemia Protocol Glucose 15 gm 01/04/20 17:07 Glutose 15 PO PRN PRN Hypoglycemia Protocol Dextrose 1,000 mls @ 100 mls/hr 01/04/20 17:07 Dextrose 5% 1,000 Ml IVPB RI
[2020-01-19 18:33] LABS: Glucose Point of Care 246 (65-105)
[2020-01-19] MEDS: ATORVASTATIN 40 MG TABLET PO (20:01)
[2020-01-19 23:50] LABS: Glucose Point of Care 226 (65-105)
[2020-01-20] VITALS (26 sets, daily range): BP systolic 100–144; BP diastolic 53–70; PULSE 83–115; RESP 14–48; TEMP 37.2–38.7; O2SAT 90–98
[2020-01-20 04:21] LABS: Alveolar/Arterial O2 Gradient 281.6 mmHg; Base Excess ABG 1.3 mEq/l (+/-2.0); Carboxyhemoglobin 0.3 % THb (0-2.0); Fractional Inspired Oxygen 55 %; Methemoglobin ABG 0.1 %THb (0-1.5); Oxygen Content ABG 14.7 %vol (16.0-22.0); Oxygen Saturation ABG 94.9 % (95.0-100.0); PCO2 ABG 36.4 mmHg (35.0-45.0); PO2 ABG 70.1 mmHg (80.0-100.0); PO2 FiO2 Ratio Arterial Blood 1.27 %; Reduced Hemoglobin 6.6 %THb (0-5.0); Total Hemoglobin 11.2 g/dL (12.0-18.0); pH ABG 7.455 (7.350-7.450)
[2020-01-20 04:22] LABS: Device VENTILATOR; Modified Allen's Test Pass; Site Drawn RIGHT RADIAL
[2020-01-20 04:23] LABS: Arterial Blood Gas PEEP 12 cmH2O; Arterial Blood Gas Tidal Volume 500 ml; Arterial Blood Gas Vent Mode CMV; Arterial Blood Gas Ventilator rate 20 /MIN
[2020-01-20] MEDS: PYRIDOSTIGMINE BROMIDE 60 MG TABLET PO ×3 (05:35→20:19)
[2020-01-20 05:46] LABS: Hematocrit 24.9 % (42.0-52.0); Hemoglobin 7.9 g/dL (14.0-18.0); Mean Corpuscular HGB Conc 31.7 g/dl (32-36); Mean Corpuscular Hemoglobin 26.1 pg (26-34); Mean Corpuscular Volume 82.2 fl (80-100); Mean Platelet Volume 11.4 fl (7.4-10.4); Platelet Count Result 291 k/mm3 (150-375); Red Blood Count 3.03 M/mm3 (4.6-6.20); Red Cell Distribution Width 18.6 % (11.5-14.5); White Blood Count 10.3 K/mm3 (4.5-10.0)
[2020-01-20 05:52] LABS: Alanine Aminotransferase 42 U/L (4-50); Albumin Level 2.7 g/dL (3.5-5.1); Alkaline Phosphatase 159 U/L (38-126); Aspartate Amino Transferase 69 U/L (17-59); Bilirubin,Total 0.4 mg/dL (0.2-1.3); Blood Urea Nitrogen 41 mg/dL (9-20); Calcium 7.2 mg/dL (8.4-10.2); Carbon Dioxide 29 mmol/L (22-30); Chloride 108 mmol/L (98-107); Estimated CRCL calculation 74 ml/min; Estimated Glomerular Filt Rate > 60; Glucose 211 mg/dL (75-110); Magnesium 2.7 mg/dL (1.6-2.3); Phosphorus 3.5 mg/dL (2.5-4.5); Potassium 3.9 mmol/L (3.4-5.0); Sodium 140 mmol/L (137-145)
[2020-01-20] MEDS: INSULIN ASPART (*BKC) 100 UNITS/ML SUB-Q ×3 (06:47→23:49)
[2020-01-20] MEDS: PANTOPRAZOLE SODIUM IV 40 MG VIAL IV PUSH (09:48)
[2020-01-20] MEDS: INSULIN GLARGINE (*BKC) 100 UNITS/ML SUB-Q (09:49)
[2020-01-20] MEDS: FUROSEMIDE INJ 40 MG/4 ML VIAL IV PUSH ×2 (11:29→20:18)
[2020-01-20 11:49] LABS: Glucose Point of Care 190 (65-105)
--- NOTE | 2020-01-20 11:51 | WPDINTPN ---
Progress Note: A&P Assessment and Plan (1) Acute respiratory failure with hypoxia: Code(s): J96.01 - Acute respiratory failure with hypoxia Status: Acute Assessment and Plan: Acute respiratory failure secondary to positive COVID-19. Intubated on 01/10/2020 - Pt on presentation did not have any respiratory symptoms but over his hospital stay he has became hypoxic requiring intubation - CT angiogram of lung on 01/08/2020: No pulmonary embolism, moderate amount of ground- glass opacities were seen. - 01/08 transferred to ICU and SARS-CoV-2 PCR positive - Chest x-ray shows stable diffuse bilateral disease, ABGs reviewed. Went at adjustment for made. Will try to decrease the PEEP if he is able to tolerated. - continue airborne, droplet and contact isolation. - Patient status post 5 day course of Solu-Medrol 1 mg/kg/day - following Troponin, LDH, D-Dimer, CRP, Procal, Ferritin periodically - infectious disease following the patient - fentanyl and Versed were discontinued on 01/18/2020, started on Precedex. He was tachycardic and tachypneic yesterday and has been restarted back on Versed drip in addition to Precedex drip. - He has been diuresing well with Lasix. Will give Lasix today. (2) Acute retention of urine: Code(s): R33.8 - Other retention of urine Status: Acute Assessment and Plan: Taken to OR 01/03 for cysto and underwent cautery. CBI post procedure and stopped as urine has cleared Creatinine stable. Since creatinine stable urologist not going to pursue stent or nephrostomy tube For hydronephrosis. (3) Prostate cancer: Code(s): C61 - Malignant neoplasm of prostate Status: Acute Assessment and Plan: Recurrent and blocking urethra. New Henry's catheter has been placed by urologist during this admission. (4) Hydronephrosis: Qualifiers: Hydronephrosis type: other Qualified Code(s): N13.39 - Other hydronephrosis Code(s): N13.30 - Unspecified hydronephrosis Status: Acute Assessment and Plan: As above. Creatinine stable. - blocked ureter probable nonfunctioning kidney so no stent or nephrostomy tube planned per urology. (5) HTN (hypertension): Qualifiers: Hypertension type: essential hypertension Qualified Code(s): I10 - Essential (primary) hypertension Code(s): I10 - Essential (primary) hypertension Status: Acute Assessment and Plan: Blood pressure well controlled. hold p.o. blood pressure meds (6) Diabetes: Qualifiers: Diabetes mellitus complication status: without complication Diabetes mellitus prison insulin use: without intermodal customer service use Diabetes mellitus type: type 2 Qualified Code(s): E11.9 - Type 2 diabetes mellitus without complications Code(s): E11.9 - Type 2 diabetes mellitus without complications Status: Acute Assessment and Plan: patient is on sliding scale And Accu-Cheks, Continue low-dose Lantus. (7) Anemia: Qualifiers: Anemia type: other cause Other causes of anemia: acute posthemorrhagic Qualified Code(s): D62 - Acute posthemorrhagic anemia Code(s): D64.9 - Anemia, unspecified Status: Acute Assessment and Plan: patient was transfused 1 unit of packed RBCs on 01/04 and 1 unit on 01/10 With the 3rd unit given on 01/18. - H and H has been stable after had a transfusion yesterday. - will hold therapeutic Lovenox (8) DVT (deep venous thrombosis): Code(s): I82.409 - Acute embolism and thrombosis of unspecified deep veins of unspecified lower extremity Status: Acute Assessment and Plan: Recent right lower extremity DVT and subsequent IVC filter placed approximately 14 day prior to admission, due to hematuria. CTA negative for PE. - echocardiogram on 01/10/2020 showed EF of 60-65% with normal LV systolic function. Mild pulmonary hypertension with RVSP of 40 m
--- NOTE | 2020-01-20 14:41 | PM.IMPN ---
Progress Note: A&P Assessment and Plan (1) Acute respiratory failure with hypoxia: Code(s): J96.01 - Acute respiratory failure with hypoxia Status: Acute Assessment and Plan: Result of pneumonia secondary to COVID-19 infection. Appreciate help from clinical unit educator. Patient remains on ventilator With management per clinical unit educator. Currently on Precedex and Versed for sedation. Box Sorter was able to have conference call with patient's family on 01/19/2020 regarding all options including PEG tube and tracheostomy placement with LTAC placement or potentially comfort care measures. Family will consider options and notify of their decision by Wednesday. Will continue to monitor in the meantime. Telemetry reviewed on 01/20/2020 with sinus rhythm with heart rate controlled. (2) Pneumonia due to COVID-19 virus: Code(s): U07.1 - COVID-19; J12.89 - Other viral pneumonia Status: Acute Assessment and Plan: Chest x-ray today reviewed with continued diffuse bilateral lung disease without significant change. COVID-19 testing positive. Appreciate input from Infectious Disease. Continue supportive care. Noted to have fever up to 101.7 again this afternoon. Continue symptomatic treatment for now. (3) Anemia: Qualifiers: Anemia type: other cause Other causes of anemia: acute posthemorrhagic Qualified Code(s): D62 - Acute posthemorrhagic anemia Code(s): D64.9 - Anemia, unspecified Status: Acute Assessment and Plan: Hemoglobin 7.4 on admission related to acute blood loss anemia from the hematuria. Patient transfused 1 unit of PRBC on 01/05/2020. Required 2nd unit PRBC on 01/11/2020. Hemoglobin decreased to 6.6 again on 01/19/2020 with transfusion of 1 unit PRBC. Hemoglobin 7.9 today. Will continue to monitor and transfuse as needed. (4) Prostate cancer: Code(s): C61 - Malignant neoplasm of prostate Status: Acute Assessment and Plan: Locally advanced and metastatic prostate cancer confirmed on cystoscopy from 01/04/2020. Appreciate help from urology. Family now considering options for care as noted above. (5) Acute retention of urine: Code(s): R33.8 - Other retention of urine Status: Acute Assessment and Plan: Appreciate help from urology. Now S/P cystoscopy with clot evacuation and cauterization of bladder neck on 01/04/2020. Had CBI post procedure which was stopped on 01/08/2020. Creatinine remains normal at 0.90 today. Will continue to monitor. (6) Hydronephrosis: Qualifiers: Hydronephrosis type: other Qualified Code(s): N13.39 - Other hydronephrosis Code(s): N13.30 - Unspecified hydronephrosis Status: Acute Assessment and Plan: Indwelling Henry catheter. Renal function normal as noted above. (7) HTN (hypertension): Qualifiers: Hypertension type: essential hypertension Qualified Code(s): I10 - Essential (primary) hypertension Code(s): I10 - Essential (primary) hypertension Status: Acute Assessment and Plan: Blood pressure reviewed on 01/20/2020 and stable. Not on medication. Will monitor. (8) Diabetes: Qualifiers: Diabetes mellitus complication status: without complication Diabetes mellitus intermediate designer insulin use: without intermediate designer use Diabetes mellitus type: type 2 Qualified Code(s): E11.9 - Type 2 diabetes mellitus without complications Code(s): E11.9 - Type 2 diabetes mellitus without complications Status: Acute Assessment and Plan: Glucose reviewed on 01/20/2020. Glucose still with most readings above 200 but recently on steroids and family considering options. Will continue to monitor. Continue sliding scale insulin. Adjust treatment as needed. (9) DVT (deep venous thrombosis): Code(s): I82.409 - Acute embolism and thrombosis of unspecified deep veins of unspecified lower extremity Status: Acute Assessment
[2020-01-20] MEDS: ACETAMINOPHEN 325 MG TABLET 650 MG PO (16:35)
[2020-01-20 18:29] LABS: Glucose Point of Care 219 (65-105)
[2020-01-20] MEDS: ATORVASTATIN 40 MG TABLET PO (20:18)
[2020-01-20 23:46] LABS: Glucose Point of Care 210 (65-105)
[2020-01-21] VITALS (24 sets, daily range): BP systolic 98–145; BP diastolic 46–67; PULSE 93–120; RESP 19–31; TEMP 37.1–38.5; O2SAT 90–96
[2020-01-21 04:02] LABS: Alveolar/Arterial O2 Gradient 353.8 mmHg; Carboxyhemoglobin 0.1 % THb (0-2.0); Device VENTILATOR; Fractional Inspired Oxygen 65 %; HCO3 ABG 26.2 mEq/l (22.0-26.0); Methemoglobin ABG 0.3 %THb (0-1.5); Modified Allen's Test Pass; Oxygen Content ABG 17.5 %vol (16.0-22.0); Oxygen Saturation ABG 93.8 % (95.0-100.0); Oxyhemoglobin 92.2 % THb (90.0-100.0); PCO2 ABG 39.8 mmHg (35.0-45.0); PO2 ABG 66.4 mmHg (80.0-100.0); PO2 FiO2 Ratio Arterial Blood 1.02 %; Reduced Hemoglobin 7.4 %THb (0-5.0); Site Drawn LEFT RADIAL; Total Hemoglobin 13.5 g/dL (12.0-18.0); pH ABG 7.437 (7.350-7.450)
[2020-01-21 04:03] LABS: Arterial Blood Gas PEEP 8 cmH2O; Arterial Blood Gas Tidal Volume 500 ml; Arterial Blood Gas Vent Mode CMV; Arterial Blood Gas Ventilator rate 20 /MIN
[2020-01-21 06:01] LABS: Hematocrit 26.9 % (42.0-52.0); Hemoglobin 8.2 g/dL (14.0-18.0); Mean Corpuscular HGB Conc 30.5 g/dl (32-36); Mean Corpuscular Hemoglobin 25.5 pg (26-34); Mean Corpuscular Volume 83.5 fl (80-100); Mean Platelet Volume 11.8 fl (7.4-10.4); Platelet Count Result 350 k/mm3 (150-375); Red Blood Count 3.22 M/mm3 (4.6-6.20); Red Cell Distribution Width 18.7 % (11.5-14.5); White Blood Count 11.5 K/mm3 (4.5-10.0)
[2020-01-21 06:20] LABS: Alanine Aminotransferase 54 U/L (4-50); Albumin Level 2.7 g/dL (3.5-5.1); Alkaline Phosphatase 180 U/L (38-126); Aspartate Amino Transferase 100 U/L (17-59); Bilirubin,Total 0.4 mg/dL (0.2-1.3); Blood Urea Nitrogen 46 mg/dL (9-20); Calcium 7.3 mg/dL (8.4-10.2); Carbon Dioxide 30 mmol/L (22-30); Chloride 109 mmol/L (98-107); Estimated CRCL calculation 68 ml/min; Estimated Glomerular Filt Rate > 60; Glucose 218 mg/dL (75-110); Magnesium 2.6 mg/dL (1.6-2.3); Phosphorus 3.6 mg/dL (2.5-4.5); Potassium 3.6 mmol/L (3.4-5.0); Sodium 142 mmol/L (137-145)
[2020-01-21] MEDS: PYRIDOSTIGMINE BROMIDE 60 MG TABLET PO ×3 (06:40→21:16)
[2020-01-21] MEDS: INSULIN ASPART (*BKC) 100 UNITS/ML SUB-Q ×3 (06:44→17:52)
--- NOTE | 2020-01-21 08:59 | PM.IMPN ---
Progress Note: A&P Assessment and Plan (1) Acute respiratory failure with hypoxia: Code(s): J96.01 - Acute respiratory failure with hypoxia Status: Acute Assessment and Plan: Result of pneumonia secondary to COVID-19 infection. Appreciate help from inshore undersea warfare officer. Patient remains on ventilator With management per inshore undersea warfare officer. Currently on Precedex and Versed for sedation. Senior C Software Engineer was able to have conference call with patient's family on 01/19/2020 regarding all options including PEG tube and tracheostomy placement with LTAC placement or potentially comfort care measures. Family advised inshore undersea warfare officer at that time they would consider options and notify of their decision by Wednesday. Telemetry reviewed on 01/21/2020 with sinus rhythm with heart rate remaining controlled. Diuresed well with IV Lasix yesterday with additional IV Lasix given today. Continue to monitor. (2) Pneumonia due to COVID-19 virus: Code(s): U07.1 - COVID-19; J12.89 - Other viral pneumonia Status: Acute Assessment and Plan: Chest x-ray reviewed on 01/21/2020 with continued diffuse bilateral lung disease without significant change. COVID-19 testing positive. Appreciate input from Infectious Disease. Has been having fevers since yesterday afternoon. Acute phase reactants remain elevated with CRP greater than 45 today. Will continue supportive care. (3) Anemia: Qualifiers: Anemia type: other cause Other causes of anemia: acute posthemorrhagic Qualified Code(s): D62 - Acute posthemorrhagic anemia Code(s): D64.9 - Anemia, unspecified Status: Acute Assessment and Plan: Hemoglobin 7.4 on admission related to acute blood loss anemia from the hematuria. Patient transfused 1 unit of PRBC on 01/05/2020. Required 2nd unit PRBC on 01/11/2020. Hemoglobin decreased to 6.6 on 01/19/2020 with transfusion of 1 unit PRBC. Hemoglobin now stable at 8.2 today. Will continue to monitor and transfuse as needed. (4) Prostate cancer: Code(s): C61 - Malignant neoplasm of prostate Status: Acute Assessment and Plan: Appreciate help from Urology during this stay. Locally advanced and metastatic prostate cancer confirmed on cystoscopy from 01/04/2020. Family now considering options for care as noted above. (5) Acute retention of urine: Code(s): R33.8 - Other retention of urine Status: Acute Assessment and Plan: Appreciate help from urology as noted above. Now S/P cystoscopy with clot evacuation and cauterization of bladder neck on 01/04/2020. Had CBI post procedure which was stopped on 01/08/2020. Creatinine continues to remain in normal range at 1.00 today. Will continue to monitor. (6) Hydronephrosis: Qualifiers: Hydronephrosis type: other Qualified Code(s): N13.39 - Other hydronephrosis Code(s): N13.30 - Unspecified hydronephrosis Status: Acute Assessment and Plan: Indwelling Henry catheter. Renal function normal as noted above. (7) HTN (hypertension): Qualifiers: Hypertension type: essential hypertension Qualified Code(s): I10 - Essential (primary) hypertension Code(s): I10 - Essential (primary) hypertension Status: Acute Assessment and Plan: Blood pressure reviewed on 01/21/2020. Remains stable without medication. Will continue to monitor. (8) Diabetes: Qualifiers: Diabetes mellitus complication status: without complication Diabetes mellitus terminal operator insulin use: without terminal operator use Diabetes mellitus type: type 2 Qualified Code(s): E11.9 - Type 2 diabetes mellitus without complications Code(s): E11.9 - Type 2 diabetes mellitus without complications Status: Acute Assessment and Plan: Glucose reviewed on 01/21/2020. Glucose levels remain in low 200s. Lantus added. Will also continue sliding scale insulin. Will continue to monitor and adjust treatment as needed
[2020-01-21] MEDS: PANTOPRAZOLE SODIUM IV 40 MG VIAL IV PUSH (10:23)
[2020-01-21] MEDS: FUROSEMIDE INJ 40 MG/4 ML VIAL IV PUSH (10:27)
[2020-01-21] MEDS: INSULIN GLARGINE (*BKC) 100 UNITS/ML SUB-Q (10:27)
[2020-01-21 11:57] LABS: Glucose Point of Care 211 (65-105)
--- NOTE | 2020-01-21 12:23 | WPDINTPN ---
Progress Note: A&P Assessment and Plan (1) Acute respiratory failure with hypoxia: Code(s): J96.01 - Acute respiratory failure with hypoxia Status: Acute Assessment and Plan: Acute respiratory failure secondary to positive COVID-19. Intubated on 01/10/2020 - Pt on presentation did not have any respiratory symptoms but over his hospital stay he has became hypoxic requiring intubation - CT angiogram of lung on 01/08/2020: No pulmonary embolism, moderate amount of ground- glass opacities were seen. - 01/08 transferred to ICU and SARS-CoV-2 PCR positive - Chest x-ray shows stable diffuse bilateral disease, ABGs reviewed. Vent at adjustment for made. Will try to decrease the PEEP And FiO2 if he is able to tolerated. - continue airborne, droplet and contact isolation. - Patient status post 5 day course of Solu-Medrol 1 mg/kg/day - following Troponin, LDH, D-Dimer, CRP, Procal, Ferritin periodically - infectious disease following the patient - fentanyl and Versed were discontinued on 01/18/2020, started on Precedex. He was tachycardic and tachypneic yesterday and has been restarted back on Versed drip in addition to Precedex drip. - He has been diuresing well with Lasix. Will give Lasix today. Strict intake output record and elevate. (2) Acute retention of urine: Code(s): R33.8 - Other retention of urine Status: Acute Assessment and Plan: Taken to OR 01/03 for cysto and underwent cautery. CBI post procedure and stopped as urine has cleared Creatinine stable. Since creatinine stable urologist not going to pursue stent or nephrostomy tube for hydronephrosis. (3) Prostate cancer: Code(s): C61 - Malignant neoplasm of prostate Status: Acute Assessment and Plan: Recurrent and blocking urethra. New Henry's catheter has been placed by urologist during this admission. (4) Hydronephrosis: Qualifiers: Hydronephrosis type: other Qualified Code(s): N13.39 - Other hydronephrosis Code(s): N13.30 - Unspecified hydronephrosis Status: Acute Assessment and Plan: As above. Creatinine stable. - blocked ureter probable nonfunctioning kidney so no stent or nephrostomy tube planned per urology. (5) HTN (hypertension): Qualifiers: Hypertension type: essential hypertension Qualified Code(s): I10 - Essential (primary) hypertension Code(s): I10 - Essential (primary) hypertension Status: Acute Assessment and Plan: Blood pressure well controlled. hold p.o. blood pressure meds (6) Diabetes: Qualifiers: Diabetes mellitus type: type 2 Diabetes mellitus senior care insulin use: without intermediate project manager use Diabetes mellitus complication status: without complication Qualified Code(s): E11.9 - Type 2 diabetes mellitus without complications Code(s): E11.9 - Type 2 diabetes mellitus without complications Status: Acute Assessment and Plan: patient is on sliding scale And Accu-Cheks, Will increase the dose of Lantus because of persistent high blood sugars. (7) Anemia: Qualifiers: Anemia type: other cause Other causes of anemia: acute posthemorrhagic Qualified Code(s): D62 - Acute posthemorrhagic anemia Code(s): D64.9 - Anemia, unspecified Status: Acute Assessment and Plan: patient was transfused 1 unit of packed RBCs on 01/04 and 1 unit on 01/10 With the 3rd unit given on 01/18. - H and H has been stable. . - will hold therapeutic Lovenox (8) DVT (deep venous thrombosis): Code(s): I82.409 - Acute embolism and thrombosis of unspecified deep veins of unspecified lower extremity Status: Acute Assessment and Plan: Recent right lower extremity DVT and subsequent IVC filter placed approximately 14 day prior to admission, due to hematuria. CTA negative for PE. - echocardiogram on 01/10/2020 showed EF of 60-65% with normal L
[2020-01-21] MEDS: ACETAMINOPHEN 325 MG TABLET 650 MG PO (13:45)
[2020-01-21 14:12] LABS: Lactate Dehydrogenase 712 U/L (313-618)
[2020-01-21 14:51] LABS: CRP > 45.0 mg/dL (<1.0)
[2020-01-21 17:27] LABS: Glucose Point of Care 225 (65-105)
[2020-01-21] MEDS: ATORVASTATIN 40 MG TABLET PO (20:15)
[2020-01-21 23:31] LABS: Glucose Point of Care 183 (65-105)
[2020-01-22] VITALS (24 sets, daily range): BP systolic 89–135; BP diastolic 53–72; PULSE 89–115; RESP 14–24; TEMP 36.5–38.7; O2SAT 90–98
[2020-01-22 04:34] LABS: Alveolar/Arterial O2 Gradient 470.4 mmHg; Base Excess ABG 1.4 mEq/l (+/-2.0); Carboxyhemoglobin 0.3 % THb (0-2.0); Fractional Inspired Oxygen 80 %; HCO3 ABG 25.8 mEq/l (22.0-26.0); Methemoglobin ABG 0.3 %THb (0-1.5); Oxygen Content ABG 13.3 %vol (16.0-22.0); Oxygen Saturation ABG 90.8 % (95.0-100.0); Oxyhemoglobin 88.7 % THb (90.0-100.0); PO2 FiO2 Ratio Arterial Blood 0.73 %; Reduced Hemoglobin 10.7 %THb (0-5.0); Total Hemoglobin 10.6 g/dL (12.0-18.0); pH ABG 7.427 (7.350-7.450)
[2020-01-22 04:35] LABS: Arterial Blood Gas Vent Mode CMV; Arterial Blood Gas Ventilator rate 20 /MIN; Device VENTILATOR; Modified Allen's Test Pass; Site Drawn RIGHT RADIAL
[2020-01-22 04:36] LABS: Arterial Blood Gas PEEP 8 cmH2O; Arterial Blood Gas Tidal Volume 500 ml
[2020-01-22] MEDS: ACETAMINOPHEN 325 MG TABLET 650 MG PO ×3 (05:11→18:34)
[2020-01-22] MEDS: PYRIDOSTIGMINE BROMIDE 60 MG TABLET PO ×3 (05:14→20:41)
[2020-01-22 05:18] LABS: Hematocrit 25.2 % (42.0-52.0); Hemoglobin 7.7 g/dL (14.0-18.0); Mean Corpuscular HGB Conc 30.6 g/dl (32-36); Mean Corpuscular Hemoglobin 25.7 pg (26-34); Mean Platelet Volume 11.9 fl (7.4-10.4); Platelet Count Result 346 k/mm3 (150-375); Red Cell Distribution Width 19.1 % (11.5-14.5); White Blood Count 8.5 K/mm3 (4.5-10.0)
[2020-01-22 05:39] LABS: Alanine Aminotransferase 63 U/L (4-50); Albumin Level 2.5 g/dL (3.5-5.1); Alkaline Phosphatase 174 U/L (38-126); Aspartate Amino Transferase 127 U/L (17-59); Bilirubin,Total 0.3 mg/dL (0.2-1.3); Blood Urea Nitrogen 57 mg/dL (9-20); Calcium 6.8 mg/dL (8.4-10.2); Carbon Dioxide 28 mmol/L (22-30); Chloride 110 mmol/L (98-107); Estimated CRCL calculation 62 ml/min; Estimated Glomerular Filt Rate > 60; Glucose 207 mg/dL (75-110); Magnesium 2.7 mg/dL (1.6-2.3); Phosphorus 3.3 mg/dL (2.5-4.5); Potassium 3.5 mmol/L (3.4-5.0); Sodium 142 mmol/L (137-145)
[2020-01-22] MEDS: INSULIN ASPART (*BKC) 100 UNITS/ML SUB-Q ×2 (06:17→18:54)
[2020-01-22] MEDS: INSULIN GLARGINE (*BKC) 100 UNITS/ML 8 UNITS SUB-Q (09:00)
[2020-01-22] MEDS: PANTOPRAZOLE SODIUM IV 40 MG VIAL IV PUSH (09:26)
--- NOTE | 2020-01-22 10:53 | PCDIET ---
ICU Rounding Note: Patient continues to tolerate Vital 1.5 at 55mL/hr with Pro-Stat flush daily. No significant residuals. Plan for withdrawal of support on 01/23/20. Last recorded weight is 96.4kg which is decreased from last review. -I/O. Bowel Motility: +Diarrhea. FMS in place. Labs Reviewed: Glu (207), Alb (2.5), Gibran Ca (8.0) Meds Noted: Precedex, Novolog, Lantus, Versed, Protonix, Mestinon Additional Notes: Lantus increased today. No documented skin breakdown. Following daily in ICU rounds. Assessing/reassessing every Wednesday/Wednesday.
--- NOTE | 2020-01-22 12:12 | PM.IMPN ---
Progress Note: A&P Assessment and Plan (1) Acute respiratory failure with hypoxia: Code(s): J96.01 - Acute respiratory failure with hypoxia Status: Acute Assessment and Plan: Result of pneumonia secondary to COVID-19 infection. Appreciate help from [employer] school professional. Patient remains on ventilator with management per [employer] school professional. Remains on Precedex and Versed for sedation. Online Media Buyer was able to have conference call with patient's family on 01/19/2020 regarding all options including PEG tube and tracheostomy placement with LTAC placement or potentially comfort care measures. Spoke with Dr. Benson today. Family has considered their options over the weekend and have decided to move to comfort care tomorrow, 01/23/2020. In the meantime, will continue current treatment. Telemetry reviewed on 01/22/2020 with sinus rhythm. (2) Pneumonia due to COVID-19 virus: Code(s): U07.1 - COVID-19; J12.89 - Other viral pneumonia Status: Acute Assessment and Plan: Chest x-ray reviewed on 01/22/2020 with continued diffuse bilateral lung disease without change. COVID-19 testing positive. Appreciate input from Infectious Disease. Plan for comfort care tomorrow as noted above. (3) Anemia: Qualifiers: Anemia type: other cause Other causes of anemia: acute posthemorrhagic Qualified Code(s): D62 - Acute posthemorrhagic anemia Code(s): D64.9 - Anemia, unspecified Status: Acute Assessment and Plan: Hemoglobin 7.4 on admission related to acute blood loss anemia from the hematuria. Patient transfused 1 unit of PRBC on 01/05/2020. Required 2nd unit PRBC on 01/11/2020. Hemoglobin decreased to 6.6 on 01/19/2020 with transfusion of 1 unit PRBC. Hemoglobin stable at 7.7 today. Plan for comfort care tomorrow as noted above. (4) Prostate cancer: Code(s): C61 - Malignant neoplasm of prostate Status: Acute Assessment and Plan: Appreciate help from Urology during this stay. Locally advanced and metastatic prostate cancer confirmed on cystoscopy from 01/04/2020. Family has decided on comfort care as noted above. (5) Acute retention of urine: Code(s): R33.8 - Other retention of urine Status: Acute Assessment and Plan: Appreciate help from urology as noted above. Now S/P cystoscopy with clot evacuation and cauterization of bladder neck on 01/04/2020. Had CBI post procedure which was stopped on 01/08/2020. Creatinine 1.10 today. Plan for comfort care as noted above. (6) Hydronephrosis: Qualifiers: Hydronephrosis type: other Qualified Code(s): N13.39 - Other hydronephrosis Code(s): N13.30 - Unspecified hydronephrosis Status: Acute Assessment and Plan: Indwelling Henry catheter. Renal function normal as noted above. (7) HTN (hypertension): Qualifiers: Hypertension type: essential hypertension Qualified Code(s): I10 - Essential (primary) hypertension Code(s): I10 - Essential (primary) hypertension Status: Acute Assessment and Plan: Blood pressure reviewed on 01/22/2020. Remains stable without medication. Will continue to monitor. 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 Glucose levels remain 180s to 200. Will continue Lantus and sliding scale insulin. Will continue to monitor. (9) Myasthenia gravis: Code(s): G70.00 - Myasthenia gravis without (acute) exacerbation Status: Acute Assessment and Plan: Continue pyridostigmine. Completed 5 day course of steroids. (10) DVT (deep venous thrombosis):
--- NOTE | 2020-01-22 13:08 | WPDINTPN ---
Progress Note: A&P Assessment and Plan (1) Acute respiratory failure with hypoxia: Code(s): J96.01 - Acute respiratory failure with hypoxia Status: Acute Assessment and Plan: Acute respiratory failure secondary to positive COVID-19. Intubated on 01/10/2020 - Pt on presentation did not have any respiratory symptoms but over his hospital stay he has became hypoxic requiring intubation - CT angiogram of lung on 01/08/2020: No pulmonary embolism, moderate amount of ground- glass opacities were seen. - 01/08 transferred to ICU and SARS-CoV-2 PCR positive - Chest x-ray shows stable diffuse bilateral disease, ABGs reviewed. patient was hypoxemic, increased peep to 10, currently on 80% FiO2 - continue airborne, droplet and contact isolation. - Patient status post 5 day course of Solu-Medrol 1 mg/kg/day - following Troponin, LDH, D-Dimer, CRP, Procal, Ferritin periodically - infectious disease following the patient - fentanyl and Versed were discontinued on 01/18/2020, - Currently on Precedex and Versed infusion - diuresing well in response to diuretics, BUN elevated today, will hold diuresis (2) Acute retention of urine: Code(s): R33.8 - Other retention of urine Status: Acute Assessment and Plan: Taken to OR 01/03 for cysto and underwent cautery. CBI post procedure and stopped as urine has cleared Creatinine stable. Since creatinine stable urologist not going to pursue stent or nephrostomy tube for hydronephrosis. (3) Prostate cancer: Code(s): C61 - Malignant neoplasm of prostate Status: Acute Assessment and Plan: Recurrent and blocking urethra. New Henry's catheter has been placed by urologist during this admission. (4) Hydronephrosis: Qualifiers: Hydronephrosis type: other Qualified Code(s): N13.39 - Other hydronephrosis Code(s): N13.30 - Unspecified hydronephrosis Status: Acute Assessment and Plan: As above. Creatinine stable. - blocked ureter probable nonfunctioning kidney so no stent or nephrostomy tube planned per urology. (5) HTN (hypertension): Qualifiers: Hypertension type: essential hypertension Qualified Code(s): I10 - Essential (primary) hypertension Code(s): I10 - Essential (primary) hypertension Status: Acute Assessment and Plan: Blood pressure well controlled. hold p.o. blood pressure meds (6) Diabetes: Qualifiers: Diabetes mellitus type: type 2 Diabetes mellitus extermination supervisor insulin use: without extermination supervisor use Diabetes mellitus complication status: without complication Qualified Code(s): E11.9 - Type 2 diabetes mellitus without complications Code(s): E11.9 - Type 2 diabetes mellitus without complications Status: Acute Assessment and Plan: patient is on sliding scale And Accu-Cheks, continue Lantus (7) Anemia: Qualifiers: Anemia type: other cause Other causes of anemia: acute posthemorrhagic Qualified Code(s): D62 - Acute posthemorrhagic anemia Code(s): D64.9 - Anemia, unspecified Status: Acute Assessment and Plan: patient was transfused 1 unit of packed RBCs on 01/04 and 1 unit on 01/10 With the 3rd unit given on 01/18. - H and H has been stable. . - will hold therapeutic Lovenox (8) DVT (deep venous thrombosis): Code(s): I82.409 - Acute embolism and thrombosis of unspecified deep veins of unspecified lower extremity Status: Acute Assessment and Plan: Recent right lower extremity DVT and subsequent IVC filter placed approximately 14 day prior to admission, due to hematuria. CTA negative for PE. - echocardiogram on 01/10/2020 showed EF of 60-65% with normal LV systolic function. Mild pulmonary hypertension with RVSP of 40 mmHg avoid to moderate pulmonary regurgitation. - right lower extremity venous Dopplers done on 01/13/2020: No lower extremity DVT - hold
--- NOTE | 2020-01-22 15:58 | WPDINFPN2 ---
Progress Note: A&P Assessment and Plan (1) Pneumonia due to COVID-19 virus: Code(s): U07.1 - COVID-19; J12.89 - Other viral pneumonia Status: Acute Assessment and Plan: 1. Fever and hypoxemia due to CoVid viral pneumonia. Ongoing abnormal temperature, although without spikes 2. Chronic steroid, stress dose stopped 3. Prostate cancer 4. DVT 5. Diarrhea, C diff assay NR and low suspicion for C diff infection REC Off antimicrobials, no new interventions. Subjective Date/time seen: 01/22/20 15:58 Exam Narrative: Exam Narrative: t max past 24 hours : 38.4 core Const: General: no acute distress Neck: Neck: supple Resp: Effort & Inspection: normal respiratory effort Auscultation: clear to auscultation bilaterally Cardio: Rate: regular rate Rhythm: regular rhythm Heart sounds: no gallops and no murmurs GI: Inspection: non-distended GI Palp: Yes Soft to palpation and No Tenderness to palpation present (GI) Urinary Catheter: Urinary Catheter: patent and draining and urine clear Objective Data Vital Signs Vital Signs: Vital Signs - 24 hr 01/21/20 15:59 01/21/20 16:00 01/21/20 18:00 Temperature Pulse Rate 103 H 103 H 98 Respiratory Rate 28 H Blood Pressure 98/46 L Pulse Oximetry 93 91 01/21/20 18:02 01/21/20 20:00 01/21/20 20:51 Temperature 37.6 C Pulse Rate 110 H 93 93 Respiratory Rate 20 Blood Pressure 100/51 L Pulse Oximetry 94 92 90 01/21/20 22:00 01/21/20 22:59 01/22/20 00:00 Temperature 37.6 C H Pulse Rate 96 96 100 Respiratory Rate 25 H 18 Blood Pressure 99/58 L 126/53 L Pulse Oximetry 90 91 90 01/22/20 02:00 01/22/20 02:18 01/22/20 04:00 Temperature 37.7 C H Pulse Rate 101 H 108 H 112 H Respiratory Rate 20 24 H Blood Pressure 125/56 L 135/61 Pulse Oximetry 91 92 93 01/22/20 04:38 01/22/20 05:11 01/22/20 06:00 Temperature 38.4 C H 37.7 C H Pulse Rate 114 H 100 Respiratory Rate 23 H Blood Pressure 115/66 Pulse Oximetry 92 92 01/22/20 08:00 01/22/20 08:33 01/22/20 10:00 Temperature 36.5 C Pulse Rate 93 89 94 Respiratory Rate 16 20 Blood Pressure 89/62 L 123/64 Pulse Oximetry 92 93 93 01/22/20 11:19 01/22/20 12:39 01/22/20 14:11 Temperature 38.0 C H Pulse Rate 94 93 Respiratory Rate Blood Pressure Pulse Oximetry 96 98 Intake/Output Intake/Output: Intake & Output 01/19/20 01/20/20 01/21/20 01/22/20 23:59 23:59 23:59 23:59 Intake Total 2232 1601 2058 1066 Output Total 975 9101 2969 650 Balance 0398 -81 -965 416 Meds/Results Medications: Active Medications Generic Name Dose Route Start Last Admin Trade Name Freq PRN Reason Stop Dose Admin Acetaminophen 650 mg 01/04/20 15:50 01/22/20 12:39 Tylenol Tablet PO 650 mg Q6H PRN Administration Mild Pain (1-3) or Fever Atorvastatin Calcium 40 mg 01/04/20 21:00 01/21/20 20:15 Lipitor PO 40 mg HS LUCIANO Administration Dextrose 12.5 gm 01/04/20 17:07 Dextrose 50% Syringe IV PUSH PRN PRN Hypoglycemia Protocol Glucagon 1 mg 01/04/20 17:07 Glucagon For Inj IM PRN PRN Hypoglycemia Protocol Glucose 15 gm 01/04/20 17:07 Glutose 15 PO PRN PRN Hypoglycemia Protocol Dextrose 1,000 mls @ 100 mls/hr 01/04/20 17:07 Dextrose 5% 1,000 Ml IVPB PRN PRN Hypoglycemia Protocol Midazolam HCl 50 mg in 100 mls @ 6 mls/hr 01/10/20 04:35 01/22/20 06:05 Versed 50 Mg/D5w 100 Ml IV CONT Not Given .[id number] LUCIANO Protocol 3 MG/HR Dexmedetomidine HCl 400 mcg in 100 mls @ 17.4 mls/hr 01/18/20 10:20 01/22/20 15:05 Precedex 400 Mcg/D5w 100 Ml IV CONT 0.7 mcg/kg/hr .[id number] LUCIANO 17.4 mls/hr Administration Protocol 0.8 MCG/KG/HR Insulin Aspart 2 - 5 units 01/10/20 12:00 05/11/20 12:37 Novolog SUB-Q Not Given Q6H [facility] Protocol Insulin Glargine 8 units 01/22/20 09:00 Lantus SUB-Q DAILY [facility] Mult
[2020-01-22 16:28] LABS: Glucose Point of Care 194 (65-105)
[2020-01-22 18:56] LABS: Glucose Point of Care 207 (65-105)
[2020-01-22] MEDS: ATORVASTATIN 40 MG TABLET PO (20:41)
[2020-01-22 23:48] LABS: Glucose Point of Care 197 (65-105)
[2020-01-23] VITALS (13 sets, daily range): BP systolic 98–129; BP diastolic 50–61; PULSE 102–118; RESP 19–27; TEMP 37.1–38.5; O2SAT 90–97
[2020-01-23] MEDS: ACETAMINOPHEN 325 MG TABLET 650 MG PO ×2 (02:35→08:29)
[2020-01-23 04:53] LABS: Hematocrit 26.6 % (42.0-52.0); Hemoglobin 8.1 g/dL (14.0-18.0); Mean Corpuscular HGB Conc 30.5 g/dl (32-36); Mean Corpuscular Hemoglobin 25.5 pg (26-34); Mean Corpuscular Volume 83.6 fl (80-100); Mean Platelet Volume 11.8 fl (7.4-10.4); Platelet Count Result 395 k/mm3 (150-375); Red Blood Count 3.18 M/mm3 (4.6-6.20); Red Cell Distribution Width 19.4 % (11.5-14.5); White Blood Count 7.9 K/mm3 (4.5-10.0)
--- NOTE | 2020-01-23 04:53 | ECG_ITS ---
Measurements Intervals [place] Rate: 116 P: 0 MN: 145 QRS: -17 QRSD: 101 T: 111 QT: 316 QTc: 440 Interpretive Statements SINUS TACHYCARDIA BORDERLINE ST-T WAVE ABNORMALITY- HIGH LATERAL LEADS ABNORMAL ECG Electronically Signed On 01-23-2020 7:14:44 CDT by Kemal Gramajo D.O.
[2020-01-23 05:07] LABS: Magnesium 2.8 mg/dL (1.6-2.3); Phosphorus 4.2 mg/dL (2.5-4.5)
[2020-01-23 05:46] LABS: Blood Urea Nitrogen 68 mg/dL (9-20); Calcium 6.9 mg/dL (8.4-10.2); Carbon Dioxide 29 mmol/L (22-30); Chloride 109 mmol/L (98-107); Estimated CRCL calculation 51 ml/min; Estimated Glomerular Filt Rate 59; Glucose 229 mg/dL (75-110); Potassium 3.6 mmol/L (3.4-5.0); Sodium 142 mmol/L (137-145)
[2020-01-23] MEDS: PYRIDOSTIGMINE BROMIDE 60 MG TABLET PO (06:03)
[2020-01-23] MEDS: INSULIN ASPART (*BKC) 100 UNITS/ML SUB-Q (06:03)
[2020-01-23] MEDS: PANTOPRAZOLE SODIUM IV 40 MG VIAL IV PUSH (08:14)
--- NOTE | 2020-01-23 09:32 | WPDINTPN ---
Progress Note: A&P Assessment and Plan (1) Acute respiratory failure with hypoxia: Code(s): J96.01 - Acute respiratory failure with hypoxia Status: Acute Assessment and Plan: Acute respiratory failure secondary to positive COVID-19. Intubated on 01/10/2020 - Pt on presentation did not have any respiratory symptoms but over his hospital stay he has became hypoxic requiring intubation - CT angiogram of lung on 01/08/2020: No pulmonary embolism, moderate amount of ground- glass opacities were seen. - 01/08 transferred to ICU and SARS-CoV-2 PCR positive - Chest x-ray shows stable diffuse bilateral disease, ABGs reviewed. patient on 80% FiO2 and peep of 10 - continue airborne, droplet and contact isolation. - Patient status post 5 day course of Solu-Medrol 1 mg/kg/day - following Troponin, LDH, D-Dimer, CRP, Procal, Ferritin periodically - infectious disease following the patient - Currently on Precedex and Versed infusion - family will be coming to withdraw support today, 01/23/2020 (2) Acute retention of urine: Code(s): R33.8 - Other retention of urine Status: Acute Assessment and Plan: Taken to OR 01/03 for cysto and underwent cautery. CBI post procedure and stopped as urine has cleared Creatinine stable. Since creatinine stable urologist not going to pursue stent or nephrostomy tube for hydronephrosis. (3) Prostate cancer: Code(s): C61 - Malignant neoplasm of prostate Status: Acute Assessment and Plan: Recurrent and blocking urethra. New Henry's catheter has been placed by urologist during this admission. (4) Hydronephrosis: Qualifiers: Hydronephrosis type: other Qualified Code(s): N13.39 - Other hydronephrosis Code(s): N13.30 - Unspecified hydronephrosis Status: Acute Assessment and Plan: As above. Creatinine stable. - blocked ureter probable nonfunctioning kidney so no stent or nephrostomy tube planned per urology. (5) HTN (hypertension): Qualifiers: Hypertension type: essential hypertension Qualified Code(s): I10 - Essential (primary) hypertension Code(s): I10 - Essential (primary) hypertension Status: Acute Assessment and Plan: Blood pressure well controlled. hold p.o. blood pressure meds (6) Diabetes: Qualifiers: Diabetes mellitus type: type 2 Diabetes mellitus longterm insulin use: without longterm use Diabetes mellitus complication status: without complication Qualified Code(s): E11.9 - Type 2 diabetes mellitus without complications Code(s): E11.9 - Type 2 diabetes mellitus without complications Status: Acute Assessment and Plan: patient is on sliding scale And Accu-Cheks, continue Lantus (7) Anemia: Qualifiers: Anemia type: other cause Other causes of anemia: acute posthemorrhagic Qualified Code(s): D62 - Acute posthemorrhagic anemia Code(s): D64.9 - Anemia, unspecified Status: Acute Assessment and Plan: patient was transfused 1 unit of packed RBCs on 01/04 and 1 unit on 01/10 With the 3rd unit given on 01/18. - H and H has been stable. . - will hold therapeutic Lovenox (8) DVT (deep venous thrombosis): Code(s): I82.409 - Acute embolism and thrombosis of unspecified deep veins of unspecified lower extremity Status: Acute Assessment and Plan: Recent right lower extremity DVT and subsequent IVC filter placed approximately 14 day prior to admission, due to hematuria. CTA negative for PE. - echocardiogram on 01/10/2020 showed EF of 60-65% with normal LV systolic function. Mild pulmonary hypertension with RVSP of 40 mmHg avoid to moderate pulmonary regurgitation. - right lower extremity venous Dopplers done on 01/13/2020: No lower extremity DVT - hold Lovenox 1 mg /kg q.day (9) Myasthenia gravis: Code(s): G70.00 - Myasthenia gravis without (acute
--- NOTE | 2020-01-23 10:34 | PCDIET ---
Nutrition Follow-Up Complete: Nutrition Diagnosis: Inadequate oral intake related to oral intubation as evidenced by NPO status. Nutrition Goal: Patient to meet estimated nutritional needs. Goal met. Patient has been tolerating Vital 1.5 at 55mL/hr goal rate with Pro-Stat flush daily. No reported residuals. Plan to withdraw support today. Last recorded weight is 96.4 kg. Bowel Motility: +Liquid stools; FMS in place. Labs Reviewed: Hgb (8.1), Hct (26.6), Glu (229), BUN (68), Cl (109), Gibran Ca (8.1) Meds Noted: Precedex, Novolog, Lantus, Versed, Protonix, Mestinon Additional Notes: No documented skin breakdown. If plan changes and care is not withdrawn, recommend continuing present tube feeding. Nutrition Monitoring and Evaluation: Follow up every Wednesday/Wednesday. Follow daily in ICU rounds.
[2020-01-24 10:59] LABS: Procalcitonin 0.52 ng/mL (<0.10)
--- NOTE | 2020-02-21 21:59 | P.DN_ITS ---
Discharge Sum: Prov Provider Primary care physician: UNKNOWN,DOCTOR Admitting provider: Rajat Melgar MD Consults: 01/03/20 18:31 Consult to Physician Routine Comment: Consulting Provider: Prudencio Veloz Reason for consultation: Johnson catheter malfunction Has provider been notified: Yes 01/10/20 Consult to Physician Routine Comment: paged @ 1000 Consulting Provider: Maynor Gardiner shredding machine tender/MD group to consult: ID Reason for consultation: COVID-19 Has provider been notified: Yes Discharge Sum: Diag Contributing Factors (1) Acute respiratory failure with hypoxia: (2) Pneumonia due to COVID-19 virus: (3) Anemia: (4) Prostate cancer: (5) Acute retention of urine: (6) Hydronephrosis: (7) HTN (hypertension): (8) Diabetes: (9) Myasthenia gravis: (10) DVT (deep venous thrombosis): Discharge Sum: Summary Date and Time Date of admission: 01/05/20 13:03 Summary Details: 74yo male with metastatic (bones and lymph nodes) prostate cancer, chronic Plavix therapy admitted on 01/04/20 due to minimal output from his Johnson catheter and hematuria. Patient did have cystoscopy and clot evacuation on 01/04/20. Recent right lower extremity DVT and subsequent IVC filter placed prior to admission. Left LE venous Doppler negative on this admission. 02 sat borderline low noted on 01/08/20. CTA pulmonary showed no PE but moderate amount of groundglass airspace disease. His respiratory condition worsened he was moved to the ICU requiring intubation 01/09/20. COVID-19 was positive. He was treated with appropriate treatments that were know at that time. ID assisted in the patient;s care. Patient had prolonged intubation. Options discussed with family. They opted to kellie p the patient comfortable. Patient extubated and on Additional Data Attending physician: Maxx Munguia MD
== END 2020-01-23 11:40 | disposition expired | DRG 668 ==
LOC: ANHED 18:35 → ANH2MED 19:48 → ANHICU 01-09 11:06
PROVIDERS: Family Medicine; Hospitalist; Internal Medicine; Internal Medicine Critical Care Medicine; Urology; Admitting Provider Internal Medicine; Emergency Provider Emergency Medicine; Visit Provider Internal Medicine
PROC: 0TCB8ZZ Extirpation of Matter from Bladder, Via Natural or Artificial Opening Endoscopic (ICD-10-PCS; CPT 52001; principal; 2020-01-04 15:30)
DX: N13.30 Unspecified hydronephrosis (principal); U07.1 COVID-19; J12.89 Other viral pneumonia; J96.01 Acute respiratory failure with hypoxia; I82.409 Acute embolism and thrombosis of unspecified deep veins of unspecified lower extremity; D62 Acute posthemorrhagic anemia; C79.51 Secondary malignant neoplasm of bone; C67.9 Malignant neoplasm of bladder, unspecified; R33.9 Retention of urine, unspecified; C61 Malignant neoplasm of prostate; E11.9 Type 2 diabetes mellitus without complications; I10 Essential (primary) hypertension; G70.00 Myasthenia gravis without (acute) exacerbation; Z66 Do not resuscitate
CPT/HCPCS: 31500; 36415; 36430; 36600; 51700; 71045; 71046; 71275; 74176; 80048; 80053; 81001; 82375; 82607; 82728; 82746; 82805; 83050; 83540; 83550; 83615; 83735; 83880; 84100; 84132; 84145; 84484; 85014; 85018; 85025; 85027; 85380; 85610; 85730; 86140; 86850; 86900; 86901; 86923; 87040; 87324; 87635; 89055; 93005; 93306; 93971; 94002; 94003; 96361; 96374; 96375; 97161; 97165; 99285; A9270; C1751; C1758; C1887; C9113; G0378; J0330; J0456; J0690; J1100; J1644; J1650; J1815; J1940; J2250; J2270; J2405; J2704; J2930; J3010; J3480; J7030; J7050; J7120; J7512; P9016; Q9967; U0003